=== PATIENT | female | born 1975 | race Caucasian/White ===

== ENCOUNTER 2016-03-23 10:10 | Emergency (ER) | payer SELFPAY ==
[2016-03-23 10:29] VITALS: BP 153/99
[2016-03-23] MEDS ORDERED: ONDANSETRON 4 MG TAB.RAPDIS PO ONE (10:30)
--- NOTE | 2016-03-23 10:30 | ER Document Report ---
ED Medical Screen (RME) - General Stated Complaint: STOMACH PAIN Notes: all night throwing up, 5pm sudden onset with emesis x8. states she had sudden onset abdominal pain 4/5 in severity at 4pm, epigastric area admits to hematemsis x 5 took phenergan without any improvement h/o GERD previously on Nexium PSH for tubal ligation TRAVEL OUTSIDE OF THE [place] IN LAST 30 DAYS: No - Related Data Allergies/Adverse Reactions: diphenhydramine [From Benadryl] Allergy (Verified 03/23/16 10:26) lithium Allergy (Verified 03/23/16 10:26) Past Medical History Neurological Medical History: Reports: Hx Seizures Psychiatric Medical History: Reports: Hx Bipolar Disorder Past Surgical History: Reports: Hx Tonsillectomy, Hx Tubal Ligation - Immunizations Hx Diphtheria, Pertussis, Tetanus Vaccination: Yes
== END 2016-03-23 11:30 | disposition left against medical advice (07) ==
LOC: ER 10:10
DX: Z53.9 Procedure and treatment not carried out, unspecified reason (principal); R10.9 Unspecified abdominal pain; R10.13 Epigastric pain
CPT/HCPCS: 99281; S0119

== ENCOUNTER 2016-04-17 16:38 | Emergency (ER) | payer SELFPAY ==
[2016-04-17] MEDS ORDERED: ASPIRIN 81 MG TABLET, CHEWABLE PO ONE (17:11)
[2016-04-17] MEDS ORDERED: ONDANSETRON 4 MG TAB.RAPDIS PO ONE (17:11)
--- NOTE | 2016-04-17 17:12 | ER Document Report ---
ED Medical Screen (RME) - General Stated Complaint: CHEST PAIN Mode of Arrival: Ambulatory Information source: Patient Notes: Patient complains of right-sided chest pain started yesterday. Patient complains of right-sided abdominal pain for the past 3 days. Patient reports nausea vomiting 3 episodes today. No urinary symptoms. Patient reports occasional difficulty breathing. hx: Hepatitis C, PTSD, anxiety, bipolar, hypertension I have greeted and performed a rapid initial assessment of this patient. A comprehensive ED assessment and evaluation of the patient, analysis of test results and completion of the medical decision making process will be conducted by additional ED providers. TRAVEL OUTSIDE OF THE [place] IN LAST 30 DAYS: No - Related Data Allergies/Adverse Reactions: diphenhydramine [From Benadryl] Allergy (Verified 03/23/16 10:26) lithium Allergy (Verified 03/23/16 10:26) Past Medical History Neurological Medical History: Reports: Hx Seizures Renal/ Medical History: Denies: Hx Peritoneal Dialysis Psychiatric Medical History: Reports: Hx Bipolar Disorder Past Surgical History: Reports: Hx Tonsillectomy, Hx Tubal Ligation - Immunizations Hx Diphtheria, Pertussis, Tetanus Vaccination: Yes Physical Exam - Abdominal Tenderness: Tender - Right side of abdomen
[2016-04-17 17:52] LABS: ABSOLUTE BASOPHILS # (AUTO) 0.1 10^3/uL (0.0-0.2); ABSOLUTE LYMPHOCYTES (AUTO) 2.6 10^3/uL (0.5-4.7); ABSOLUTE MONOCYTES (AUTO) 0.6 10^3/uL (0.1-1.4); ABSOLUTE NEUT (AUTO) 6.8 10^3/uL (1.7-8.2); BASOPHILS % (AUTO) 0.8 % (0-2); EOSINOPHILS % (AUTO) 0.2 % (0-6); HEMATOCRIT 40.1 % (36.0-47.0); HEMOGLOBIN 13.7 g/dL (12.0-15.5); LYMPHOCYTES % (AUTO) 25.8 % (13-45); MEAN CORPUSCULAR HEMOGLOBIN 29.8 pg (27.0-33.4); MEAN CORPUSCULAR HGB CONC 34.1 g/dL (32.0-36.0); MEAN CORPUSCULAR VOLUME 87 fl (80-97); MONOCYTES % (AUTO) 5.8 % (3-13); RED CELL DISTRIBUTION WIDTH 13.5 % (11.5-14.0); SEGMENTED NEUTROPHILS % (AUTO) 67.4 % (42-78); WHITE BLOOD COUNT 10.1 10^3/uL (4.0-10.5)
[2016-04-17 18:07] LABS: ALANINE AMINOTRANSFERASE 40 U/L (9-52); ALBUMIN 4.1 g/dL (3.5-5.0); ALKALINE PHOSPHATASE 61 U/L (38-126); ANION GAP 14 (5-19); ASPARTATE AMINO TRANSFERASE 28 U/L (14-36); BILIRUBIN,TOTAL 0.3 mg/dL (0.2-1.3); BLOOD UREA NITROGEN 12 mg/dL (7-20); CALCIUM 9.4 mg/dL (8.4-10.2); CARBON DIOXIDE 25 mmol/L (22-30); CHLORIDE 103 mmol/L (98-107); CREATINE KINASE 54 U/L (30-135); CREATININE RESULT 0.85 mg/dL (0.52-1.25); GLUCOSE 85 mg/dL (75-110); LIPASE 69.9 U/L (23-300); POTASSIUM 4.1 mmol/L (3.6-5.0); SODIUM 141.6 mmol/L (137-145); TOTAL PROTEIN 8.1 g/dL (6.3-8.2)
[2016-04-17 18:18] LABS: CREATINE KINASE MB < 0.22 ng/mL (<4.55); TROPONIN I < 0.012 ng/mL
[2016-04-17 23:27] LABS: APPEARANCE,URINE CLOUDY; BILIRUBIN,URINE NEGATIVE (NEGATIVE); GLUCOSE, URINE NEGATIVE (NEGATIVE); KETONES,URINE NEGATIVE (NEGATIVE); LEUKOCYTE ESTERASE,URINE LARGE (NEGATIVE); NITRITE,URINE NEGATIVE (NEGATIVE); PROTEIN,URINE NEGATIVE (NEGATIVE); UROBILINOGEN,URINE NEGATIVE mg/dL (<2.0)
[2016-04-17 23:42] LABS: URINE BARBITURATES SCREEN NEGATIVE; URINE METHADONE SCREEN NEGATIVE; URINE OPIATES LOW NEGATIVE; URINE PHENCYCLIDINE SCREEN NEGATIVE
== END 2016-04-17 22:50 | disposition left against medical advice (07) ==
LOC: ER 16:38
DX: R07.9 Chest pain, unspecified (principal); R10.9 Unspecified abdominal pain; R11.2 Nausea with vomiting, unspecified; R06.00 Dyspnea, unspecified; I10 Essential (primary) hypertension; Z88.8 Allergy status to other drugs, medicaments and biological substances; Z53.20 Procedure and treatment not carried out because of patient's decision for unspecified reasons
CPT/HCPCS: 99281; 36415; 82553; 82550; 83690; 84703; 85025; 80053; 81001; 84484; 80307; 71020; S0119

== ENCOUNTER 2016-04-18 09:11 | Inpatient (IN) | payer SELFPAY ==
[2016-04-18 10:18] LABS: ABSOLUTE LYMPHOCYTES (AUTO) 2.7 10^3/uL (0.5-4.7); ABSOLUTE MONOCYTES (AUTO) 0.7 10^3/uL (0.1-1.4); ABSOLUTE NEUT (AUTO) 11.3 10^3/uL (1.7-8.2); BASOPHILS % (AUTO) 0.2 % (0-2); HEMATOCRIT 43.2 % (36.0-47.0); HEMOGLOBIN 14.9 g/dL (12.0-15.5); HGB HCT DIFFERENCE 1.5; LYMPHOCYTES % (AUTO) 18.1 % (13-45); MEAN CORPUSCULAR HEMOGLOBIN 30.1 pg (27.0-33.4); MEAN CORPUSCULAR HGB CONC 34.5 g/dL (32.0-36.0); MEAN CORPUSCULAR VOLUME 87 fl (80-97); MONOCYTES % (AUTO) 4.6 % (3-13); RED BLOOD COUNT 4.95 10^6/uL (3.72-5.28); RED CELL DISTRIBUTION WIDTH 13.6 % (11.5-14.0); SEGMENTED NEUTROPHILS % (AUTO) 77.1 % (42-78); WHITE BLOOD COUNT 14.7 10^3/uL (4.0-10.5)
[2016-04-18 10:25] LABS: APPEARANCE,URINE SLIGHTLY-CLOUDY; BILIRUBIN,URINE NEGATIVE (NEGATIVE); GLUCOSE, URINE NEGATIVE (NEGATIVE); KETONES,URINE NEGATIVE (NEGATIVE); LEUKOCYTE ESTERASE,URINE SMALL (NEGATIVE); NITRITE,URINE NEGATIVE (NEGATIVE); PROTEIN,URINE 100 mg/dL (NEGATIVE); URINE SPECIFIC GRAVITY 1.015
[2016-04-18 10:36] LABS: ALANINE AMINOTRANSFERASE 46 U/L (9-52); ALBUMIN 5.1 g/dL (3.5-5.0); ALKALINE PHOSPHATASE 76 U/L (38-126); ANION GAP 16 (5-19); ASPARTATE AMINO TRANSFERASE 31 U/L (14-36); BILIRUBIN,TOTAL 0.6 mg/dL (0.2-1.3); BLOOD UREA NITROGEN 11 mg/dL (7-20); CALCIUM 10.5 mg/dL (8.4-10.2); CARBON DIOXIDE 26 mmol/L (22-30); CHLORIDE 103 mmol/L (98-107); CREATININE RESULT 0.96 mg/dL (0.52-1.25); GLUCOSE 104 mg/dL (75-110); POTASSIUM 4.3 mmol/L (3.6-5.0); SODIUM 144.8 mmol/L (137-145); TOTAL PROTEIN 9.1 g/dL (6.3-8.2)
[2016-04-18] MEDS ORDERED: ONDANSETRON 4 MG TAB.RAPDIS PO ONE (10:37)
--- NOTE | 2016-04-18 10:39 | ER Document Report ---
ED Medical Screen (RME) - General Chief Complaint: Vomiting Stated Complaint: DIZZY Mode of Arrival: Ambulatory Information source: Patient Notes: Patient presents complaining of abdominal tenderness that radiates around to her back for the past 3 days. Patient reports subjective fever. Patient complains of nausea, vomiting, diarrhea. Patient states she's vomited about 4 times today and had diarrhea 2. Patient denies any urinary symptoms hx: Hepatitis C, bipolar, PTSD, anxiety I have greeted and performed a rapid initial assessment of this patient. A comprehensive ED assessment and evaluation of the patient, analysis of test results and completion of the medical decision making process will be conducted by additional ED providers. TRAVEL OUTSIDE OF THE [place] IN LAST 30 DAYS: No - Related Data Allergies/Adverse Reactions: diphenhydramine [From Benadryl] Allergy (Verified 04/18/16 09:26) lithium Allergy (Verified 04/18/16 09:26) Past Medical History Neurological Medical History: Reports: Hx Seizures Renal/ Medical History: Denies: Hx Peritoneal Dialysis Psychiatric Medical History: Reports: Hx Bipolar Disorder Past Surgical History: Reports: Hx Tonsillectomy, Hx Tubal Ligation - Immunizations Hx Diphtheria, Pertussis, Tetanus Vaccination: Yes Physical Exam - Vital signs Vitals: Temp Pulse Resp BP Pulse Ox 98.0 F 97 18 149/105 H 98 04/18/16 09:29 04/18/16 09:29 04/18/16 09:29 04/18/16 09:29 04/18/16 09:29 - Abdominal Tenderness: Tender - Generalized abdomen Course - Vital Signs Vital signs: Temp Pulse Resp BP Pulse Ox 98.0 F 97 18 149/105 H 98 04/18/16 09:29 04/18/16 09:29 04/18/16 09:29 04/18/16 09:29 04/18/16 09:29 - Laboratory Result Diagrams: 04/18/16 09:50 04/18/16 09:50 Laboratory results interpreted by me: 04/18/16 04/18/16 04/18/16 09:50 09:50 09:50 WBC 14.7 H Absolute Neutrophils 11.3 H Calcium 10.5 H Total Protein 9.1 H Albumin 5.1 H Urine Protein 100 H Urine Urobilinogen 2.0 H Ur Leukocyte Esterase SMALL H
[2016-04-18 10:42] LABS: ADD ON TESTING BLD IN LAB ACKNOWLEDGE
[2016-04-18 11:24] LABS: LIPASE 249.2 U/L (23-300)
[2016-04-18] MEDS ORDERED: MORPHINE SULFATE 10 MG/ML INJ IM ONE (11:41)
[2016-04-18] MEDS ORDERED: PROMETHAZINE HCL INJ 25 MG/1 ML VIAL IM ONE (11:42)
--- NOTE | 2016-04-18 11:47 | ER Document Report ---
ED GI/ - General Chief Complaint: Vomiting Stated Complaint: DIZZY Mode of Arrival: Ambulatory Information source: Patient Notes: This is a 40-year-old female who presents with nausea vomiting and diarrhea as well as upper abdominal pain and right flank pain for the past 2 days. She presented to the ER last night but she left without being seen. She states that she continued to vomit last night and so she returned to the ER today. She reports subjective fevers at home. She has had no known sick contacts or recent travel. She denies dysuria or hematuria. She states that she has not been able to tolerate anything by mouth. She received sublingual Zofran upon arrival but states that it has not helped. TRAVEL OUTSIDE OF THE [place] IN LAST 30 DAYS: No - Related Data Allergies/Adverse Reactions: diphenhydramine [From Benadryl] Allergy (Verified 04/18/16 09:26) lithium Allergy (Verified 04/18/16 09:26) Home Medications: Current Home Medications Clonazepam [Klonopin 1 mg Tablet] 1 mg PO BID 04/18/16 [History] Clonidine HCl [Catapres 0.1 mg Tablet] 0.1 mg PO QAM 04/18/16 [History] Clonidine HCl [Catapres] 0.2 mg PO QHS 04/18/16 [History] Gabapentin [Neurontin 300 mg Capsule] 300 mg PO TID 04/18/16 [History] Quetiapine Fumarate [Seroquel Xr] 300 mg PO QHS 04/18/16 [History] Past Medical History - General Information source: Patient - Social History Smoking Status: Never Smoker Family History: Reviewed & Not Pertinent Patient has suicidal ideation: No Patient has homicidal ideation: No - Past Medical History Cardiac Medical History: Reports: None Neurological Medical History: Reports: Hx Seizures Renal/ Medical History: Denies: Hx Peritoneal Dialysis GI Medical History: Reports: Hx Hepatitis Psychiatric Medical History: Reports: Hx Anxiety, Hx Bipolar Disorder Past Surgical History: Reports: Hx Tonsillectomy, Hx Tubal Ligation - Immunizations Hx Diphtheria, Pertussis, Tetanus Vaccination: Yes Review of Systems - Review of Systems Notes: REVIEW OF SYSTEMS: CONSTITUTIONAL : Subjective fevers at home for 2 days EENT: Denies eye, ear, throat, or mouth pain or symptoms. Denies nasal or sinus congestion. CARDIOVASCULAR: Denies chest pain. RESPIRATORY: Denies cough, cold, or chest congestion. Denies shortness of breath, difficulty breathing, or wheezing. GASTROINTESTINAL: As per history of present illness GENITOURINARY: Mild dysuria 1 day MUSCULOSKELETAL: Denies neck or back pain or joint pain or swelling. SKIN: Denies rash or skin lesions. HEMATOLOGIC : Denies easy bruising or bleeding. LYMPHATIC: Denies swollen, enlarged glands. NEUROLOGICAL: Headache as per history of present illness PSYCHIATRIC: Denies anxiety or stress or depression. ALL OTHER SYSTEMS REVIEWED AND NEGATIVE. Physical Exam - Vital signs Vitals: Temp Pulse Resp BP Pulse Ox 98.0 F 97 18 149/105 H 98 04/18/16 09:29 04/18/16 09:29 04/18/16 09:29 04/18/16 09:29 04/18/16 09:29 - Notes Notes: PHYSICAL EXAMINATION: GENERAL: Well-appearing, well-nourished and in no acute distress, but appears to not feel well. HEAD: Atraumatic, normocephalic. EYES: Pupils equal round and reactive to light, extraocular movements intact, sclera anicteric, conjunctiva are normal. No photophobia ENT: nares patent, oropharynx clear without exudates. Moist mucous membranes. NECK: Normal range of motion, supple without lymphadenopathy LUNGS: Breath sounds clear to auscultation bilaterally and equal. No wheezes rales or rhonchi. HEART: Regular rate and rhythm without murmurs ABDOMEN: Soft, mild tenderness to palpation in the right upper quadrant and right flank. No guarding, rebound, or rigidity. Negative Bueno sign. Normal Bowel sounds EXTREMITIES: Normal range of motion NEUROLOGICAL: Cranial nerves grossly intact. Normal speech, normal gait. No gross focal motor or sensory deficit PSYCH: Normal mood, normal affect. SKIN: Warm, Dry, normal turgor, no rashes or lesions noted. Course - Re-evaluation Re-evalutation: 04/18/16 11:46 Patient has a benign abdominal exam at this time but noted to have a leukocytosis and urinary tract infection. We'll obtain a stone protocol CT and will treat her nausea and pain. 04/18/16 14:[address] scan reviewed. The patient does have a leukocytosis. Her CT image traits no kidney stones. However, her appendix was difficult to visualize and what was felt to be the appendix has a thickened wall. I went back to reexamine the patient states she is feeling much better. On her abdominal exam however she does have suprapubic and right lower quadrant tenderness to deep palpation. There is no guarding or rebound and no acute abdomen. However with this right lower quadrant tenderness along with the findings on the CT scan concerning for possible early appendicitis, I have elected to consult the surgeon. I did discuss the case with who at this point recommends IV fluids, antibiotics, and he will evaluate the patient 04/18/16 14:24 Discussed with surgery again and the plan is to admit the patient upstairs with IV fluids and IV antibiotics and keep her nothing by mouth and he will evaluate her for appendectomy later today. Discussed this with the patient and she is very comfortable with this plan and all questions are answered. 04/18/16 22:49 - Vital Signs Vital signs: Temp Pulse Resp BP Pulse Ox 98.7 F 100 16 170/91 H 99 04/18/16 19:20 04/18/16 19:20 04/18/16 19:20 04/18/16 19:20 04/18/16 19:20 - Laboratory Result Diagrams: 04/18/16 09:50 04/18/16 09:50 Laboratory results interpreted by me: 04/18/16 04/18/16 04/18/16 09:50 09:50 09:50 WBC 14.7 H Absolute Neutrophils 11.3 H Calcium 10.5 H Total Protein 9.1 H Albumin 5.1 H Urine Protein 100 H Urine Urobilinogen 2.0 H Ur Leukocyte Esterase SMALL H - Diagnostic Test Radiology reviewed: Reports reviewed - CT abdomen and pelvis without IV contrast demonstrates no urolithiasis. The area that is felt to be her appendix appears as if the wall is thickened Discharge - Discharge Clinical Impression: Right lower quadrant abdominal pain UTI (urinary tract infection) Qualifiers: Urinary tract infection type: site unspecified Hematuria presence: without hematuria Qualified Code(s): N39.0 - Urinary tract infection, site not specified Vomiting Qualifiers: Vomiting type: unspecified Vomiting Intractability: non-intractable Nausea presence: with nausea Qualified Code(s): R11.2 - Nausea with vomiting, unspecified Condition: Stable Disposition: ADMITTED OBSERVATION Admitting Provider: Surgicalist - [facility] Unit Admitted: Medical Floor
[2016-04-18] MEDS ORDERED: NORMAL SALINE 1000 ML 1,000 ML IV ONE (12:43)
[2016-04-18] MEDS ORDERED: KETOROLAC TROMETHAMINE INJ/PF 30 MG/1 ML SDV IV ONE (12:46)
[2016-04-18] MEDS ORDERED: CEFOXITIN 1 GM/D5W RTU 50 ML IV ONE (14:10)
[2016-04-18] MEDS ORDERED: DEXTROSE 5%-1/2 NORMAL SALINE 1,000 ML IV ONE (14:11)
[2016-04-18] MEDS ORDERED: ONDANSETRON HCL INJ/PF 4 MG/2 ML SDV IV PRN (16:27)
--- NOTE | 2016-04-18 16:34 | PDOC H&P ---
History of Present Illness Admission Date/PCP: 04/18/16 16:12 History of Present Illness: EZEQUIEL SCHMIDT is a 40 year old female presents to the emergency department complaining of acute onset abdominal pain multiple episodes of nausea and vomiting. She was seen in the emergency department last p.m., and left without being seen because of the long wait time. The patient was reevaluated this morning and was found to have right flank pain. She had a CT scan of the abdomen and pelvis without oral and IV contrast which showed constipation and findings consistent with possible early appendicitis. Surgery was consulted and she was advised admission. With the patient she had similar episode several weeks ago, which resolved spontaneously. She denies history of trauma, previous abdominal surgery, history of abdominal diagnoses. She does have problems with recurrent constipation. Denies family history of gastrointestinal disorders. Past Medical History Cardiac Medical History: Reports: None Neurological Medical History: Reports: Seizures GI Medical History: Reports: Hepatitis Psychiatric Medical History: Reports: Bipolar Disorder, Other - History of PTSD Past Surgical History Past Surgical History: Reports: Tonsillectomy, Tubal Ligation Social History Smoking Status: Never Smoker Family History Family History: Reviewed & Not Pertinent Parental Family History Reviewed: Yes Children Family History Reviewed: Yes Sibling(s) Family History Reviewed.: Yes Medication/Allergy Home Medications: Cephalexin Monohydrate [Keflex 500 mg Capsule] 500 mg PO QID #20 capsule Clonazepam [Klonopin] 0.5 mg PO BID PRN #20 tablet 12/18/15 Sulfamethoxazole/Trimethoprim [Bactrim Ds Tablet] 1 each PO BID #20 tablet 01/24 Allergies/Adverse Reactions: diphenhydramine [From Benadryl] Allergy (Verified 04/18/16 09:26) lithium Allergy (Verified 04/18/16 09:26) Physical Exam Vital Signs: Temp Pulse Resp BP Pulse Ox 98.6 F 85 16 146/101 H 98 04/18/16 15:23 04/18/16 15:23 04/18/16 15:23 04/18/16 15:23 04/18/16 15:23 General appearance: PRESENT: no acute distress Head exam: PRESENT: normocephalic Eye exam: PRESENT: EOMI Mouth exam: PRESENT: moist Neck exam: PRESENT: full ROM Respiratory exam: PRESENT: clear to auscultation annie Cardiovascular exam: PRESENT: RRR Pulses: PRESENT: normal carotid pulses, normal radial pulses, normal femoral pulses GI/Abdominal exam: PRESENT: other - Soft diffusely tender; does not localize to my examination at this time. No organomegaly. Rectal exam: PRESENT: deferred Psychiatric exam: PRESENT: appropriate affect Skin exam: PRESENT: dry Results Impressions: Limited or Localized CT 04/18/16 11:42 IMPRESSION: No renal or ureteric calculi are identified. A moderate amount a gas and fecal material is identified throughout the colon. The appendix is difficult to delineate. What may represent the appendix is identified in the right lower quadrant which contains air in the lumen but there is some apparent thickening of the [place]. Clinical correlation is recommended. Other findings as noted above Surgeons addendum: The tire colon is distended with stool. No free air, or fluid in the peritoneal cavity. The radiologic findings of acute appendicitis are subtle Assessment & Plan - Diagnosis (1) Right lower quadrant abdominal pain Is this a current diagnosis for this admission?: YesPlan: 1. The patient's clinical history, physical examination and laboratory findings are suggestive but not diagnostic of acute appendicitis. The colon is full of stool, and currently the patient's physical exam does not localize tenderness to the right lower quadrant. 2. I suggested the patient be admitted for observation, serial abdominal exam, and minimization of pain medication. 3. We will ask internal medicine service to assist with management of bipolar medications - Time Time Spent: 30 to 50 Minutes Critical Time spent with patient: 15-24 minutes Anticipated discharge: Home - Inpatient Certification Medical Necessity: Need For IV Fluids, Need for Pain Control
[2016-04-18] MEDS: MORPHINE SULFATE 10 MG/ML INJ IV SCH ×2 (17:09→20:50)
[2016-04-18] MEDS: DEXTROSE 5%-LACTATED RINGERS 1,000 ML IV PRN (17:09)
[2016-04-18] MEDS ORDERED: INFLUENZA ADLT QUAD (36MOS+) 2016-17 VAC 0.5 ML SYR IM PRN (18:01)
--- NOTE | 2016-04-18 19:01 | PDOC CONSULTATION ---
Consultation Consult Date: 04/18/16 Attending physician:: VLAD BUNN Consult reason:: Management of psychiatric medications, elevated blood pressure History of Present Illness Admission Date/PCP: 04/18/16 16:26 Patient complains of: Abdominal pain nausea and vomiting History of Present Illness: EZEQUIEL SCHMIDT is a 40 year old female presents to the emergency department complaining of acute onset abdominal pain multiple episodes of nausea and vomiting. She was seen in the emergency department last p.m., and left without being seen because of the long wait time. The patient was reevaluated this morning and was found to have right flank pain. She had a CT scan of the abdomen and pelvis without oral and IV contrast which showed constipation and findings consistent with possible early appendicitis. Surgery was consulted and she was advised admission. With the patient she had similar episode several weeks ago, which resolved spontaneously. She denies history of trauma, previous abdominal surgery, history of abdominal diagnoses. She does have problems with recurrent constipation. Denies family history of gastrointestinal disorders. She was noted to have elevated blood pressure. She is on several medications for PTSD and anxiety and therefore a consultation was made for assistance with her home medications. She denies having medication for hypertension. Past Medical History Past Medical History: Medication reconciliation pending verification from the patient's pharmacist Neurological Medical History: Reports: Seizures GI Medical History: Reports: Hepatitis - CC Psychiatric Medical History: Reports: Bipolar Disorder, Depression, General Anxiety Disorder, Other - History of PTSD Past Surgical History Past Surgical History: Reports: Tonsillectomy, Tubal Ligation Social History Smoking Status: Former Smoker Frequency of Alcohol Use: Occasional Hx Recreational Drug Use: No Drugs: None Hx Prescription Drug Abuse: No - Advance Directive Resuscitation Status: Full Code Family History Family History: Malignancy, Other - Cerebral aneurysm Parental Family History Reviewed: Yes Children Family History Reviewed: Yes Sibling(s) Family History Reviewed.: Yes Medication/Allergy Home Medications: Clonazepam [Klonopin 1 mg Tablet] 1 mg PO BID 04/18/16 Clonidine HCl [Catapres 0.1 mg Tablet] 0.1 mg PO QAM 04/18/16 Clonidine HCl [Catapres] 0.2 mg PO QHS 04/18/16 Gabapentin [Neurontin 300 mg Capsule] 300 mg PO TID 04/18/16 Quetiapine Fumarate [Seroquel Xr] 300 mg PO QHS 04/18/16 Allergies/Adverse Reactions: diphenhydramine [From Benadryl] Allergy (Verified 04/18/16 09:26) lithium Allergy (Verified 04/18/16 09:26) Review of Systems Constitutional: PRESENT: chills, fever(s). ABSENT: headache(s), night sweats, weight gain, weight loss Eyes: ABSENT: visual disturbances Ears: ABSENT: hearing changes Nose, Mouth, and Throat: ABSENT: mouth pain, sore throat Cardiovascular: ABSENT: chest pain, dyspnea on exertion, edema, orthropnea, palpitations Respiratory: ABSENT: cough, dyspnea, hemoptysis Gastrointestinal: PRESENT: abdominal pain, nausea, vomiting. ABSENT: coffee ground emesis, constipation, diarrhea, hematemesis, hematochezia, melena Genitourinary: ABSENT: difficulty urinating, dysuria, hematuria Musculoskeletal: ABSENT: joint swelling Integumentary: ABSENT: pruritus, rash, wounds Neurological: ABSENT: abnormal gait, abnormal speech, confusion, dizziness, focal weakness, syncope Psychiatric: PRESENT: anxiety, depression. ABSENT: homidical ideation, suicidal ideation Endocrine: ABSENT: cold intolerance, heat intolerance, polydipsia, polyuria Hematologic/Lymphatic: ABSENT: easy bleeding, easy bruising Physical Exam Vital Signs: Temp Pulse Resp BP Pulse Ox 98.4 F 95 16 154/117 H 100 04/18/16 16:56 04/18/16 16:56 04/18/16 16:56 04/18/16 16:56 04/18/16 16:56 Intake & Output 04/17/16 04/18/16 04/19/16 06:59 06:59 06:59 Weight 87.6 kg General appearance: PRESENT: no acute distress, cooperative, obese Head exam: PRESENT: atraumatic, normocephalic Eye exam: PRESENT: conjunctiva pink, EOMI, PERRLA. ABSENT: scleral icterus Ear exam: PRESENT: normal external ear exam Mouth exam: PRESENT: moist, neck supple, tongue midline Neck exam: ABSENT: carotid bruit, JVD, lymphadenopathy, thyromegaly Respiratory exam: PRESENT: clear to auscultation annie. ABSENT: rales, rhonchi, wheezes Cardiovascular exam: PRESENT: RRR. ABSENT: diastolic murmur, rubs, systolic murmur Pulses: PRESENT: normal dorsalis pedis pul Vascular exam: PRESENT: normal capillary refill GI/Abdominal exam: PRESENT: hyperactive bowel sounds, soft, tenderness - Epigastric and right lower quadrant. ABSENT: distended, guarding, mass, organolmegaly, rebound Rectal exam: PRESENT: deferred Extremities exam: PRESENT: full ROM. ABSENT: calf tenderness, clubbing, pedal edema Neurological exam: PRESENT: alert, awake, oriented to person, oriented to place , oriented to time, oriented to situation Psychiatric exam: PRESENT: appropriate affect, normal mood. ABSENT: homicidal ideation, suicidal ideation Skin exam: PRESENT: dry, intact, warm. ABSENT: cyanosis, rash Results Impressions: Limited or Localized CT 04/18/16 11:42 IMPRESSION: No renal or ureteric calculi are identified. A moderate amount a gas and fecal material is identified throughout the colon. The appendix is difficult to delineate. What may represent the appendix is identified in the right lower quadrant which contains air in the lumen but there is some apparent thickening of the [place]. Clinical correlation is recommended. Other findings as noted above Assessment & Plan - Diagnosis (1) Elevated blood pressure reading Is this a current diagnosis for this admission?: Yes (2) PTSD (post-traumatic stress disorder) Is this a current diagnosis for this admission?: Yes (3) Bipolar disorder Qualifiers: Active/Remission status: remission status unspecified Qualified Code (s): F31.9 - Bipolar disorder, unspecified Is this a current diagnosis for this admission?: Yes (4) Borderline personality disorder Is this a current diagnosis for this admission?: Yes (5) Seizure Is this a current diagnosis for this admission?: Yes (6) History of hepatitis C Is this a current diagnosis for this admission?: Yes - Time Time Spent: 30 to 50 Minutes - Plan Summary Plan Summary: We are going to resume the patient's home medications including Seroquel, gabapentin, and Klonopin. We will give as needed hydralazine for systolic blood pressure greater than 180. Thank you so much for letting us participate in her care . We will monitor patient with you.
[2016-04-18] MEDS: PROMETHAZINE HCL INJ 25 MG/1 ML VIAL IV PRN (20:50)
[2016-04-18] MEDS: CLONAZEPAM 1 MG TABLET PO SCH (22:02)
[2016-04-18] MEDS: QUETIAPINE FUMARATE 100 MG TABLET PO SCH (22:02)
[2016-04-18] MEDS: GABAPENTIN 300 MG CAPSULE PO SCH (22:02)
[2016-04-19] MEDS: MORPHINE SULFATE 10 MG/ML INJ IV SCH ×5 (00:52→12:05)
[2016-04-19] MEDS: GABAPENTIN 300 MG CAPSULE PO SCH ×3 (05:44→21:51)
[2016-04-19 07:52] LABS: ABSOLUTE LYMPHOCYTES (AUTO) 3.2 10^3/uL (0.5-4.7); ABSOLUTE MONOCYTES (AUTO) 0.7 10^3/uL (0.1-1.4); ABSOLUTE NEUT (AUTO) 3.8 10^3/uL (1.7-8.2); BASOPHILS % (AUTO) 0.3 % (0-2); EOSINOPHILS % (AUTO) 0.4 % (0-6); HEMATOCRIT 38.2 % (36.0-47.0); HGB HCT DIFFERENCE 0.2; LYMPHOCYTES % (AUTO) 41.4 % (13-45); MEAN CORPUSCULAR HEMOGLOBIN 29.8 pg (27.0-33.4); MEAN CORPUSCULAR HGB CONC 33.5 g/dL (32.0-36.0); MEAN CORPUSCULAR VOLUME 89 fl (80-97); MONOCYTES % (AUTO) 8.5 % (3-13); RED CELL DISTRIBUTION WIDTH 13.8 % (11.5-14.0); SEGMENTED NEUTROPHILS % (AUTO) 49.4 % (42-78); WHITE BLOOD COUNT 7.7 10^3/uL (4.0-10.5)
[2016-04-19 07:53] LABS: HEMOGLOBIN 12.8 g/dL (12.0-15.5)
[2016-04-19 08:09] LABS: ALANINE AMINOTRANSFERASE 41 U/L (9-52); ALKALINE PHOSPHATASE 58 U/L (38-126); ANION GAP 11 (5-19); ASPARTATE AMINO TRANSFERASE 28 U/L (14-36); BILIRUBIN,TOTAL 0.7 mg/dL (0.2-1.3); BLOOD UREA NITROGEN 10 mg/dL (7-20); CARBON DIOXIDE 29 mmol/L (22-30); CHLORIDE 105 mmol/L (98-107); GLUCOSE 120 mg/dL (75-110); POTASSIUM 3.7 mmol/L (3.6-5.0); SODIUM 144.8 mmol/L (137-145); TOTAL PROTEIN 7.1 g/dL (6.3-8.2)
[2016-04-19] MEDS: PROMETHAZINE HCL INJ 25 MG/1 ML VIAL IV PRN ×3 (09:03→21:53)
[2016-04-19] MEDS: CLONAZEPAM 1 MG TABLET PO SCH ×2 (09:03→21:51)
[2016-04-19] MEDS ORDERED: ERTAPENEM SODIUM INJ 1 GM VIAL IV SCH (10:00)
--- NOTE | 2016-04-19 10:03 | PDOC PROGRESS REPORT ---
Subjective Progress Note for:: 04/19/16 Subjective:: Patient has some mild headache this morning. Patient reports that she takes clonidine also for anxiety and for her blood pressure. She is still has abdominal discomfort mainly on the lower hypogastric and right lower quadrant. No nausea or vomiting. No chills or fever. Physical Exam Vital Signs: Temp Pulse Resp BP Pulse Ox 98.4 F 70 18 131/84 H 98 04/19/16 07:31 04/19/16 07:31 04/19/16 07:31 04/19/16 07:31 04/19/16 07:31 Intake & Output 04/18/16 04/19/16 04/20/16 06:59 06:59 06:59 Intake Total 1593 Balance 1593 Weight 88.3 kg General appearance: PRESENT: no acute distress, cooperative, obese Head exam: PRESENT: normocephalic Eye exam: PRESENT: EOMI Mouth exam: PRESENT: moist, neck supple Neck exam: ABSENT: JVD Respiratory exam: PRESENT: clear to auscultation annie. ABSENT: rhonchi, wheezes Cardiovascular exam: PRESENT: RRR GI/Abdominal exam: PRESENT: hypoactive bowel sounds, soft, tenderness - On the lower quadrants mainly in the right Extremities exam: ABSENT: pedal edema Neurological exam: PRESENT: alert, awake, oriented to situation Skin exam: PRESENT: dry, warm. ABSENT: cyanosis Results Laboratory Results: 04/19/16 06:28 04/19/16 06:28 04/19/16 04/19/16 06:28 06:28 WBC 7.7 RBC 4.30 Hgb 12.8 D Hct 38.2 MCV 89 MCH 29.8 MCHC 33.5 RDW 13.8 Plt Count 263 Seg Neutrophils % 49.4 Lymphocytes % 41.4 Monocytes % 8.5 Eosinophils % 0.4 Basophils % 0.3 Absolute Neutrophils 3.8 Absolute Lymphocytes 3.2 Absolute Monocytes 0.7 Absolute Eosinophils 0.0 Absolute Basophils 0.0 Sodium 144.8 Potassium 3.7 Chloride 105 Carbon Dioxide 29 Anion Gap 11 BUN 10 Creatinine 0.90 Est GFR ( Amer) > 60 Est GFR (Non-Af Amer) > 60 Glucose 120 H Calcium 9.0 Total Bilirubin 0.7 AST 28 ALT 41 Alkaline Phosphatase 58 Total Protein 7.1 Albumin 4.0 Impressions: Limited or Localized CT 04/18/16 11:42 IMPRESSION: No renal or ureteric calculi are identified. A moderate amount a gas and fecal material is identified throughout the colon. The appendix is difficult to delineate. What may represent the appendix is identified in the right lower quadrant which contains air in the lumen but there is some apparent thickening of the [place]. Clinical correlation is recommended. Other findings as noted above Assessment & Plan - Diagnosis (1) Hypertension Qualifiers: Hypertension type: essential hypertension Qualified Code(s): I10 - Essential (primary) hypertension Is this a current diagnosis for this admission?: Yes (2) PTSD (post-traumatic stress disorder) Is this a current diagnosis for this admission?: Yes (3) Bipolar disorder Qualifiers: Active/Remission status: remission status unspecified Qualified Code (s): F31.9 - Bipolar disorder, unspecified Is this a current diagnosis for this admission?: Yes (4) Borderline personality disorder Is this a current diagnosis for this admission?: Yes (5) Seizure Is this a current diagnosis for this admission?: Yes (6) History of hepatitis C Is this a current diagnosis for this admission?: Yes (7) Right lower quadrant abdominal pain Is this a current diagnosis for this admission?: Yes - Time Time Spent with patient: 15-24 minutes - Plan Summary Plan Summary: We are going to restart clonidine. Tylenol as needed for headache. Continue hydration. Management of abdominal pain/appendicitis per surgical service. We will culture her urine. Begin intravenous antibiotics with Invanz.
[2016-04-19] MEDS: ACETAMINOPHEN 325 MG TABLET PO PRN ×2 (10:43→18:26)
[2016-04-19] MEDS ORDERED: MAGNESIUM CITRATE 296 ML BOTTLE PO ONE (11:00)
[2016-04-19] MEDS: ERTAPENEM SODIUM 1 GM in NORMAL SALINE 50 ML IV SCH (11:01)
--- NOTE | 2016-04-19 13:45 | EKG REPORT ---
SEVERITY:- BORDERLINE ECG - SINUS RHYTHM INFERIOR Q WAVES, PROBABLY NORMAL VARIATION : Confirmed by: Celso White MD 19-Apr-2016 13:44:50
[2016-04-19] MEDS ORDERED: HYDROXYZINE HCL 10 MG TABLET PO PRN (14:00)
[2016-04-19] MEDS: MORPHINE SULFATE 10 MG/ML INJ IV PRN ×2 (15:33→20:54)
[2016-04-19] MEDS ORDERED: PANTOPRAZOLE SODIUM 40 MG VIAL IV ONE (15:45)
--- NOTE | 2016-04-19 20:52 | PDOC PROGRESS REPORT ---
Subjective Progress Note for:: 04/19/16 Subjective:: Patient was seen twice day, once in the morning and once in the afternoon. Continues to have nausea. No bowel movement in the last week. Chronic constipation, worse recently. Continued suprapubic abdominal pain, with less intense pain in the right and left lower quadrants. She was given 2 enemas and a bottle of mag citrate and still has not had a bowel movement, only watery brown liquid after the enema. Physical Exam Vital Signs: Temp Pulse Resp BP Pulse Ox 99.0 F 82 20 150/100 H 99 04/19/16 16:43 04/19/16 16:43 04/19/16 16:43 04/19/16 16:43 04/19/16 16:43 Intake & Output 04/18/16 04/19/16 04/20/16 06:59 06:59 06:59 Intake Total 1593 2495 Balance 1593 2495 Weight 88.3 kg General appearance: PRESENT: no acute distress, obese Head exam: PRESENT: normocephalic Eye exam: PRESENT: EOMI Mouth exam: PRESENT: tongue midline GI/Abdominal exam: PRESENT: soft, tenderness - Tender to palpation in the suprapubic region as well as the right and left lower quadrants, but less than the suprapubic region.. ABSENT: distended, firm, guarding, rebound Neurological exam: PRESENT: alert, oriented to situation Skin exam: ABSENT: jaundice Results Laboratory Results: 04/19/16 06:28 04/19/16 06:28 04/19/16 04/19/16 06:28 06:28 WBC 7.7 RBC 4.30 Hgb 12.8 D Hct 38.2 MCV 89 MCH 29.8 MCHC 33.5 RDW 13.8 Plt Count 263 Seg Neutrophils % 49.4 Lymphocytes % 41.4 Monocytes % 8.5 Eosinophils % 0.4 Basophils % 0.3 Absolute Neutrophils 3.8 Absolute Lymphocytes 3.2 Absolute Monocytes 0.7 Absolute Eosinophils 0.0 Absolute Basophils 0.0 Sodium 144.8 Potassium 3.7 Chloride 105 Carbon Dioxide 29 Anion Gap 11 BUN 10 Creatinine 0.90 Est GFR ( Amer) > 60 Est GFR (Non-Af Amer) > 60 Glucose 120 H Calcium 9.0 Total Bilirubin 0.7 AST 28 ALT 41 Alkaline Phosphatase 58 Total Protein 7.1 Albumin 4.0 Impressions: Limited or Localized CT 04/18/16 11:42 IMPRESSION: No renal or ureteric calculi are identified. A moderate amount a gas and fecal material is identified throughout the colon. The appendix is difficult to delineate. What may represent the appendix is identified in the right lower quadrant which contains air in the lumen but there is some apparent thickening of the [place]. Clinical correlation is recommended. Other findings as noted above Status: Image reviewed by me Assessment & Plan - Diagnosis (1) Lower abdominal pain Is this a current diagnosis for this admission?: YesPlan: While I would not rule out appendicitis, this is exceedingly unlikely. Her pain and nausea as of 2.5 weeks duration. At that point her white count should remain elevated and her appendix should be clearly visible on CT scan. Instead , her appendix is not clearly identifiable on CT scan and there is not classic right lower quadrant fat stranding. She was given only 1 dose of antibiotics in the ER on admission, and yet her white count completely normalized, today measuring 7.7 with no left shift. She has serious problem with chronic constipation. She has not had a bowel movement in over a week. 2 enemas and a bottle of mag citrate have failed to yield a real BM, she has only had brown liquid as the enema contents were released. We will proceed with a repeat CAT scan, this time using by mouth and IV contrast, as the first scan had neither. I saw the patient and evaluated her twice today and continue to update her on the findings, the plan and answer questions from her as well as her family & friends. (2) UTI (urinary tract infection) Qualifiers: Urinary tract infection type: site unspecified Hematuria presence: without hematuria Qualified Code(s): N39.0 - Urinary tract infection, site not specified Is this a current diagnosis for this admission?: Yes (3) Vomiting Qualifiers: Vomiting type: unspecified Vomiting Intractability: non-intractable Nausea presence: with nausea Qualified Code(s): R11.2 - Nausea with vomiting, unspecified Is this a current diagnosis for this admission?: YesPlan: Unknown etiology, GI consult ordered tomorrow.
[2016-04-19] MEDS: QUETIAPINE FUMARATE 100 MG TABLET PO SCH (21:52)
[2016-04-19] MEDS ORDERED: CLONIDINE HCL 0.2 MG TABLET PO SCH (22:00)
[2016-04-19] MEDS: DEXTROSE 5%-LACTATED RINGERS 1,000 ML IV PRN (23:44)
[2016-04-20] MEDS ORDERED: NORMAL SALINE 1000 ML 1,000 ML IV ONE (05:36)
[2016-04-20] MEDS: GABAPENTIN 300 MG CAPSULE PO SCH ×3 (05:47→22:49)
[2016-04-20] MEDS ORDERED: CLONIDINE HCL 0.1 MG TABLET PO SCH ×2 (08:00→11:30)
[2016-04-20] MEDS: PROMETHAZINE HCL INJ 25 MG/1 ML VIAL IV PRN (08:03)
--- NOTE | 2016-04-20 09:56 | PDOC PROGRESS REPORT ---
Subjective Progress Note for:: 04/20/16 Subjective:: Feels much better. Very mild lower abdominal discomfort and the nausea. Still has not had good bowel movement however Physical Exam Vital Signs: Temp Pulse Resp BP Pulse Ox 97.2 F 61 18 80/52 L 100 04/20/16 04:57 04/20/16 04:57 04/20/16 04:57 04/20/16 04:57 04/20/16 04:57 Intake & Output 04/19/16 04/20/16 04/21/16 06:59 06:59 06:59 Intake Total 1593 5925 Balance 1593 5925 Weight 88.3 kg 88 kg General appearance: PRESENT: no acute distress Respiratory exam: PRESENT: clear to auscultation annie Cardiovascular exam: PRESENT: RRR GI/Abdominal exam: PRESENT: other - Soft, minimal lower abdominal discomfort with palpation. No peritoneal signs. Patient obese and difficult to tell whether she is distended but abdomen is very soft. Results Laboratory Results: 04/19/16 06:28 04/19/16 06:28 Impressions: Limited or Localized CT 04/18/16 11:42 IMPRESSION: No renal or ureteric calculi are identified. A moderate amount a gas and fecal material is identified throughout the colon. The appendix is difficult to delineate. What may represent the appendix is identified in the right lower quadrant which contains air in the lumen but there is some apparent thickening of the [place]. Clinical correlation is recommended. Other findings as noted above Abdomen/Pelvis CT 04/20/16 00:00 IMPRESSION: SIGNIFICANT FECAL RETENTION. OTHERWISE NO SIGNIFICANT OR ACUTE FINDINGS IN THE ABDOMEN OR PELVIS. Assessment & Plan - Diagnosis (1) Constipation Is this a current diagnosis for this admission?: YesPlan: CT scan demonstrates a normal appendix with the evidence of constipation. Patient's diagnosis is likely chronic constipation. We'll plan bowel prep today. GI consultation pending.
[2016-04-20] MEDS: PANTOPRAZOLE SODIUM 40 MG VIAL IV SCH (10:02)
[2016-04-20] MEDS: ERTAPENEM SODIUM 1 GM in NORMAL SALINE 50 ML IV SCH (10:04)
[2016-04-20] MEDS: CLONAZEPAM 1 MG TABLET PO SCH ×2 (10:04→22:49)
[2016-04-20] MEDS: ACETAMINOPHEN 325 MG TABLET PO PRN (10:49)
[2016-04-20] MEDS ORDERED: PEG 3350/NA SULF,BICARB,CL/KCL 4000 ML PO ONE (11:00)
--- NOTE | 2016-04-20 11:26 | PDOC PROGRESS REPORT ---
Subjective Progress Note for:: 04/20/16 Subjective:: Patient's headache resolved. Patient reports that she takes clonidine anxiety and for her blood pressure and this was started however she developed some hypotension. She is still has abdominal discomfort mainly on the lower hypogastric area but less. No nausea or vomiting. No chills or fever. Physical Exam Vital Signs: Temp Pulse Resp BP Pulse Ox 97.2 F 61 18 80/52 L 100 04/20/16 04:57 04/20/16 04:57 04/20/16 04:57 04/20/16 04:57 04/20/16 04:57 General appearance: PRESENT: no acute distress, cooperative Head exam: PRESENT: normocephalic Eye exam: PRESENT: EOMI Mouth exam: PRESENT: moist, neck supple Neck exam: ABSENT: JVD Respiratory exam: PRESENT: clear to auscultation annie Cardiovascular exam: PRESENT: RRR GI/Abdominal exam: PRESENT: soft, tenderness - Mild on the hypogastric area.. ABSENT: distended Extremities exam: ABSENT: pedal edema Neurological exam: PRESENT: alert, awake, oriented to situation Skin exam: PRESENT: dry, warm. ABSENT: cyanosis Results Impressions: Limited or Localized CT 04/18/16 11:42 IMPRESSION: No renal or ureteric calculi are identified. A moderate amount a gas and fecal material is identified throughout the colon. The appendix is difficult to delineate. What may represent the appendix is identified in the right lower quadrant which contains air in the lumen but there is some apparent thickening of the [place]. Clinical correlation is recommended. Other findings as noted above Abdomen/Pelvis CT 04/20/16 00:00 IMPRESSION: SIGNIFICANT FECAL RETENTION. OTHERWISE NO SIGNIFICANT OR ACUTE FINDINGS IN THE ABDOMEN OR PELVIS. Assessment & Plan - Diagnosis (1) Hypertension Qualifiers: Hypertension type: essential hypertension Qualified Code(s): I10 - Essential (primary) hypertension Is this a current diagnosis for this admission?: Yes (2) PTSD (post-traumatic stress disorder) Is this a current diagnosis for this admission?: Yes (3) Bipolar disorder Qualifiers: Active/Remission status: remission status unspecified Qualified Code (s): F31.9 - Bipolar disorder, unspecified Is this a current diagnosis for this admission?: Yes (4) Borderline personality disorder Is this a current diagnosis for this admission?: Yes (5) Seizure Is this a current diagnosis for this admission?: Yes (6) History of hepatitis C Is this a current diagnosis for this admission?: Yes (7) Right lower quadrant abdominal pain Is this a current diagnosis for this admission?: Yes - Time Time Spent with patient: 15-24 minutes - Plan Summary Plan Summary: We will decreased the clonidine dose to 0.1 mg at bedtime. Discontinue the morning dose of clonidine. Continue other medications for anxiety and bipolar disorder at this time.
[2016-04-20] MEDS: MORPHINE SULFATE 10 MG/ML INJ IV PRN ×3 (12:41→23:33)
[2016-04-20] MEDS ORDERED: CLONIDINE HCL 0.1 MG TABLET PO ONE (16:30)
--- NOTE | 2016-04-20 19:04 | PDOC CONSULTATION ---
Consultation Consult Date: 04/20/16 History of Present Illness Admission Date/PCP: 04/20/16 10:32 History of Present Illness: This is a 40-year-old patient who was admitted on 04/18/2016 with acute onset abdominal pain and nausea. Her initial CAT scan was suggestive of any appendicitis. She continued to have pain in the hospital and a CAT scan was repeated yesterday. This showed a normal appendix but she has a large amount of stool. She has been constipated for months. She received milk of magnesia and two enemas without much results. She is supposed to be having a colonoscopy tomorrow as she has not been drinking her GoLYTELY as instructed. She has only had one bowel movement today. Her CBC and chem 12 have been unremarkable and the lipase was also normal Past Medical History Cardiac Medical History: Reports: None Neurological Medical History: Reports: Seizures GI Medical History: Reports: Hepatitis Psychiatric Medical History: Reports: Bipolar Disorder, Depression, General Anxiety Disorder, Other - History of PTSD Past Surgical History Past Surgical History: Reports: Tonsillectomy, Tubal Ligation Social History Smoking Status: Never Smoker Frequency of Alcohol Use: Occasional Hx Recreational Drug Use: No Drugs: None Hx Prescription Drug Abuse: No - Advance Directive Resuscitation Status: Full Code Family History Family History: Reviewed & Not Pertinent Parental Family History Reviewed: No Children Family History Reviewed: NA Sibling(s) Family History Reviewed.: NA Medication/Allergy Home Medications: Clonazepam [Klonopin 1 mg Tablet] 1 mg PO BID 04/18/16 Clonidine HCl [Catapres 0.1 mg Tablet] 0.1 mg PO QAM 04/18/16 Clonidine HCl [Catapres] 0.2 mg PO QHS 04/18/16 Gabapentin [Neurontin 300 mg Capsule] 300 mg PO TID 04/18/16 Quetiapine Fumarate [Seroquel Xr] 300 mg PO QHS 04/18/16 Allergies/Adverse Reactions: diphenhydramine [From Benadryl] Allergy (Verified 04/18/16 09:26) lithium Allergy (Verified 04/18/16 09:26) Review of Systems All systems: reviewed and no additional remarkable complaints except as stated Physical Exam Vital Signs: Temp Pulse Resp BP Pulse Ox 97.9 F 76 18 135/85 H 100 04/20/16 16:24 04/20/16 16:24 04/20/16 16:24 04/20/16 16:24 04/20/16 16:24 Intake & Output 04/19/16 04/20/16 04/21/16 06:59 06:59 06:59 Intake Total 2710 Output Total 1600 Balance 1110 Exam: General: Patient is alert and looks well. HEENT: There is no pallor or jaundice. PERRLA. Oropharynx normal Respiratory: No chest deformity. No respiratory distress. Chest wall palpitation was unremarkable. Breath sounds were normal Cardiovascular: Heart sounds 1 and 2 normal with no murmurs. Abdominal: Not distended. Soft, obese and nontender. Liver and spleen not palpable. No ascites demonstrated. Bowel sounds active. Rectal examination was deferred. Extremities: No edema Neurological: Alert and oriented x4. Grossly nonfocal. Normal speech Skin: No significant rash Psychological: Normal affect Results Impressions: Limited or Localized CT 04/18/16 11:42 IMPRESSION: No renal or ureteric calculi are identified. A moderate amount a gas and fecal material is identified throughout the colon. The appendix is difficult to delineate. What may represent the appendix is identified in the right lower quadrant which contains air in the lumen but there is some apparent thickening of the [place]. Clinical correlation is recommended. Other findings as noted above Abdomen/Pelvis CT 04/20/16 00:00 IMPRESSION: SIGNIFICANT FECAL RETENTION. OTHERWISE NO SIGNIFICANT OR ACUTE FINDINGS IN THE ABDOMEN OR PELVIS. Assessment & Plan - Diagnosis (1) Constipation Qualifiers: Constipation type: slow transit constipation Qualified Code(s): K59.01 - Slow transit constipation Is this a current diagnosis for this admission?: YesPlan: She has significant constipation which may also explain her abdominal pain. Her CAT scan did not show any acute changes. Advised to finish the GoLYTELY within the next two hours. She may be undergoing a colonoscopy by the surgeon tomorrow. No other GI intervention is required at this time. I will suggest Georgette lax twice a day upon discharge (2) Bipolar disorder Qualifiers: Active/Remission status: remission status unspecified Qualified Code (s): F31.9 - Bipolar disorder, unspecified Is this a current diagnosis for this admission?: Yes (3) History of hepatitis C Is this a current diagnosis for this admission?: Yes (4) Lower abdominal pain Is this a current diagnosis for this admission?: Yes
[2016-04-20] MEDS: HYDRALAZINE HCL INJ/PF 20 MG/1 ML SDV IV PRN (20:27)
[2016-04-20] MEDS: DEXTROSE 5%-LACTATED RINGERS 1,000 ML IV PRN (20:33)
[2016-04-20] MEDS: QUETIAPINE FUMARATE 100 MG TABLET PO SCH (22:50)
[2016-04-21] MEDS: DEXTROSE 5%-LACTATED RINGERS 1,000 ML IV PRN (04:13)
[2016-04-21] MEDS: GABAPENTIN 300 MG CAPSULE PO SCH ×3 (06:58→21:57)
--- NOTE | 2016-04-21 09:07 | PDOC PROGRESS REPORT ---
Subjective Progress Note for:: 04/21/16 Subjective:: Still has pain lower abdomen Physical Exam Vital Signs: Temp Pulse Resp BP Pulse Ox 97.9 F 80 17 119/68 99 04/21/16 03:39 04/21/16 03:39 04/21/16 03:39 04/21/16 03:39 04/21/16 03:39 Intake & Output 04/20/16 04/21/16 04/22/16 06:59 06:59 06:59 Intake Total 5510 Output Total 3604 Balance 1906 GI/Abdominal exam: PRESENT: ascites, diminished bowel sounds - Significant tenderness right lower abdomen., distended, firm, guarding, hernia, hyperactive bowel sounds, hypoactive bowel sounds, mass, Bueno's sign, normal bowel sounds , organolmegaly, rebound, rigid, soft, tenderness, other Results Impressions: Limited or Localized CT 04/18/16 11:42 IMPRESSION: No renal or ureteric calculi are identified. A moderate amount a gas and fecal material is identified throughout the colon. The appendix is difficult to delineate. What may represent the appendix is identified in the right lower quadrant which contains air in the lumen but there is some apparent thickening of the [place]. Clinical correlation is recommended. Other findings as noted above Abdomen/Pelvis CT 04/20/16 00:00 IMPRESSION: SIGNIFICANT FECAL RETENTION. OTHERWISE NO SIGNIFICANT OR ACUTE FINDINGS IN THE ABDOMEN OR PELVIS. Assessment & Plan - Plan Summary Plan Summary: Still has significant tenderness right lower abdomen , colonoscopy on tender abdomen not safe,will plan for diagnostic laparoscopy, possible appendectomy explained to the patinet.
[2016-04-21] MEDS: CLONAZEPAM 1 MG TABLET PO SCH ×2 (09:13→21:57)
[2016-04-21] MEDS: MORPHINE SULFATE 10 MG/ML INJ IV PRN (09:13)
[2016-04-21] MEDS: PANTOPRAZOLE SODIUM 40 MG VIAL IV SCH (09:13)
[2016-04-21] MEDS ORDERED: HYDROMORPHONE HCL INJ/PF 2 MG/ML AMPULE ONE (10:16)
[2016-04-21] MEDS ORDERED: FENTANYL CITRATE INJ/PF 250 MCG/5 ML AMPULE ONE (10:16)
[2016-04-21] MEDS ORDERED: ACETAMINOPHEN 100 ML IV ONE (10:17)
[2016-04-21] MEDS ORDERED: DEXMEDETOMIDINE INJ 80 MCG/20 ML VIAL IV ONE (10:17)
[2016-04-21] MEDS ORDERED: PROPOFOL INJ 200 MG/20 ML VIAL IV ONE (10:17)
[2016-04-21] MEDS ORDERED: MIDAZOLAM 2 MG/2 ML INJ ONE (10:17)
[2016-04-21] MEDS: ERTAPENEM SODIUM 1 GM in NORMAL SALINE 50 ML IV SCH (10:52)
[2016-04-21] MEDS: BUPIVACAINE HCL 0.5%-EPI 1:200000 INJ/PF 30 ML VIAL ONE ×2 (10:57→11:16)
[2016-04-21] MEDS ORDERED: FENTANYL CITRATE INJ/PF 100 MCG/2 ML AMPUL IV PRN ×3 (11:11)
[2016-04-21] MEDS ORDERED: ONDANSETRON HCL INJ/PF 4 MG/2 ML SDV IV PRN (12:13)
--- NOTE | 2016-04-21 12:43 | OPERATIVE REPORT E ---
Operative Report NAME: EZEQUIEL SCHMIDT : 1975 AGE: 40Y DATE OF SURGERY: 04/21/2016 ROOM: 426 PREOPERATIVE DIAGNOSIS: A 40-year-old female patient with preop diagnosis of right lower abdominal pain, continued tenderness, possible appendicitis. The patient was admitted like 2 days ago with abdominal pain with a white count of 15. White count went down but she still remained to be severely tender. She had a repeat CT scan which showed CT scan was read as negative for appendicitis, but this morning she had a continuous severe tenderness concerning for intra-abdominal pathology including tubo-ovarian abscess and appendicitis which may be retrocecal. POSTOPERATIVE DIAGNOSES: 1. Basically she has a redundant colon. 2. Redundant tight colon. 3. The tip of the appendix seemed to be erythematous, inflamed and swollen, possibility of appendicitis. OPERATION: 1. Diagnostic laparoscopy. 2. Appendectomy. SURGEON: CARYN WEAVER M.D. ANESTHESIA: General. BLOOD LOSS: Less than 5 mL. SPECIMEN: Appendix. HISTORY AND INDICATION: As described. DESCRIPTION OF OPERATION: After induction of anesthesia, supine, SCD boots, abdomen cleaned and draped as a sterile field. Initial access 12-mm trocar inserted umbilically and then two 5-mm trocars in the left lower abdomen. Abdominal cavity explored. Basically, laparoscopically, small bowel is normal. Colon basically *------* right colon. Cecum was extremely floppy and redundant. That may explain her severe history of constipation. Appendix was basically tethered to the retrocecal area. Tip of the appendix seemed to be enlarged and mildly erythematous. The appendix was *------*. The mesoappendix was divided between the clips and the diathermy Bovie and then close to the cecum the appendix was resected by using stapler. The cuff was stable and no bleeding. Abdominal cavity area suctioned out. All the trocars removed. All the pneumoperitoneum was evacuated. Closure with 0 Vicryl for the fascia and 3-0 and 4-0 Monocryl for the skin. Patient tolerated the procedure well and was returned to the recovery room in stable condition. DICTATING PHYSICIAN: CARYN WEAVER M.D. [id number] PHY#: [id number] ID: [id number] JOB#: [id number] ACCT: [id number] cc:CARYN WAEVER M.D. >
[2016-04-21] MEDS ORDERED: SUCCINYLCHOLINE CHLORIDE INJ 200 MG/10 ML VIAL ONE (14:26)
[2016-04-21] MEDS ORDERED: NEOSTIGMINE METHYLSULFATE 10 MG/10 ML VIAL ONE (14:26)
[2016-04-21] MEDS ORDERED: ROCURONIUM BROMIDE INJ 50 MG/5 ML VIAL IV ONE (14:26)
[2016-04-21] MEDS ORDERED: LIDOCAINE 2% INJ-PF (20 MG/ML) 10 ML AMPUL ONE (14:26)
[2016-04-21] MEDS ORDERED: GLYCOPYRROLATE INJ 0.4 MG/2 ML VIAL ONE (14:26)
[2016-04-21] MEDS: HYDROMORPHONE HCL INJ/PF 2 MG/ML AMPULE IV PRN ×3 (14:35→23:27)
--- NOTE | 2016-04-21 16:36 | PDOC PROGRESS REPORT ---
Subjective Progress Note for:: 04/21/16 Subjective:: Patient reportedly still tenderness in her right lower quadrant. Evidently the patient went for laparoscopy and eventually underwent appendectomy. Findings on the appendix suggestive of appendicitis. Patient did well. Patient's abdominal pain is better according to her. No nausea or vomiting, nor chills or fever. Tolerating clear liquids well. Physical Exam Vital Signs: Temp Pulse Resp BP Pulse Ox 98.2 F 64 17 146/81 H 99 04/21/16 14:15 04/21/16 14:15 04/21/16 14:15 04/21/16 14:15 04/21/16 14:15 Intake & Output 04/20/16 04/21/16 04/22/16 06:59 06:59 06:59 Intake Total 5510 850 Output Total 3604 155 Balance 1906 695 General appearance: PRESENT: no acute distress, cooperative, obese Head exam: PRESENT: normocephalic Eye exam: PRESENT: EOMI Mouth exam: PRESENT: moist, neck supple Neck exam: ABSENT: JVD Respiratory exam: PRESENT: clear to auscultation annie Cardiovascular exam: PRESENT: RRR. ABSENT: gallop GI/Abdominal exam: PRESENT: hypoactive bowel sounds, soft, tenderness - Mild tenderness on the abdomen on the lower quadrants. Extremities exam: ABSENT: pedal edema Neurological exam: PRESENT: alert, awake, oriented to situation Skin exam: PRESENT: dry, warm. ABSENT: cyanosis Results Impressions: Limited or Localized CT 04/18/16 11:42 IMPRESSION: No renal or ureteric calculi are identified. A moderate amount a gas and fecal material is identified throughout the colon. The appendix is difficult to delineate. What may represent the appendix is identified in the right lower quadrant which contains air in the lumen but there is some apparent thickening of the [place]. Clinical correlation is recommended. Other findings as noted above Abdomen/Pelvis CT 04/20/16 00:00 IMPRESSION: SIGNIFICANT FECAL RETENTION. OTHERWISE NO SIGNIFICANT OR ACUTE FINDINGS IN THE ABDOMEN OR PELVIS. Assessment & Plan - Diagnosis (1) Hypertension Qualifiers: Hypertension type: essential hypertension Qualified Code(s): I10 - Essential (primary) hypertension Is this a current diagnosis for this admission?: Yes (2) PTSD (post-traumatic stress disorder) Is this a current diagnosis for this admission?: Yes (3) Bipolar disorder Qualifiers: Active/Remission status: remission status unspecified Qualified Code (s): F31.9 - Bipolar disorder, unspecified Is this a current diagnosis for this admission?: Yes (4) Borderline personality disorder Is this a current diagnosis for this admission?: Yes (5) Seizure Is this a current diagnosis for this admission?: Yes (6) History of hepatitis C Is this a current diagnosis for this admission?: Yes (7) Right lower quadrant abdominal pain Is this a current diagnosis for this admission?: Yes - Time Time Spent with patient: Less than 15 minutes - Plan Summary Plan Summary: Patient improved. We will continue current medications. Recommendations for discharge is to resume home medications and follow up with primary care physician in one to 2 weeks. We will sign off from her case. Thank you so much for letting us participate in her care.
[2016-04-21] MEDS: POTASSI CL 20 MEQ/D5-1/2NS 1L 1000 ML IV PRN (18:39)
[2016-04-21] MEDS: PROMETHAZINE HCL INJ 25 MG/1 ML VIAL IV PRN (19:35)
[2016-04-21] MEDS: QUETIAPINE FUMARATE 100 MG TABLET PO SCH (21:57)
[2016-04-21] MEDS ORDERED: CLONIDINE HCL 0.1 MG TABLET PO SCH (22:00)
[2016-04-21] MEDS: HYDRALAZINE HCL INJ/PF 20 MG/1 ML SDV IV PRN (23:53)
[2016-04-22] MEDS: PROMETHAZINE HCL INJ 25 MG/1 ML VIAL IV PRN (02:27)
[2016-04-22] MEDS: MORPHINE SULFATE 10 MG/ML INJ IV PRN (03:37)
[2016-04-22] MEDS: ACETAMINOPHEN 325 MG TABLET PO PRN (03:42)
[2016-04-22] MEDS: POTASSI CL 20 MEQ/D5-1/2NS 1L 1000 ML IV PRN (05:23)
[2016-04-22] MEDS: GABAPENTIN 300 MG CAPSULE PO SCH ×2 (05:48→14:39)
[2016-04-22] MEDS: HYDROMORPHONE HCL INJ/PF 2 MG/ML AMPULE IV PRN ×2 (05:48→11:47)
[2016-04-22 07:22] LABS: HEMATOCRIT 36.2 % (36.0-47.0); HEMOGLOBIN 12.4 g/dL (12.0-15.5); MEAN CORPUSCULAR HEMOGLOBIN 30.3 pg (27.0-33.4); MEAN CORPUSCULAR HGB CONC 34.1 g/dL (32.0-36.0); MEAN CORPUSCULAR VOLUME 89 fl (80-97); RED BLOOD COUNT 4.09 10^6/uL (3.72-5.28); RED CELL DISTRIBUTION WIDTH 13.5 % (11.5-14.0); WHITE BLOOD COUNT 10.2 10^3/uL (4.0-10.5)
[2016-04-22 07:47] LABS: ANION GAP 10 (5-19); BLOOD UREA NITROGEN 5 mg/dL (7-20); CALCIUM 8.8 mg/dL (8.4-10.2); CARBON DIOXIDE 26 mmol/L (22-30); CHLORIDE 101 mmol/L (98-107); CREATININE RESULT 0.63 mg/dL (0.52-1.25); GLUCOSE 121 mg/dL (75-110); POTASSIUM 4.2 mmol/L (3.6-5.0); SODIUM 136.5 mmol/L (137-145)
[2016-04-22] MEDS: CLONAZEPAM 1 MG TABLET PO SCH (09:19)
[2016-04-22] MEDS: PANTOPRAZOLE SODIUM 40 MG VIAL IV SCH (09:19)
[2016-04-22] MEDS ORDERED: ENOXAPARIN SODIUM INJ 40 MG/0.4 ML DISP.SYRIN SUBCUT SCH (10:00)
[2016-04-22] MEDS: ERTAPENEM SODIUM 1 GM in NORMAL SALINE 50 ML IV SCH (11:38)
[2016-04-22 13:59] VITALS: BP 186/126
--- NOTE | 2016-04-22 17:03 | DISCHARGE SUMMARY E ---
Discharge Summary NAME: EZEQUIEL SCHMIDT : 1975 AGE: 40Y ADMITTED: 04/20/2016 DISCHARGED: 04/22/2016 ADMITTING DIAGNOSIS: Abdominal pain. HOSPITAL COURSE: The patient was admitted for abdominal pain, and then a CT scan revealed no signs of acute appendicitis, admitted and then revealed there was a lot of constipation. She was given a bowel prep. After the bowel prep, the patient was expected to have a colonoscopy but the patient has continued to have right lower abdominal severe tenderness. *------* performed laparoscopy yesterday which revealed a *------* with some degree of inflammation, but she had a redundant colon explaining constipation. After appendectomy, she was monitored for overnight and this morning she is doing very well with abdomen nontender, tolerating diet, normal labs. She is doing very well. We will discharge her home today with hydrocodone for the pain. FOLLOWUP PLAN: In 1 to 2 weeks in the Surgery Clinic. She will need a colonoscopy completed in the future. The patient was given the same instructions, also strongly encouraged to follow up in the Surgery Office, to call the Surgery Clinic. All the instructions were given, phone numbers given to the patient per the nursing staff. DICTATING PHYSICIAN: CARYN WEAVER M.D. [id number] PHY#: [id number] ID: [id number] JOB#: [id number] ACCT: [id number] cc:CARYN WEAVER M.D. [employer],
== END 2016-04-22 14:38 | disposition home or self-care (01) | DRG 342 ==
LOC: OROUT 09:11 → EH 16:12 → UNDOADMOB 16:12 → EH 16:26 → 4S 16:47 → EH 16:47 → OBSVTOIN 04-20 10:32
PROVIDERS: ATTEND Colon & Rectal Surgery
PROC: 0DTJ4ZZ Resection of Appendix, Percutaneous Endoscopic Approach (ICD-10-PCS; principal; 2016-04-21 10:00)
PROC: 3E0234Z Introduction of Serum, Toxoid and Vaccine into Muscle, Percutaneous Approach (ICD-10-PCS; 2016-04-22)
DX: K59.09 Other constipation (principal); Q43.8 Other specified congenital malformations of intestine; K37 Unspecified appendicitis; F43.10 Post-traumatic stress disorder, unspecified; I10 Essential (primary) hypertension; F41.1 Generalized anxiety disorder; F60.3 Borderline personality disorder; E66.9 Obesity, unspecified; Z98.51 Tubal ligation status; Z87.891 Personal history of nicotine dependence; Z80.9 Family history of malignant neoplasm, unspecified; Z88.8 Allergy status to other drugs, medicaments and biological substances; Z79.899 Other long term (current) drug therapy; Z23 Encounter for immunization; Z86.19 Personal history of other infectious and parasitic diseases; Z68.36 Body mass index [BMI] 36.0-36.9, adult
CPT/HCPCS: 36415; 74177; 76380; 80048; 80053; 81001; 83690; 840; 84703; 85025; 85027; 87086; 88304; 90686; 93005; 93010; 94799; 96361; 96365; 96368; 96372; 96375; 99285; G0378; J0131; J0330; J0360; J0694; J1170; J1335; J1650; J1885; J2250; J2270; J2405; J2550; J2704; J3010; J3480; J3490; J7030; S0119; S0164

== ENCOUNTER 2016-05-31 20:42 | Emergency (ER) | payer SELFPAY ==
[2016-05-31 23:00] LABS: ABSOLUTE BASOPHILS # (AUTO) 0.1 10^3/uL (0.0-0.2); ABSOLUTE LYMPHOCYTES (AUTO) 3.8 10^3/uL (0.5-4.7); BASOPHILS % (AUTO) 0.6 % (0-2); EOSINOPHILS % (AUTO) 0.2 % (0-6); HEMATOCRIT 42.1 % (36.0-47.0); HEMOGLOBIN 13.9 g/dL (12.0-15.5); HGB HCT DIFFERENCE -0.4; LYMPHOCYTES % (AUTO) 23.8 % (13-45); MEAN CORPUSCULAR HGB CONC 32.9 g/dL (32.0-36.0); MEAN CORPUSCULAR VOLUME 88 fl (80-97); MONOCYTES % (AUTO) 6.2 % (3-13); RED BLOOD COUNT 4.78 10^6/uL (3.72-5.28); RED CELL DISTRIBUTION WIDTH 13.4 % (11.5-14.0); SEGMENTED NEUTROPHILS % (AUTO) 69.2 % (42-78)
[2016-05-31 23:09] LABS: APPEARANCE,URINE CLOUDY; BILIRUBIN,URINE SMALL (NEGATIVE); GLUCOSE, URINE NEGATIVE (NEGATIVE); KETONES,URINE TRACE mg/dL (NEGATIVE); LEUKOCYTE ESTERASE,URINE LARGE (NEGATIVE); NITRITE,URINE POSITIVE (NEGATIVE); PROTEIN,URINE >=500 mg/dL (NEGATIVE); URINE SPECIFIC GRAVITY 1.025
[2016-05-31 23:14] LABS: ALANINE AMINOTRANSFERASE 47 U/L (9-52); ALBUMIN 4.9 g/dL (3.5-5.0); ALKALINE PHOSPHATASE 62 U/L (38-126); ANION GAP 17 (5-19); ASPARTATE AMINO TRANSFERASE 39 U/L (14-36); BILIRUBIN,DIRECT 0.3 mg/dL (0.0-0.4); BILIRUBIN,TOTAL 0.7 mg/dL (0.2-1.3); BLOOD UREA NITROGEN 10 mg/dL (7-20); CALCIUM 10.5 mg/dL (8.4-10.2); CARBON DIOXIDE 23 mmol/L (22-30); CHLORIDE 105 mmol/L (98-107); CREATININE RESULT 0.78 mg/dL (0.52-1.25); GLUCOSE 101 mg/dL (75-110); POTASSIUM 3.7 mmol/L (3.6-5.0); SODIUM 145.3 mmol/L (137-145); TOTAL PROTEIN 8.9 g/dL (6.3-8.2)
[2016-06-01] MEDS ORDERED: CEFTRIAXONE 1 GM/D5W RTU 50 ML IV ONE (02:21)
[2016-06-01] MEDS ORDERED: NORMAL SALINE 1000 ML 1,000 ML IV ONE (02:21)
[2016-06-01] MEDS ORDERED: PROMETHAZINE HCL 25 MG TABLET PO ONE (02:23)
--- NOTE | 2016-06-01 02:23 | ER Document Report ---
ED GI/ - General Chief Complaint: Vomiting Stated Complaint: VOMITING BLOOD Notes: Patient is a 41-year-old female that comes emergency department for chief complaint of pain in her mid to lower abdomen and also in her mid to lower back on both sides, symptoms started yesterday, she has painful urination, she states she started to vomit, she states that her most recent episode of vomiting showed some flecks of blood mixed in with brown. She denies fever or chills. She denies vaginal bleeding or discharge. She denies history of kidney stones. TRAVEL OUTSIDE OF THE [place] IN LAST 30 DAYS: No - Related Data Allergies/Adverse Reactions: diphenhydramine [From Benadryl] Allergy (Verified 04/18/16 09:26) lithium Allergy (Verified 04/18/16 09:26) Past Medical History - General Information source: Patient - Social History Smoking Status: Never Smoker Frequency of alcohol use: None Drug Abuse: None Lives with: Family Family History: Reviewed & Not Pertinent Neurological Medical History: Reports: Hx Seizures Renal/ Medical History: Denies: Hx Peritoneal Dialysis GI Medical History: Reports: Hx Hepatitis Psychiatric Medical History: Reports: Hx Anxiety, Hx Bipolar Disorder, Hx Depression Infectious Medical History: Reports: Hx Hepatitis Past Surgical History: Reports: Hx Tonsillectomy, Hx Tubal Ligation - Immunizations Hx Diphtheria, Pertussis, Tetanus Vaccination: Yes Review of Systems - Review of Systems Constitutional: No symptoms reported EENT: No symptoms reported Cardiovascular: No symptoms reported Respiratory: No symptoms reported Gastrointestinal: See HPI Genitourinary: See HPI Female Genitourinary: No symptoms reported Musculoskeletal: No symptoms reported Skin: No symptoms reported Hematologic/Lymphatic: No symptoms reported Neurological/Psychological: No symptoms reported Physical Exam - Vital signs Vitals: Temp Pulse Resp BP Pulse Ox 97.5 F 120 H 18 168/117 H 100 05/31/16 21:37 05/31/16 21:37 05/31/16 21:37 05/31/16 21:37 05/31/16 21:37 Interpretation: Normal - General General appearance: Appears well, Alert In distress: None - Alert and well-appearing - HEENT Head: Normocephalic, Atraumatic Eyes: Normal Pupils: PERRL - Respiratory Respiratory status: No respiratory distress Chest status: Nontender Breath sounds: Normal Chest palpation: Normal - Cardiovascular Rhythm: Regular. No: Tachycardia - Not tachycardic on my exam Heart sounds: Normal auscultation, S1 appreciated, S2 appreciated Murmur: No - Abdominal Inspection: Normal Distension: No distension Bowel sounds: Normal Tenderness: Tender - Tender in the suprapubic area, otherwise completely benign abdomen including epigastric examination. No: Guarding Organomegaly: No organomegaly - Back Back: CVA tenderness - Mild bilateral CVA tenderness, no significant tenderness. No: Vertebra tenderness - Extremities General upper extremity: Normal inspection, Nontender, Normal color, Normal ROM , Normal temperature General lower extremity: Normal inspection, Nontender, Normal color, Normal ROM , Normal temperature, Normal weight bearing. No: Jose's sign - Neurological Neuro grossly intact: Yes Cognition: Normal Orientation: AAOx4 Carol Coma Scale Eye Opening: Spontaneous Carol Coma Scale Verbal: Oriented Durham Coma Scale Motor: Obeys Commands Durham Coma Scale Total: 15 Speech: Normal Motor strength normal: LUE, RUE, LLE, RLE Sensory: Normal - Psychological Associated symptoms: Normal affect, Normal mood - Skin Skin Temperature: Warm Skin Moisture: Dry Skin Color: Normal Course - Re-evaluation Re-evalutation: Leukocytosis at 16,000 with no left shift or bandemia, no fever, patient initially tachycardic but on reexamination this was found to be resolved. Patient has suprapubic tenderness, mild bilateral flank CVA tenderness, no abdominal guarding, she is alert, talkative, well-appearing. Patient has not vomited during her long-standing emergency department. Patient tolerating by mouth. Urine positive for nitrates, large amount of leukocyte esterase and white blood cells, there is some contamination but this is still consistent with developing pyelonephritis. Low suspicion of sepsis patient vital signs and examination. Patient was given Rocephin, pain medication, patient states that she can take Vistaril and requires this whenever she takes pain medication , she requests specifically, she was provided with this on discharge prescription. Ultra placed, follow-up and return precautions discussed in detail, patient states understanding and agreement. - Vital Signs Vital signs: Temp Pulse Resp BP Pulse Ox 98.2 F 96 16 154/112 H 96 06/01/16 05:52 06/01/16 05:55 06/01/16 05:52 06/01/16 05:55 03/23/17 05:52 - Laboratory Result Diagrams: 05/31/16 22:40 05/31/16 22:40 Laboratory results interpreted by me: 05/31/16 05/31/16 05/31/16 22:40 22:40 22:45 WBC 16.0 H Absolute Neutrophils 11.0 H Sodium 145.3 H Calcium 10.5 H AST 39 H Total Protein 8.9 H Urine Protein >=500 H Urine Ketones TRACE H Urine Nitrite POSITIVE H Urine Bilirubin SMALL H Urine Urobilinogen 2.0 H Ur Leukocyte Esterase LARGE H Discharge - Discharge Clinical Impression: Flank pain Urinary tract infection Qualifiers: Urinary tract infection type: site unspecified Hematuria presence: without hematuria Qualified Code(s): N39.0 - Urinary tract infection, site not specified Abdominal pain Qualifiers: Abdominal location: lower abdomen, unspecified Qualified Code(s): R10.30 - Lower abdominal pain, unspecified Vomiting Qualifiers: Vomiting type: unspecified Vomiting Intractability: non-intractable Nausea presence: with nausea Qualified Code(s): R11.2 - Nausea with vomiting, unspecified Condition: Stable Disposition: HOME, SELF-CARE Additional Instructions: Examination and workup are consistent with a urinary tract infection, likely developing kidney infection. Take cipro antibiotics as prescribed, take pain medication if needed (with vistaril for itching if needed), take phenergan for nausea if needed. Follow up with Primary Care. Return to the ED for any concerning or worsening symptoms. Prescriptions: Ciprofloxacin HCl [Cipro 500 mg Tablet] 500 mg PO BID #20 tablet Hydroxyzine Pamoate [Vistaril 25 mg Capsule] 25 mg PO Q6H PRN #20 capsule PRN Reason: Oxycodone HCl/Acetaminophen [Percocet 5-325 mg Tablet] 1 - 2 tab PO Q4H PRN #15 tablet PRN Reason: Promethazine HCl [Phenergan 25 mg Tablet] 1 - 2 tab PO Q6H PRN #15 tablet PRN Reason: Forms: Elevated Blood Pressure, Return to Work
[2016-06-01] MEDS ORDERED: MORPHINE SULFATE 10 MG/ML INJ IV ONE (02:52)
[2016-06-01] MEDS ORDERED: MORPHINE SULFATE 10 MG/ML INJ IM ONE (04:06)
[2016-06-01] MEDS ORDERED: CEFTRIAXONE INJ 1000 MG VIAL IM ONE (04:29)
[2016-06-01] MEDS ORDERED: LIDOCAINE 1% INJ-PF (10 MG/ML) 30 ML SDV INJ ONE (04:29)
[2016-06-01 05:55] VITALS: BP 154/112
== END 2016-06-01 06:18 | disposition home or self-care (01) ==
LOC: ER 20:42
DX: K92.0 Hematemesis (principal); D72.829 Elevated white blood cell count, unspecified; N39.0 Urinary tract infection, site not specified; R00.0 Tachycardia, unspecified; Z88.8 Allergy status to other drugs, medicaments and biological substances
CPT/HCPCS: 99284; 96372; 96365; 36415; 87086; 85025; 81025; 87088; 80053; 81001; 87186; J2270; J0696; J7030

== ENCOUNTER 2016-06-25 12:34 | Emergency (ER) | payer SELFPAY ==
--- NOTE | 2016-06-25 13:00 | ER Document Report ---
ED Medical Screen (RME) - General Chief Complaint: Abdominal Pain Stated Complaint: ABDOMINAL PAIN Notes: Patient says that she's been experiencing pain in her left upper, lateral abdomen for a couple of days. She says it was so painful last night that she was "screaming". Patient says that the pain is worsened when she urinates, when she lays down, when she tries to walk. She vomited 4 times during these couple of days, and says there was a small amount of blood in each of the episodes of vomiting. No blood in her stools. Her last bowel movement was 2 days ago. She's not aware of any fever, but has had some chills and sweats. Patient had her appendix removed about a month and a half ago. She was in the hospital for 6 days after that because she continued to have such abdominal pain. Status post BTL, TNA. Bipolar disorder. TRAVEL OUTSIDE OF THE [place] IN LAST 30 DAYS: No - Related Data Allergies/Adverse Reactions: diphenhydramine [From Benadryl] Allergy (Verified 04/18/16 09:26) lithium Allergy (Verified 04/18/16 09:26) Past Medical History Neurological Medical History: Reports: Hx Seizures Renal/ Medical History: Denies: Hx Peritoneal Dialysis GI Medical History: Reports: Hx Hepatitis Psychiatric Medical History: Reports: Hx Anxiety, Hx Bipolar Disorder, Hx Depression Infectious Medical History: Reports: Hx Hepatitis Past Surgical History: Reports: Hx Tonsillectomy, Hx Tubal Ligation - Immunizations Hx Diphtheria, Pertussis, Tetanus Vaccination: Yes Physical Exam - Vital signs Vitals: Temp Pulse Resp BP Pulse Ox 98.3 F 120 H 16 142/108 H 95 06/25/16 12:38 06/25/16 12:38 06/25/16 12:38 06/25/16 12:38 06/25/16 12:38 Course - Vital Signs Vital signs: Temp Pulse Resp BP Pulse Ox 98.3 F 120 H 16 142/108 H 95 06/25/16 12:38 06/25/16 12:38 06/25/16 12:38 06/25/16 12:38 06/25/16 12:38
[2016-06-25 13:46] LABS: ABSOLUTE LYMPHOCYTES (AUTO) 2.9 10^3/uL (0.5-4.7); ABSOLUTE MONOCYTES (AUTO) 0.6 10^3/uL (0.1-1.4); ABSOLUTE NEUT (AUTO) 6.8 10^3/uL (1.7-8.2); BASOPHILS % (AUTO) 0.3 % (0-2); EOSINOPHILS % (AUTO) 0.2 % (0-6); HEMOGLOBIN 14.6 g/dL (12.0-15.5); HGB HCT DIFFERENCE 1.8; LYMPHOCYTES % (AUTO) 27.7 % (13-45); MEAN CORPUSCULAR HEMOGLOBIN 30.5 pg (27.0-33.4); MEAN CORPUSCULAR HGB CONC 34.6 g/dL (32.0-36.0); MEAN CORPUSCULAR VOLUME 88 fl (80-97); MONOCYTES % (AUTO) 5.7 % (3-13); RED BLOOD COUNT 4.78 10^6/uL (3.72-5.28); RED CELL DISTRIBUTION WIDTH 13.6 % (11.5-14.0); SEGMENTED NEUTROPHILS % (AUTO) 66.1 % (42-78); WHITE BLOOD COUNT 10.4 10^3/uL (4.0-10.5)
[2016-06-25] MEDS ORDERED: ONDANSETRON 4 MG TAB.RAPDIS PO ONE (13:50)
[2016-06-25] MEDS ORDERED: KETOROLAC TROMETHAMINE 60 MG/2 ML SDV IM ONE (13:50)
--- NOTE | 2016-06-25 13:56 | ER Document Report ---
ED General - General Chief Complaint: Abdominal Pain Stated Complaint: ABDOMINAL PAIN Mode of Arrival: Ambulatory Information source: Patient Notes: 41 yr old female with recent uti, on cipro which improved but worsened over the past few days. admits ot vomtiing with bloody streks, denies any dark stools. admits to pelvic pressure TRAVEL OUTSIDE OF THE [place] IN LAST 30 DAYS: No - HPI Onset: Other - 2 week duration Onset/Duration: Waxing and waning Quality of pain: Pressure Severity: Mild Pain Level: 1 Associated symptoms: Nausea, Vomiting Exacerbated by: Other - urination Relieved by: Denies Similar symptoms previously: Yes Recently seen / treated by doctor: Yes - Related Data Allergies/Adverse Reactions: diphenhydramine [From Benadryl] Allergy (Verified 04/18/16 09:26) lithium Allergy (Verified 04/18/16 09:26) Past Medical History - Social History Smoking Status: Current Every Day Smoker Cigarette use (# per day): Yes Chew tobacco use (# tins/day): No Smoking Education Provided: No Family History: Reviewed & Not Pertinent Patient has suicidal ideation: No Patient has homicidal ideation: No Neurological Medical History: Reports: Hx Seizures Renal/ Medical History: Denies: Hx Peritoneal Dialysis GI Medical History: Reports: Hx Hepatitis Psychiatric Medical History: Reports: Hx Anxiety, Hx Bipolar Disorder, Hx Depression Infectious Medical History: Reports: Hx Hepatitis Past Surgical History: Reports: Hx Tonsillectomy, Hx Tubal Ligation - Immunizations Hx Diphtheria, Pertussis, Tetanus Vaccination: Yes Review of Systems - Review of Systems Notes: REVIEW OF SYSTEMS: CONSTITUTIONAL : Denies fever, chills, or sweats. Denies recent illness. EENT: Denies eye, ear, throat, or mouth pain or symptoms. Denies nasal or sinus congestion or discharge. Denies throat, tongue, or mouth swelling or difficulty swallowing. CARDIOVASCULAR: Denies chest pain. Denies palpitations or racing or irregular heart beat. Denies ankle edema. RESPIRATORY: Denies cough, cold, or chest congestion. Denies shortness of breath, difficulty breathing, or wheezing. GASTROINTESTINAL: Admits to nausea vomiting blood-streaked suprapubic pain GENITOURINARY: Admits to burning on urination FEMALE GENITOURINARY: Denies vaginal bleeding, heavy or abnormal periods, irregular periods. Denies vaginal discharge or odor. MUSCULOSKELETAL: Denies back or neck pain or stiffness. Denies joint pain or swelling. SKIN: Denies rash, lesions or sores. HEMATOLOGIC : Denies easy bruising or bleeding. LYMPHATIC: Denies swollen, enlarged glands. NEUROLOGICAL: Denies confusion or altered mental status. Denies passing out or loss of consciousness. Denies dizziness or lightheadedness. Denies headache. Denies weakness or paralysis or loss of use of either side. Denies problems with gait or speech. Denies sensory loss, numbness, or tingling. Denies seizures. PSYCHIATRIC: Denies anxiety or stress. Denies depression, suicidal ideation, or homicidal ideation. ALL OTHER SYSTEMS REVIEWED AND NEGATIVE. Dictation was performed using [employer] voice recognition software PHYSICAL EXAMINATION: GENERAL: Well-appearing, well-nourished and in no acute distress. HEAD: Atraumatic, normocephalic. EYES: Pupils equal round and reactive to light, extraocular movements intact, conjunctiva are normal. ENT: Nares patent, oropharynx clear without exudates. Moist mucous membranes. NECK: Normal range of motion, supple without lymphadenopathy LUNGS: Breath sounds clear to auscultation bilaterally and equal. No wheezes rales or rhonchi. HEART: Initially tachycardic on arrival ABDOMEN: Suprapubic tenderness Female : deferred Musculoskeletal: Normal range of motion, no pitting or edema. No cyanosis. NEUROLOGICAL: Cranial nerves grossly intact. Normal speech, normal gait. Normal sensory, motor exams PSYCH: Normal mood, normal affect. SKIN: Warm, Dry, normal turgor, no rashes or lesions noted. Physical Exam - Vital signs Vitals: Temp Pulse Resp BP Pulse Ox 98.3 F 120 H 16 142/108 H 95 06/25/16 12:38 06/25/16 12:38 06/25/16 12:38 06/25/16 12:38 06/25/16 12:38 Course - Re-evaluation Re-evalutation: 06/25/16 13:57 Lab work is pending at this time I do not expect any life-threatening issues however patient has been a UTI which was treated with Cipro which is probably resistant to if she still has urinary tract infection 06/25/16 14:58 Urinalysis does note significant improvement however small infection is still noted. I will change her antibiotic and culture her urine Otherwise hemoglobin stable patient stable for discharge After performing a Medical Screening Examination, I estimate there is LOW risk for ACUTE APPENDICITIS, BOWEL OBSTRUCTION, ACUTE CHOLECYSTITIS, PERFORATED DIVERTICULITIS, INCARCERATED HERNIA, PANCREATITIS, PELVIC INFLAMMATORY DISEASE, PERFORATED ULCER, ECTOPIC , or TUBO-OVARIAN ABSCESS, thus I consider the discharge disposition reasonable. Also, there is no evidence or peritonitis , sepsis, or toxicity. I have reevaluated this patient multiple times and no significant life threatening changes are noted. The patient and I have discussed the diagnosis and risks, and we agree with discharging home with close follow-up with the understanding that symptoms and presentations can change. We also discussed returning to the Emergency Department immediately if new or worsening symptoms occur. We have discussed the symptoms which are most concerning (e.g., bloody stool, fever, changing or worsening pain, vomiting) that necessitate immediate return. - Vital Signs Vital signs: Temp Pulse Resp BP Pulse Ox 98.3 F 120 H 16 142/108 H 95 06/25/16 12:38 06/25/16 12:38 06/25/16 12:38 06/25/16 12:38 06/25/16 12:38 - Laboratory Result Diagrams: 06/25/16 13:35 06/25/16 13:35 Laboratory results interpreted by me: 06/25/16 06/25/16 13:35 13:35 Sodium 146.0 H Glucose 117 H Total Protein 8.5 H Urine Protein 100 H Urine Ketones TRACE H Ur Leukocyte Esterase SMALL H Discharge - Discharge Clinical Impression: UTI (urinary tract infection) Qualifiers: Urinary tract infection type: site unspecified Hematuria presence: without hematuria Qualified Code(s): N39.0 - Urinary tract infection, site not specified Abdominal pain Qualifiers: Abdominal location: unspecified location Qualified Code(s): R10.9 - Unspecified abdominal pain Condition: Stable Disposition: HOME, SELF-CARE Instructions: Abdominal Pain ([facility]), Urinary Tract Infection ([facility]) Additional Instructions: Follow up with your physician tomorrow for further care or return to the ED IMMEDIATELY if symptoms worsen or new concerns occur. If you cannot afford to follow up with your primary care physician a list of low cost clinics have been provided at the end of your discharge papers as well. Prescriptions: Sulfamethoxazole/Trimethoprim [Bactrim Ds Tablet] 1 each PO BID #14 tablet
[2016-06-25 13:57] LABS: ALANINE AMINOTRANSFERASE 33 U/L (9-52); ALBUMIN 4.6 g/dL (3.5-5.0); ALKALINE PHOSPHATASE 74 U/L (38-126); ANION GAP 15 (5-19); ASPARTATE AMINO TRANSFERASE 28 U/L (14-36); BILIRUBIN,DIRECT 0.3 mg/dL (0.0-0.4); BILIRUBIN,TOTAL 0.7 mg/dL (0.2-1.3); BLOOD UREA NITROGEN 11 mg/dL (7-20); CALCIUM 9.9 mg/dL (8.4-10.2); CARBON DIOXIDE 30 mmol/L (22-30); CHLORIDE 101 mmol/L (98-107); CREATININE RESULT 0.77 mg/dL (0.52-1.25); GLUCOSE 117 mg/dL (75-110); LIPASE 42.1 U/L (23-300); POTASSIUM 3.7 mmol/L (3.6-5.0); TOTAL PROTEIN 8.5 g/dL (6.3-8.2)
[2016-06-25 14:04] LABS: APPEARANCE,URINE CLOUDY; BILIRUBIN,URINE NEGATIVE (NEGATIVE); GLUCOSE, URINE NEGATIVE (NEGATIVE); KETONES,URINE TRACE mg/dL (NEGATIVE); LEUKOCYTE ESTERASE,URINE SMALL (NEGATIVE); NITRITE,URINE NEGATIVE (NEGATIVE); PROTEIN,URINE 100 mg/dL (NEGATIVE); URINE SPECIFIC GRAVITY 1.034; UROBILINOGEN,URINE NEGATIVE mg/dL (<2.0)
[2016-06-25 16:00] VITALS: BP 149/74
== END 2016-06-25 15:30 | disposition home or self-care (01) ==
LOC: ER 12:34
DX: R10.9 Unspecified abdominal pain (principal); R11.2 Nausea with vomiting, unspecified; R00.0 Tachycardia, unspecified; F17.210 Nicotine dependence, cigarettes, uncomplicated; Z88.8 Allergy status to other drugs, medicaments and biological substances; Z98.51 Tubal ligation status
CPT/HCPCS: 99283; 96372; 36415; 83690; 84703; 85025; 80053; 81001; J1885; S0119

== ENCOUNTER 2016-08-26 22:55 | Emergency (ER) | payer SELFPAY ==
[2016-08-26] MEDS ORDERED: NORMAL SALINE 1000 ML 1,000 ML IV ONE (23:10)
--- NOTE | 2016-08-26 23:16 | ER Document Report ---
ED General - General Chief Complaint: Overdose Stated Complaint: OVERDOSE Time Seen by Provider: 08/26/16 23:08 Mode of Arrival: Medic Information source: Patient TRAVEL OUTSIDE OF THE [place] IN LAST 30 DAYS: No - HPI Notes: Patient is a 41-year-old female history of bipolar disorder and depression and hepatitis C presents emergency department with report that at 2151 she took an overdose in a attempt to try to cure her right lower toothache pain and to hurt herself by taking clonidine 0.3 mg x 20 tablets and Klonopin 1 mg tablets 20, as well as her usual evening dose of Seroquel. Patient usually takes clonidine 0.3 mg twice a day and Klonopin 1 mg twice a day and Neurontin and Seroquel. Patient denies any other overdose. Patient reports no chest pain or difficulty breathing. EMS reported heart rate ranging between 42 and 48 with a blood pressure lowest of 87/72. Patient does admit to feeling somewhat sleepy. - Related Data Allergies/Adverse Reactions: diphenhydramine [From Benadryl] Allergy (Verified 04/18/16 09:26) lithium Allergy (Verified 04/18/16 09:26) Past Medical History - General Information source: Patient - Social History Smoking Status: Unknown if Ever Smoked Frequency of alcohol use: None Drug Abuse: None Lives with: Friend Family History: Reviewed & Not Pertinent Neurological Medical History: Reports: Hx Seizures Renal/ Medical History: Denies: Hx Peritoneal Dialysis GI Medical History: Reports: Hx Hepatitis Psychiatric Medical History: Reports: Hx Anxiety, Hx Bipolar Disorder, Hx Depression Infectious Medical History: Reports: Hx Hepatitis Past Surgical History: Reports: Hx Tonsillectomy, Hx Tubal Ligation - Immunizations Hx Diphtheria, Pertussis, Tetanus Vaccination: Yes Review of Systems - Review of Systems Notes: REVIEW OF SYSTEMS: CONSTITUTIONAL : Denies fever, chills, or sweats. Denies recent illness. EENT: Denies eye, ear, throat pain or symptoms. Denies nasal or sinus congestion or discharge. Denies throat, tongue, or mouth swelling or difficulty swallowing. CARDIOVASCULAR: Denies chest pain. Denies palpitations or racing or irregular heart beat. Denies ankle edema. RESPIRATORY: Denies cough, cold, or chest congestion. Denies shortness of breath, difficulty breathing, or wheezing. GASTROINTESTINAL: Denies abdominal pain or distention. Denies nausea, vomiting , or diarrhea. Denies blood in vomitus, stools, or per rectum. Denies black, tarry stools. Denies constipation. GENITOURINARY: Denies difficulty urinating, painful urination, burning, frequency, blood in urine, or discharge. FEMALE GENITOURINARY: Denies vaginal bleeding, heavy or abnormal periods, irregular periods. Denies vaginal discharge or odor. MUSCULOSKELETAL: Denies back or neck pain or stiffness. Denies joint pain or swelling. SKIN: Denies rash, lesions or sores. HEMATOLOGIC : Denies easy bruising or bleeding. LYMPHATIC: Denies swollen, enlarged glands. NEUROLOGICAL: Denies altered mental status. Denies passing out or loss of consciousness. Denies headache. Denies paralysis or loss of use of either side. Denies problems with gait or speech. Denies sensory loss, numbness, or tingling. Denies seizures. Patient reports feeling somewhat lightheaded and somnolent. PSYCHIATRIC: Denies anxiety or stress. Denies homicidal ideation. Patient does admit to suicidal ideation. ALL OTHER SYSTEMS REVIEWED AND NEGATIVE. Dictation was performed using [email or web address] voice recognition software Physical Exam - Vital signs Vitals: Temp Resp Pulse Ox 98.7 F 15 98 08/26/16 23:02 08/26/16 23:02 08/26/16 23:02 - Notes Notes: PHYSICAL EXAMINATION: GENERAL: Well-appearing, well-nourished and in no acute distress. Texting on her phone. HEAD: Atraumatic, normocephalic. EYES: Pupils equal round and reactive to light, extraocular movements intact, conjunctiva are normal. ENT: Nares patent, oropharynx clear without exudates. Moist mucous membranes. Caries noted with worse along tooth #17. No evidence for abscess. Posterior pharynx is clear. NECK: Normal range of motion, supple without lymphadenopathy LUNGS: Breath sounds clear to auscultation bilaterally and equal. No wheezes rales or rhonchi. HEART: Bradycardic rate of 42 without appreciable murmur gallop or rubs. ABDOMEN: Soft, nontender, nondistended abdomen. No guarding, no rebound. No masses appreciated. Female : deferred Musculoskeletal: Normal range of motion, no pitting or edema. No cyanosis. NEUROLOGICAL: Cranial nerves grossly intact. Somewhat slurred speech. Normal sensory, motor exams. PSYCH: Flat affect. Patient admits to suicidal ideation. Denies any homicidal ideation. SKIN: Warm, Dry, normal turgor, no rashes or lesions noted. Course - Re-evaluation Re-evalutation: 08/26/16 23:21 Patient presented outside the window for charcoal to be administered. Normal saline bolus was given. 08/26/16 23:33 Discussion was undertaken with poison control related to the overdose, and they stated watch for hypoxia, hypotension, PADDER depression and bradycardia. Observation time 6-12 hours or until symptoms resolve. As needed, patient can have atropine and dopamine as well as stimulation and IV fluids. Patient given penicillin for toothache and dental caries. 08/27/16 02:40 Patient was noted to have a urinary tract infection on exam. Urine culture was taken. Patient will be started on Keflex and the penicillin will be discontinued. Blood pressure is [id number] systolic and pulse rate is 42. Patient is requesting medications for pain. Patient will be given Tylenol as needed. 08/27/16 05:06 Patient's pulse rate would go to 39 when she was sleeping, but when she was aroused her pulse rate will go up to 53. Blood pressure remained stable and oxygen saturations were stable. Patient was easily aroused with minor stimulation from sleeping. Psychiatric consultation ordered on the patient for the morning. - Vital Signs Vital signs: Temp Pulse Resp BP Pulse Ox 98.7 F 18 155/80 H 98 08/26/16 23:02 08/27/16 05:01 08/27/16 05:01 08/27/16 05:01 - Laboratory Result Diagrams: 08/26/16 23:20 08/26/16 23:20 Laboratory results interpreted by me: 08/26/16 08/27/16 23:20 00:17 Glucose 128 H Urine Protein 30 H Urine Nitrite POSITIVE H Urine Urobilinogen 2.0 H Ur Leukocyte Esterase LARGE H Acetaminophen < 10 L - EKG Interpretation by Me EKG shows normal: Sinus rhythm Rate: Bradycardia Additional EKG results interpreted by me: 08/26/16 23:50 EKG as interpreted by me showed sinus bradycardia heart rate of 41 with out evidence for acute KS or ischemia. There was no old EKG available for comparison. No other acute abnormality noted. Critical Care Note - Critical Care Note Total time excluding time spent on procedures (mins): 47 Discharge - Discharge Clinical Impression: Toothache, Dental caries, Cocaine abuse, Urinary tract bacterial infections, Bradycardia Overdose Qualifiers: Encounter type: initial encounter Injury intent: intentional self-harm Qualified Code(s): T50.902A - Poisoning by unspecified drugs, medicaments and biological substances, intentional self-harm, initial encounter Depression Qualifiers: Depression Type: unspecified Qualified Code(s): F32.9 - Major depressive disorder, single episode, unspecified
[2016-08-26 23:32] LABS: ABSOLUTE BASOPHILS # (AUTO) 0.1 10^3/uL (0.0-0.2); ABSOLUTE EOSINOPHILS # (AUTO) 0.1 10^3/uL (0.0-0.6); ABSOLUTE LYMPHOCYTES (AUTO) 3.6 10^3/uL (0.5-4.7); ABSOLUTE MONOCYTES (AUTO) 0.8 10^3/uL (0.1-1.4); ABSOLUTE NEUT (AUTO) 5.5 10^3/uL (1.7-8.2); BASOPHILS % (AUTO) 0.9 % (0-2); EOSINOPHILS % (AUTO) 0.6 % (0-6); HEMATOCRIT 41.5 % (36.0-47.0); HEMOGLOBIN 13.6 g/dL (12.0-15.5); HGB HCT DIFFERENCE -0.7; LYMPHOCYTES % (AUTO) 36.3 % (13-45); MEAN CORPUSCULAR HGB CONC 32.8 g/dL (32.0-36.0); MEAN CORPUSCULAR VOLUME 89 fl (80-97); MONOCYTES % (AUTO) 7.5 % (3-13); RED BLOOD COUNT 4.69 10^6/uL (3.72-5.28); RED CELL DISTRIBUTION WIDTH 13.5 % (11.5-14.0); SEGMENTED NEUTROPHILS % (AUTO) 54.7 % (42-78)
[2016-08-26 23:45] LABS: ALANINE AMINOTRANSFERASE 37 U/L (9-52); ALBUMIN 3.9 g/dL (3.5-5.0); ALKALINE PHOSPHATASE 66 U/L (38-126); ANION GAP 14 (5-19); ASPARTATE AMINO TRANSFERASE 28 U/L (14-36); BILIRUBIN,DIRECT 0.4 mg/dL (0.0-0.4); BILIRUBIN,TOTAL 0.5 mg/dL (0.2-1.3); BLOOD UREA NITROGEN 13 mg/dL (7-20); CALCIUM 9.1 mg/dL (8.4-10.2); CARBON DIOXIDE 24 mmol/L (22-30); CHLORIDE 103 mmol/L (98-107); CREATININE RESULT 0.82 mg/dL (0.52-1.25); GLUCOSE 128 mg/dL (75-110); MAGNESIUM 1.8 mg/dL (1.6-2.3); POTASSIUM 3.9 mmol/L (3.6-5.0); SODIUM 140.5 mmol/L (137-145); TOTAL PROTEIN 7.8 g/dL (6.3-8.2)
[2016-08-26] MEDS ORDERED: PENICILLIN V POTASSIUM 500 MG TABLET PO SCH (23:45)
[2016-08-26 23:46] LABS: ALCOHOL < 10 mg/dL (NONE DETECTED)
[2016-08-27 00:15] LABS: THYROID STIMULATING HORMONE 3.53 uIU/mL (0.47-4.68)
[2016-08-27] MEDS ORDERED: PENICILLIN V POTASSIUM 500 MG TABLET PO ONE (00:15)
[2016-08-27 00:47] LABS: URINE BARBITURATES SCREEN NEGATIVE; URINE METHADONE SCREEN NEGATIVE; URINE OPIATES LOW NEGATIVE; URINE PHENCYCLIDINE SCREEN NEGATIVE
[2016-08-27 02:21] LABS: AMORPHOUS SEDIMENT,URINE TRACE /HPF; APPEARANCE,URINE CLOUDY; BILIRUBIN,URINE NEGATIVE (NEGATIVE); GLUCOSE, URINE NEGATIVE (NEGATIVE); KETONES,URINE NEGATIVE (NEGATIVE); LEUKOCYTE ESTERASE,URINE LARGE (NEGATIVE); NITRITE,URINE POSITIVE (NEGATIVE); PROTEIN,URINE 30 mg/dL (NEGATIVE)
[2016-08-27] MEDS ORDERED: ACETAMINOPHEN 325 MG TABLET PO PRN (02:42)
[2016-08-27] MEDS ORDERED: CEPHALEXIN 500 MG CAPSULE PO SCH (06:00)
[2016-08-27] MEDS ORDERED: TRAMADOL HCL 50 MG TABLET PO ONE (06:39)
--- NOTE | 2016-08-27 10:27 | ER Document Report ---
Doctor's Note Notes: 08/27/16 10:26 Patient resting comfortably on stretcher, chart was reviewed including labs and vital signs which remained stable, she does appear to have a urinary tract infection, and is complaining of dental pain, stating that is why she took so many pills yesterday evening in an effort to decrease the pain, he does appear to have dental infection tooth #18, she will be started on antibiotics for this and provided with Motrin 600 mg 3 times daily otherwise she will remain in the emergency room until she is cleared for transfer or discharge by mental health team
[2016-08-27] MEDS ORDERED: IBUPROFEN 600 MG TABLET PO SCH ×2 (10:30→14:00)
[2016-08-27] MEDS ORDERED: AMOXICILLIN TR/POT CLAVULANATE 500-125 MG TAB PO SCH ×2 (10:30→22:00)
[2016-08-27] MEDS ORDERED: AMOXICILLIN TR/POT CLAVULANATE 500-125 MG TAB PO ONE (11:15)
[2016-08-27] MEDS ORDERED: IBUPROFEN 600 MG TABLET PO ONE (11:15)
--- NOTE | 2016-08-27 13:00 | EKG REPORT ---
SEVERITY:- OTHERWISE NORMAL ECG - SINUS BRADYCARDIA : Confirmed by: Bharati Camara MD 27-Aug-2016 12:59:51
--- NOTE | 2016-08-27 15:42 | ER Document Report ---
ED Psych Disorder / Suicide - General Chief Complaint: Overdose Stated Complaint: OVERDOSE Time Seen by Provider: 08/26/16 23:08 Mode of Arrival: Medic Information source: Patient, Friend TRAVEL OUTSIDE OF THE [place] IN LAST 30 DAYS: No - HPI Patient complains to provider of: Other - tooth cuasing tongue pain Onset: Other Onset was: Gradual Suicide Risk Factors: Bipolar, Substance abuse Situational problems related to: Other - no insurance lack of medical care Suicide Attempt Method: Overdose - though maintains she was taking medication anf using cocaine to get rid of the pain Overdose of: Benzodiazepine, Other - BP medication Clonidine Normal mood: Yes Associated symptoms: Other - lethargic Similar symptoms previously: No Recently seen / treated by doctor: No Notes: Patient is a 41 year old female who presented to the ED late last evening for an intentional OD of Klonopin and Clonidine. ED physician petitioned for IVC. - Related Data Allergies/Adverse Reactions: diphenhydramine [From Benadryl] Allergy (Verified 04/18/16 09:26) lithium Allergy (Verified 04/18/16 09:26) Past Medical History - General Information source: Patient - Social History Smoking Status: Unknown if Ever Smoked Frequency of alcohol use: None Drug Abuse: None Lives with: Friend Family History: Reviewed & Not Pertinent Neurological Medical History: Reports: Hx Seizures Renal/ Medical History: Denies: Hx Peritoneal Dialysis GI Medical History: Reports: Hx Hepatitis Psychiatric Medical History: Reports: Hx Anxiety, Hx Bipolar Disorder, Hx Depression Infectious Medical History: Reports: Hx Hepatitis Past Surgical History: Reports: Hx Appendectomy, Hx Tonsillectomy, Hx Tubal Ligation - Immunizations Hx Diphtheria, Pertussis, Tetanus Vaccination: Yes Physical Exam - Vital signs Vitals: Temp Resp Pulse Ox 98.7 F 15 98 08/26/16 23:02 08/26/16 23:02 08/26/16 23:02 Course - Vital Signs Vital signs: Temp Pulse Resp BP Pulse Ox 97.9 F 18 148/72 H 99 08/27/16 06:06 08/27/16 14:11 08/27/16 14:11 08/27/16 14:11 - Laboratory Result Diagrams: 08/26/16 23:20 08/26/16 23:20 Laboratory results interpreted by me: 08/26/16 08/27/16 23:20 00:17 Glucose 128 H Urine Protein 30 H Urine Nitrite POSITIVE H Urine Urobilinogen 2.0 H Ur Leukocyte Esterase LARGE H Acetaminophen < 10 L Discharge - Discharge Clinical Impression: Toothache, Dental caries, Cocaine abuse, Urinary tract bacterial infections, Bradycardia Overdose Qualifiers: Encounter type: initial encounter Injury intent: intentional self-harm Qualified Code(s): T50.902A - Poisoning by unspecified drugs, medicaments and biological substances, intentional self-harm, initial encounter Depression Qualifiers: Depression Type: unspecified Qualified Code(s): F32.9 - Major depressive disorder, single episode, unspecified Bipolar disorder Qualifiers: Active/Remission status: remission status unspecified Qualified Code(s): F31.9 - Bipolar disorder, unspecified Disposition: HOME, SELF-CARE Instructions: [facility] Additional Instructions: Overdose You have taken more medication than you should have. After your evaluation and care, it is felt that your overdose is not likely to be harmful or of any significant consequences to you and you are being discharged. In the future, you should be careful not to take more medications than what is prescribed for you. Although your overdose does not seem to be of any danger to you at this time, if you develop any unusual or unexpected symptoms after your discharge, you should return to the Emergency Department immediately for re-evaluation. You should follow-up with [facility] as a walk in fist thing tomorrow ( 08/28/2016) morning. Referrals: [facility] [Provider Group] - Follow up tomorrow (As walk in)
[2016-08-27 16:10] VITALS: BP 117/82
== END 2016-08-27 16:34 | disposition home or self-care (01) ==
LOC: ER 22:55
DX: T50.902A Poisoning by unspecified drugs, medicaments and biological substances, intentional self-harm, initial encounter (principal); F32.9 Major depressive disorder, single episode, unspecified; F14.99 Cocaine use, unspecified with unspecified cocaine-induced disorder; F31.9 Bipolar disorder, unspecified
CPT/HCPCS: 93005; 99291; 36415; 87086; 84439; 80307 ×3; 83735; 84443; 85025; 81025; 80053; 81001; 93010; J7030

== ENCOUNTER 2016-10-14 19:36 | Emergency (ER) | payer SELFPAY ==
[2016-10-14] MEDS ORDERED: NALOXONE HCL INJ/PF 0.4 MG/1 ML SDV IV ONE (20:25)
[2016-10-14] MEDS ORDERED: NALOXONE HCL INJ/PF 0.4 MG/1 ML SDV ONE ×2 (20:27→22:12)
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
[2016-10-14 20:36] LABS: ALANINE AMINOTRANSFERASE 50 U/L (9-52); ALBUMIN 4.4 g/dL (3.5-5.0); ALKALINE PHOSPHATASE 54 U/L (38-126); ANION GAP 14 (5-19); ASPARTATE AMINO TRANSFERASE 45 U/L (14-36); BILIRUBIN,DIRECT 0.4 mg/dL (0.0-0.4); BILIRUBIN,TOTAL 0.6 mg/dL (0.2-1.3); BLOOD UREA NITROGEN 12 mg/dL (7-20); CALCIUM 9.2 mg/dL (8.4-10.2); CARBON DIOXIDE 26 mmol/L (22-30); CHLORIDE 102 mmol/L (98-107); CREATININE RESULT 0.96 mg/dL (0.52-1.25); GLUCOSE 142 mg/dL (75-110); POTASSIUM 3.8 mmol/L (3.6-5.0); SODIUM 141.9 mmol/L (137-145); TOTAL PROTEIN 8.2 g/dL (6.3-8.2)
[2016-10-14 20:38] LABS: ALCOHOL < 10 mg/dL (NONE DETECTED)
[2016-10-14 21:09] LABS: URINE BARBITURATES SCREEN NEGATIVE; URINE METHADONE SCREEN NEGATIVE; URINE OPIATES LOW NEGATIVE; URINE PHENCYCLIDINE SCREEN NEGATIVE
[2016-10-14] MEDS ORDERED: NORMAL SALINE 1000 ML 1,000 ML IV ONE (22:11)
--- NOTE | 2016-10-14 23:41 | EKG REPORT ---
SEVERITY:- OTHERWISE NORMAL ECG - SINUS BRADYCARDIA : Confirmed by: Celso White MD 14-Oct-2016 23:40:54
[2016-10-15] MEDS ORDERED: NORMAL SALINE 1000 ML 1,000 ML IV ONE (00:57)
[2016-10-15] MEDS ORDERED: NALOXONE HCL INJ/PF 0.4 MG/1 ML SDV IV ONE (08:10)
[2016-10-15] MEDS ORDERED: LEVOFLOXACIN 500 MG/D5W RTU 100 ML IV ONE (08:12)
[2016-10-15 09:10] LABS: ABSOLUTE LYMPHOCYTES (AUTO) 3.6 10^3/uL (0.5-4.7); ABSOLUTE MONOCYTES (AUTO) 1.1 10^3/uL (0.1-1.4); ABSOLUTE NEUT (AUTO) 11.7 10^3/uL (1.7-8.2); BASOPHILS % (AUTO) 0.3 % (0-2); EOSINOPHILS % (AUTO) 0.1 % (0-6); HEMATOCRIT 41.5 % (36.0-47.0); HEMOGLOBIN 13.6 g/dL (12.0-15.5); HGB HCT DIFFERENCE -0.7; MEAN CORPUSCULAR HEMOGLOBIN 29.3 pg (27.0-33.4); MEAN CORPUSCULAR HGB CONC 32.8 g/dL (32.0-36.0); MEAN CORPUSCULAR VOLUME 89 fl (80-97); MONOCYTES % (AUTO) 6.6 % (3-13); RED BLOOD COUNT 4.65 10^6/uL (3.72-5.28); RED CELL DISTRIBUTION WIDTH 14.5 % (11.5-14.0); WHITE BLOOD COUNT 16.5 10^3/uL (4.0-10.5)
--- NOTE | 2016-10-15 09:12 | RADIOLOGY REPORT (SQ) ---
EXAM DESCRIPTION: CHEST PA/LAT COMPLETED DATE/TIME: 10/15/2016 9:01 am REASON FOR STUDY: hypoxia COMPARISON: 04/17/2016. EXAM PARAMETERS: NUMBER OF VIEWS: two views TECHNIQUE: Digital Frontal and Lateral radiographic views of the chest acquired. RADIATION DOSE: NA LIMITATIONS: none FINDINGS: LUNGS AND PLEURA: Hazy opacity in the right lung. No large pleural effusion. No pneumoth orax. MEDIASTINUM AND HILAR STRUCTURES: No masses or contour abnormalities. HEART AND VASCULAR STRUCTURES: Heart upper limits of normal size. No evidence for failure. BONES: No acute findings. HARDWARE: None in the chest. OTHER: No other significant finding. IMPRESSION: HAZY OPACITY IN THE RIGHT LUNG MAY BE DUE TO PNEUMONIA VERSUS DEVELOPING ASYMMETRIC PULM ONARY EDEMA. TECHNICAL DOCUMENTATION: JOB ID: [id number] [employer]- All Rights Reserved
[2016-10-15 09:13] LABS: VENOUS BLOOD BASE EXCESS 2.1 mmol/L; VENOUS BLOOD HCO3 28.4 mmol/L (20-32); VENOUS BLOOD PCO2 50.4 mmHg (35-63); VENOUS BLOOD PH 7.37 (7.30-7.42)
[2016-10-15 09:18] LABS: ARTERIAL BLOOD BASE EXCESS 0.8 mmol/L; ARTERIAL BLOOD O2 SATURATION 95.7 % (94-98)
[2016-10-15 09:18] LABS: ALANINE AMINOTRANSFERASE 48 U/L (9-52); ALBUMIN 4.1 g/dL (3.5-5.0); ALKALINE PHOSPHATASE 65 U/L (38-126); ANION GAP 14 (5-19); ASPARTATE AMINO TRANSFERASE 35 U/L (14-36); BILIRUBIN,DIRECT 0.4 mg/dL (0.0-0.4); BILIRUBIN,TOTAL 1.1 mg/dL (0.2-1.3); BLOOD UREA NITROGEN 12 mg/dL (7-20); CALCIUM 9.6 mg/dL (8.4-10.2); CARBON DIOXIDE 24 mmol/L (22-30); CHLORIDE 100 mmol/L (98-107); CREATINE KINASE 68 U/L (30-135); CREATININE RESULT 0.98 mg/dL (0.52-1.25); GLUCOSE 161 mg/dL (75-110); LIPASE 53.3 U/L (23-300); MAGNESIUM 1.8 mg/dL (1.6-2.3); POTASSIUM 4.1 mmol/L (3.6-5.0); SODIUM 137.5 mmol/L (137-145); TOTAL PROTEIN 7.8 g/dL (6.3-8.2)
[2016-10-15 09:29] LABS: CREATINE KINASE MB 2.73 ng/mL (<4.55)
[2016-10-15 09:31] LABS: TROPONIN I 0.414 ng/mL
[2016-10-15] MEDS ORDERED: ASPIRIN 325 MG TABLET PO ONE (09:55)
[2016-10-15] MEDS ORDERED: FUROSEMIDE INJ/PF 40 MG/4 ML SDV IV ONE (09:55)
[2016-10-15] MEDS ORDERED: HYDRALAZINE HCL INJ/PF 20 MG/1 ML SDV IV ONE ×2 (10:51→11:42)
[2016-10-15] MEDS ORDERED: PIPERACILLIN/TAZOBACTAM 3.375 GM VIAL IV SCH (12:00)
[2016-10-15] MEDS ORDERED: ENOXAPARIN SODIUM INJ 80 MG/0.8 ML DISP.SYRIN SUBCUT SCH (13:15)
[2016-10-15 13:44] LABS: PROTHROMBIN TIME 13.4 SEC (11.4-15.4)
[2016-10-15 13:45] LABS: PARTIAL THROMBOPLASTIN TIME 26.5 SEC (23.5-35.8)
--- NOTE | 2016-10-15 14:59 | ER Document Report ---
ED General - General Chief Complaint: Possible Overdose Stated Complaint: DIZZY,BLURRY VISION Time Seen by Provider: 10/14/16 19:53 TRAVEL OUTSIDE OF THE [place] IN LAST 30 DAYS: No - HPI Patient complains to provider of: Hypoxia overdose Notes: Patient was seen earlier tonight after snorting an unknown yellow powder patient presented signs of an overdose and has been monitored here in the ER waiting for the patient to metabolize to discharge status. Patient was signed out to myself by our night doctor. Patient's vital signs started change patient now is awake however continues to be hypoxic. Upon my evaluation patient is on nasal cannula 6 L with an SPO2 reading 88. Patient states she feels very sleepy and drowsy. Patient does admit to snorting a yellow powder that she thought was cocaine. Patient states she uses cocaine once twice a week. Patient does states history of hypertension no other past medical problems. Patient states she does smoke intermittently. Denies any recent travel out of state or out of country. Patient otherwise denies any chest pain abdominal pain nausea vomiting. - Related Data Allergies/Adverse Reactions: diphenhydramine [From Benadryl] Allergy (Verified 10/14/16 19:44) lithium Allergy (Verified 10/14/16 19:44) Past Medical History - General Information source: Patient - Social History Smoking Status: Current Every Day Smoker Chew tobacco use (# tins/day): No Frequency of alcohol use: Occasional Drug Abuse: Cocaine, Prescription drugs Lives with: Friend Family History: Reviewed & Not Pertinent Neurological Medical History: Reports: Hx Seizures Renal/ Medical History: Denies: Hx Peritoneal Dialysis GI Medical History: Reports: Hx Hepatitis Psychiatric Medical History: Reports: Hx Anxiety, Hx Bipolar Disorder, Hx Depression Infectious Medical History: Reports: Hx Hepatitis Past Surgical History: Reports: Hx Appendectomy, Hx Tonsillectomy, Hx Tubal Ligation - Immunizations Hx Diphtheria, Pertussis, Tetanus Vaccination: Yes Review of Systems - Review of Systems Constitutional: Other - Hypoxia with drowsiness EENT: No symptoms reported Cardiovascular: No symptoms reported Respiratory: No symptoms reported Gastrointestinal: No symptoms reported Genitourinary: No symptoms reported Female Genitourinary: No symptoms reported Musculoskeletal: No symptoms reported Skin: No symptoms reported Hematologic/Lymphatic: No symptoms reported Neurological/Psychological: No symptoms reported Physical Exam - Vital signs Vitals: Pulse Ox 93 10/14/16 19:58 Interpretation: Bradycardic, Hypoxic - General General appearance: Appears well, Alert - HEENT Head: Normocephalic, Atraumatic Eyes: Normal Pupils: PERRL - Respiratory Respiratory status: Tachypnea Chest status: Nontender Breath sounds: Rhonchi Chest palpation: Normal - Cardiovascular Rhythm: Bradycardia Heart sounds: Normal auscultation Murmur: No - Abdominal Inspection: Normal Distension: No distension Bowel sounds: Normal Tenderness: Nontender Organomegaly: No organomegaly - Back Back: Normal, Nontender - Extremities General upper extremity: Normal inspection, Nontender, Normal color, Normal ROM , Normal temperature General lower extremity: Normal inspection, Nontender, Normal color, Normal ROM , Normal temperature, Normal weight bearing. No: Jose's sign - Neurological Neuro grossly intact: Yes Cognition: Normal Orientation: AAOx4 Oxford Coma Scale Eye Opening: Spontaneous Carol Coma Scale Verbal: Oriented Oxford Coma Scale Motor: Obeys Commands Carol Coma Scale Total: 15 Speech: Normal Motor strength normal: LUE, RUE, LLE, RLE Sensory: Normal - Psychological Associated symptoms: Normal affect, Normal mood - Skin Skin Temperature: Warm Skin Moisture: Dry Skin Color: Normal Course - Re-evaluation Re-evalutation: 10/15/16 14:54 Because of continued hypoxia second workup was began. Patient's chest x-rays concerning for unilateral pneumonia or pulmonary edema. At this time looking at the nursing notes there is no reports of nausea vomiting unknown possible aspiration could be on the differential patient was initially given Levaquin and broaden with Zosyn. Single dose of Lasix also given to possible treat the patient's pulmonary edema with patient's history of drug abuse multiple doses of Narcan being given with thought process a possible long acting opioid such as fentanyl or methadone overdose unilateral pulmonary edema can also be on the differential. Patient's respiratory status not improved with nasal cannula therefore patient was placed on BiPAP. Laboratory studies does show a white count. At the patient was on BiPAP for approximately 30-45 minutes an ABG was obtained is very concerning is that the patient's PO2 was only 75 as the patient has an FiO2 of 75. Also concerning for ARDS patient continued to be monitored. An EKG was repeated showing acute changes with T-wave inversions V2 through V6. Troponin was obtained showing elevation of 0.4. Initially this was thought to be more likely due to demand are due to cocaine use repeat 4 hours does show that the troponin was trending up at 2.6 therefore at that time patient was given a dose of Lovenox. Did discuss case with hospitalist recommend patient be transferred due to EKG changes and positive troponin. I did discuss with Dr. Rios at [facility] who agrees with our treatment plan at this time. Continue to monitor the patient's airway status we will try to titrate the FiO2 down however patient does have another increase in FiO2 more likely will be intubating the patient. After prolonged observation. Patient's FiO2 has been titrated down to 50 will continue to do this process patient otherwise is stable for transport to [facility]. I did update the patient with her medical prognosis at this time patient is requesting to be transferred only to [facility] at this time 10/15/16 14:59 Blood pressure continue to increase due to the patient's bradycardia although patient has a history of clonidine I was reluctant to give this to give 1 dose 10 mg of hydralazine with a good result. - Vital Signs Vital signs: Temp Pulse Resp BP Pulse Ox 98 F 25 H 135/96 H 99 10/15/16 10:18 10/15/16 13:43 10/15/16 13:01 10/15/16 13:43 - Laboratory Result Diagrams: 10/15/16 08:38 10/15/16 08:38 Laboratory results interpreted by me: 10/14/16 10/15/16 10/15/16 20:07 08:38 08:38 WBC 16.5 H RDW 14.5 H Absolute Neutrophils 11.7 H ABG pO2 ABG Total CO2 Glucose 142 H 161 H Lactic Acid AST 45 H Salicylates < 1.0 L Acetaminophen < 10 L 10/15/16 10/15/16 08:38 09:06 WBC RDW Absolute Neutrophils ABG pO2 75.9 L ABG Total CO2 25.8 H Glucose Lactic Acid 2.3 H AST Salicylates Acetaminophen Critical Care Note - Critical Care Note Total time excluding time spent on procedures (mins): 60 Comments: Patient requiring multiple re-evaluations due to hypoxia or respiratory distress. Discharge - Discharge Clinical Impression: Respiratory distress requiring BiPAP, Elevated troponin Overdose Qualifiers: Encounter type: initial encounter Injury intent: accidental or unintentional Qualified Code(s): T50.901A - Poisoning by unspecified drugs, medicaments and biological substances, accidental (unintentional), initial encounter Altered mental status Qualifiers: Altered mental status type: somnolence Qualified Code(s): R40.0 - Somnolence Pneumonia Qualifiers: Pneumonia type: due to unspecified organism Laterality: right Lung location: unspecified part of lung Qualified Code(s): J18.9 - Pneumonia, unspecified organism Hypertension Qualifiers: Hypertension type: unspecified Qualified Code(s): I10 - Essential (primary) hypertension Condition: Fair Disposition: [facility] Additional Instructions: Please return to the emergency room immediately if you experience any concerning symptoms including high fevers, severe headache, chest pain, difficulty breathing, abdominal pain, slurred speech, numbness or weakness in your arms or legs, or any other symptom that concerns you. Referrals: EZEQUIEL HIGHTOWER NP [Primary Care Provider] - Follow up as needed
--- NOTE | 2016-10-15 16:42 | ER Document Report ---
Doctor's Note Notes: 10/15/16 16:52 I assumed care of patient at [address] Goddard in the ER. This is a 41-year-old female with a psychiatric history that initially presented with decreased mental status in the setting of overdose while snorting. The patient was noted to have significant oxygen desaturations and associated with elevations of her troponin. At that point, the case was apparently discussed with the hospitalist at this hospital and they requested transfer to an outpatient facility. [facility] was contacted and it is accepted patient in transfer. Currently, patient is resting comfortably and easily arousable. Her blood pressure is 94/50 and her heart rate is 46, her respiratory rate is 16 and her oxygen saturation is 96%. We are continuing supportive care. She is easily arousable and maintaining her airway at this time. Currently, she is on BiPAP with an IPAP of 12, EPAP of 16 , 30% oxygen, respiratory rate 8. She is receiving IV fluids. Her heart rate reportedly is in the range of 40-50 (sinus bradycardia). The patient is without complaints at this time.
--- NOTE | 2016-10-15 16:54 | EKG REPORT ---
SEVERITY:- ABNORMAL ECG - SINUS RHYTHM ABNORMAL T, CONSIDER ISCHEMIA, ANT-LAT LEADS : Confirmed by: Celso White MD 15-Oct-2016 16:54:04
[2016-10-15 17:42] VITALS: BP 140/96
== END 2016-10-15 17:46 | disposition short-term general hospital (02) ==
LOC: ER 19:36
DX: T50.901A Poisoning by unspecified drugs, medicaments and biological substances, accidental (unintentional), initial encounter (principal); R40.0 Somnolence; J18.9 Pneumonia, unspecified organism; I10 Essential (primary) hypertension; R06.00 Dyspnea, unspecified; R42 Dizziness and giddiness; H53.8 Other visual disturbances; F17.200 Nicotine dependence, unspecified, uncomplicated
CPT/HCPCS: 93005 ×2; 96376; 99285; 96372; 96361; 96375; 96365; 96367; 36415; 87040; 82553; 80307 ×4; 82803 ×2; 82550; 83690; 83735; 85025; 85610; 85730; 80053; 84484; 83605; 71020; 93010 ×2; 94660; J1956; J1940; J0360; J2310 ×2; J7030 ×2; J1650; J2543

== ENCOUNTER 2016-10-23 10:43 | Observation (INO) | payer SELFPAY ==
--- NOTE | 2016-10-23 11:05 | ER Document Report ---
ED General - General Chief Complaint: Chest Pain Stated Complaint: CHEST PAIN,RIGHT SIDE BODY PAIN Time Seen by Provider: 10/23/16 10:53 Notes: This is a 41-year-old female with history of psychiatric illness and drug abuse who is actually seen here in this emergency department little over a week ago for a drug overdose after snorting an unknown substance. During her ED stay she was in respiratory distress and altered. She ended up on BiPAP. She ended up having an elevated troponin. Reviewing her EKG and ED records it seems that her lateral and most of her precordial T waves had flipped during her ED stay. She was transferred divided. As far she can tell she was diagnosed with pneumonia and discharged about 5 days ago. She is not sure if she had a catheter stress test but she said she was diagnosed with a small heart attack. Since then she has had intermittent and worsening right-sided leg pain, including her arm as well. Then today she started having some shortness of breath and left-sided sharp chest pain nonpleuritic and intermittent. She coughs a little bit in the morning and night but is no hemoptysis. She has not noticed leg swelling. She denies current drug use. TRAVEL OUTSIDE OF THE [place] IN LAST 30 DAYS: No - Related Data Allergies/Adverse Reactions: diphenhydramine [From Benadryl] Allergy (Verified 10/14/16 19:44) lithium Allergy (Verified 10/14/16 19:44) Past Medical History - General Information source: Patient - Social History Smoking Status: Current Every Day Smoker Family History: Reviewed & Not Pertinent Neurological Medical History: Reports: Hx Seizures Renal/ Medical History: Denies: Hx Peritoneal Dialysis GI Medical History: Reports: Hx Hepatitis Psychiatric Medical History: Reports: Hx Anxiety, Hx Bipolar Disorder, Hx Depression Infectious Medical History: Reports: Hx Hepatitis Past Surgical History: Reports: Hx Appendectomy, Hx Tonsillectomy, Hx Tubal Ligation - Immunizations Hx Diphtheria, Pertussis, Tetanus Vaccination: Yes Review of Systems - Review of Systems Notes: REVIEW OF SYSTEMS GEN: Denies fever, chills, weight loss ENT: Denies sore throat, nasal discharge, ear pain EYES: Denies blurry vision, eye pain, discharge CV: Chest pain a RESP: Cough, shortness of breath GI: Denies abdominal pain, nausea, vomiting, diarrhea MSK: D and and right knee and calf. SKIN: Denies rash, skin lesions. Bruising on right arm from IV starts. LYMPH: Denies swollen glands/lymph nodes NEURO: Denies headache, focal weakness or numbness, dizziness PSYCH: Denies depression, suicidal or homicidal ideation PHYSICAL EXAMINATION General: No acute distress, well-nourished Head: Atraumatic, normocephalic ENT: Mouth normal, oropharynx moist, no exudates or tonsillar enlargement Eyes: Conjunctiva normal, pupils equal, lids normal Neck: No JVD, supple, no guarding CVS: Normal rate, regular rhythm, no murmurs Resp: No resp distress, equal and normal breath sounds bilaterally GI: Nondistended, soft, no tenderness to palpation, no rebound or guarding Ext: No deformities, no edema, normal range of motion in upper and lower ext. Scattered ecchymosis on the right arm. Back: No CVA or midline TTP Skin: No rash, warm Lymphatic: No lymphadeopathy noted Neuro: Awake, alert. Face symmetric. GCS 15. Physical Exam - Vital signs Vitals: Temp Pulse Resp BP Pulse Ox 98.6 F 110 H 18 137/107 H 97 10/23/16 10:46 10/23/16 10:46 10/23/16 10:46 10/23/16 10:46 10/23/16 10:46 Course - Re-evaluation Re-evalutation: 10/23/16 11:04 This is a 41-year-old female with a recent admission for overdose and an STEMI with bumps troponin, with an unknown workup at [facility] who returns with some chest pain and shortness of breath. She looks well with normal vital signs. Her exam is normal except for bruising on the right arm consistent with IV insertion. She complains of some vague right knee and calf pain but there is no swelling or dilated veins suggestive of deep vein thrombosis. Despite this, until diagnosis still includes pulmonary embolus, acute coronary syndrome. She may still be using drugs. We will get a troponin repeat her EKG and get a basic set of labs including a chest x-ray and a d-dimer. 10/23/16 11:[address] aMckey at [facility]. He reviewed the patient's hospitalization with me. She got a cardiac catheterization advisement which showed a normal left coronary system, and right coronary artery spasm. Her troponin peaked at 2.57 and decreased from there. She was diagnosed with coronary artery spasm, but was not discharged on nitroglycerin or calcium channel blockers. Given this finding and her current chest pain I believe she may be suffering again from coronary artery spasm. She will receive aspirin and I will try a calcium channel darron. Given her T-wave inversions and shortness of breath and the fact that she was not ruled out for pulmonary embolus last time, I will send a d -dimer as she is inferiorly low risk. 10/23/16 12:58 Reassessed at 12:45 PM. Patient is pain-free and only having mild shortness of breath. Multiple attempts at IV access were made. She does not have an IV that is appropriate for a CT angiogram. D-dimer is sent. Labs are currently pending although the chemistries going back with only mild hypokalemia. Chest x -ray is read as normal. BNP is very mildly elevated, so very mild pulmonary edema could be the cause of her shortness of breath despite a normal x-ray and lack of hypoxia. This would be not unexpected given that she had a recent episode of an STEMI from drug use. Will repeat her EKG that she is pain-free to rule out dynamic changes, weight for d-dimer. E. 10/23/16 15:47 Reevaluated at 3:30 PM. Asymptomatic. Patient is going for VQ scan which I ordered secondary to her inability to get a CT scan. I discussed the case with Dr. Underwood will admit. The patient has an elevated BNP and elevated troponin. - Vital Signs Vital signs: Temp Pulse Resp BP Pulse Ox 98.6 F 110 H 17 127/93 H 100 10/23/16 10:46 10/23/16 10:46 10/23/16 15:01 10/23/16 15:01 10/23/16 15:01 - Laboratory Result Diagrams: 10/23/16 13:59 10/23/16 11:25 Laboratory results interpreted by me: 10/23/16 10/23/16 10/23/16 11:25 11:25 13:59 WBC RDW D-Dimer 0.58 H Potassium 3.5 L Glucose 112 H NT-Pro-B Natriuret Pep 4110 H 10/23/16 13:59 WBC 12.1 H RDW 14.3 H D-Dimer Potassium Glucose NT-Pro-B Natriuret Pep - Diagnostic Test Radiology reviewed: Image reviewed, Reports reviewed - EKG Interpretation by Me EKG shows normal: Sinus rhythm Rate: Normal - Inverted T waves in the precordial leads, slightly deeper than prior EKG. No ST or T-wave changes. When compared to previous EKG there are: Changes noted Discharge - Discharge Clinical Impression: Shortness of breath Admitting Provider: Hospitalist Unit Admitted: Telemetry
[2016-10-23] MEDS ORDERED: NIFEDIPINE 10 MG CAPSULE PO ONE (11:28)
--- NOTE | 2016-10-23 11:40 | RADIOLOGY REPORT (SQ) ---
EXAM DESCRIPTION: CHEST SINGLE VIEW COMPLETED DATE/TIME: 10/23/2016 11:32 am REASON FOR STUDY: cp COMPARISON: 10/15/2016 EXAM PARAMETERS: NUMBER OF VIEWS: One view. TECHNIQUE: Single frontal radiographic view of the chest acquired. RADIATION DOSE: NA LIMITATIONS: None. FINDINGS: LUNGS AND PLEURA: No opacities, masses or pneumothorax. No pleural effusion. MEDIASTINUM AND HILAR STRUCTURES: No masses. Contour normal. HEART AND VASCULAR STRUCTURES: Heart normal in size. Normal vasculature. BONES: No acute findings. HARDWARE: None in the chest. OTHER: No other significant finding. IMPRESSION: NO ACUTE RADIOGRAPHIC FINDING IN THE CHEST. TECHNICAL DOCUMENTATION: JOB ID: [id number]
[2016-10-23 11:56] LABS: ANION GAP 11 (5-19); BLOOD UREA NITROGEN 10 mg/dL (7-20); CARBON DIOXIDE 29 mmol/L (22-30); CHLORIDE 100 mmol/L (98-107); CREATININE RESULT 0.79 mg/dL (0.52-1.25); GLUCOSE 112 mg/dL (75-110); POTASSIUM 3.5 mmol/L (3.6-5.0); SODIUM 139.7 mmol/L (137-145)
[2016-10-23 14:26] LABS: ABSOLUTE BASOPHILS # (AUTO) 0.1 10^3/uL (0.0-0.2); ABSOLUTE LYMPHOCYTES (AUTO) 3.4 10^3/uL (0.5-4.7); ABSOLUTE MONOCYTES (AUTO) 0.8 10^3/uL (0.1-1.4); ABSOLUTE NEUT (AUTO) 7.7 10^3/uL (1.7-8.2); BASOPHILS % (AUTO) 0.5 % (0-2); EOSINOPHILS % (AUTO) 0.2 % (0-6); HEMATOCRIT 38.6 % (36.0-47.0); HGB HCT DIFFERENCE 0.4; LYMPHOCYTES % (AUTO) 28.1 % (13-45); MEAN CORPUSCULAR HEMOGLOBIN 29.3 pg (27.0-33.4); MEAN CORPUSCULAR HGB CONC 33.7 g/dL (32.0-36.0); MEAN CORPUSCULAR VOLUME 87 fl (80-97); MONOCYTES % (AUTO) 6.9 % (3-13); RED BLOOD COUNT 4.45 10^6/uL (3.72-5.28); RED CELL DISTRIBUTION WIDTH 14.3 % (11.5-14.0); SEGMENTED NEUTROPHILS % (AUTO) 64.3 % (42-78); WHITE BLOOD COUNT 12.1 10^3/uL (4.0-10.5)
[2016-10-23] MEDS ORDERED: MAG HYDROX/AL HYDROX/SIMETH SUSP 30 ML UDCUP PO PRN (15:45)
[2016-10-23] MEDS ORDERED: PROMETHAZINE HCL 25 MG TABLET PO PRN (15:45)
[2016-10-23] MEDS ORDERED: NITROGLYCERIN 0.4 MG/TAB 25 TAB/BOTTLE SL PRN (15:45)
--- NOTE | 2016-10-23 16:19 | RADIOLOGY REPORT (SQ) ---
EXAM DESCRIPTION: CTA CHEST COMPLETED DATE/TIME: 10/23/2016 3:23 pm REASON FOR STUDY: r/o PE COMPARISON: None. TECHNIQUE: Study was canceled. IV infiltrated. CONTRAST TYPE AND DOSE: contrast/concentration: Isovue 370.00 mg/ml; Total Contrast Delivered: 50.9 ml; Total Saline Delivered: 80.0 ml RENAL FUNCTION: BUN 12 creatinine 1.0. RADIATION DOSE: Up-to-date CT equipment and radiation dose reduction techniques were employed. CTDIv ol: 26.4 mGy. DLP: 13 mGy-cm. . LIMITATIONS: See above. FINDINGS: None. IMPRESSION: Canceled study. TECHNICAL DOCUMENTATION: JOB ID: [id number] Quality ID # [id number]: Final reports with documentation of one or more dose reduction techniques (e.g., Au tomated exposure control, adjustment of the mA and/or kV according to patient size, use of iterative reconstruction technique) 2010 [employer]- All Rights Reserved
--- NOTE | 2016-10-23 16:35 | RADIOLOGY REPORT (SQ) ---
EXAM DESCRIPTION: NM LUNG VENT/PERF SCAN COMPLETED DATE/TIME: 10/23/2016 4:22 pm REASON FOR STUDY: r/o pe COMPARISON: None. RADIONUCLIDE AND DOSE: 5.3 millicuries TC-99m MAA Intravenous 31.9 millicuries TC-99m DTPA Inhaled aerosol TECHNIQUE: Eight views of the lungs acquired post ventilation of DTPA aerosol. Eight matching views of the lungs acquired following injection of MAA. LIMITATIONS: None. FINDINGS: VENTILATION: Symmetric and homogeneous distribution of DTPA aerosol during ventilatory pha se. No significant areas of photopenia. PERFUSION: Perfusion images with normal homogenous activity and no wedge-shaped or segmental defects. No ventilation-perfusion mismatches. OTHER: No other significant finding. IMPRESSION: Low probability for pulmonary embolus. TECHNICAL DOCUMENTATION: JOB ID: [id number] [employer]- All Rights Reserved
[2016-10-23 17:18] LABS: URINE BARBITURATES SCREEN NEGATIVE; URINE METHADONE SCREEN NEGATIVE; URINE OPIATES LOW UNCONFIRMED POSITIVE; URINE PHENCYCLIDINE SCREEN NEGATIVE
[2016-10-23 18:18] LABS: CREATINE KINASE MB 5.17 ng/mL (<4.55); TROPONIN I 0.197 ng/mL
--- NOTE | 2016-10-23 19:15 | EKG REPORT ---
SEVERITY:- ABNORMAL ECG - SINUS TACHYCARDIA ABNORMAL T, PROBABLE ISCHEMIA, ANT-LAT LEADS PROLONGED QT INTERVAL : Confirmed by: Celso White MD 23-Oct-2016 19:14:32
[2016-10-23] MEDS: DOCUSATE SODIUM 100 MG CAPSULE PO SCH (19:41)
--- NOTE | 2016-10-23 20:32 | HISTORY AND PHYSICAL E ---
History and Physical NAME: EZEQUIEL SCHMIDT : 1975 AGE: 41Y ADMITTED: 10/23/2016 ROOM: 529 PRIMARY CARE PHYSICIAN: [facility] CHIEF COMPLAINT: Chest pain. HISTORY OF PRESENT ILLNESS: Patient is a 41-year-old female who was recently admitted to [facility] approximately 2 weeks ago for coronary vasospasm secondary to cocaine abuse. At that time her troponin peaked out at about 2.57. Patient reports that she was significantly better after her admission there. Over the last 2 days she does report increasing shortness of breath and some dyspnea on exertion. Over the last 3 hours, she has been having some chest pain. She reports that this occurred while she was sitting and it was not alleviated or exacerbated by anything. Patient had some associated shortness of breath and does describe her chest pain as sharp and located in her left upper chest. Patient reports she was discharged on amoxicillin and aspirin. She reports she normally takes clonidine at night for her high blood pressure. She denies any changes to her current medications. Patient denies any current chest pain at the time that I see her. She is referred to the hospitalist service for evaluation of chest pain. It is to be noted that patient had a cardiac catheterization while at [facility] and was found to have normal left coronaries and had a right coronary vasospasm at that time. No stents were placed. PAST MEDICAL HISTORY: 1. Hepatitis C. 2. Bipolar. 3. Anxiety. 4. PTSD. 5. Questionable seizure disorder. 6. Substance abuse. PAST SURGICAL HISTORY: 1. Appendectomy. 2. Tonsillectomy. 3. Adenoidectomy. 4. Bilateral tubal ligation. 5. Cardiac catheterization. SOCIAL HISTORY: Patient reports that she does drink heavily about every other weekend with her friends but denies any current use, denies tobacco use, admits to history of cocaine and marijuana usage. FAMILY HISTORY: Her sister has a pacemaker and congestive heart failure and is approximately 2 years younger than the patient. There is a family history of alcoholism. ALLERGIES: LITHIUM AND BENADRYL both of which cause rash. HOME MEDICATIONS: 1. Klonopin. 2. Gabapentin. 3. Clonidine. 4. Seroquel. 5. Aspirin. 6. Amoxicillin. CODE STATUS: Patient requests to be a FULL CODE and her friend, Kam, is her surrogate decision maker. REVIEW OF SYSTEMS: CONSTITUTIONAL: Denies fevers, chills, weight loss, weight gain, anorexia. HEENT: Denies visual disturbance, headache, or hearing loss. RESPIRATORY: Denies cough, hemoptysis, or pleurisy. Admits to some dyspnea. CARDIAC: Admits to chest pain as outlined above. Denies PND, orthopnea, and edema. ABDOMEN: Denies abdominal pain, nausea, vomiting, diarrhea, constipation, hematemesis, melena, or hematochezia. GENITOURINARY: Denies dysuria, urgency, frequency, hematuria. SKIN: Denies rashes or wounds. Admits to multiple ecchymosis from hospital stay. MUSCULOSKELETAL: Denies joint pain or swelling. NEUROLOGIC: Denies weakness, numbness, dizziness, dysphasia, dysarthria, ataxia. ENDOCRINE: Denies polyuria, polydipsia, hot or cold intolerance. PSYCHIATRIC: Admits to anxiety. Denies depression, hallucinations, delusions, SI or HI. HEMATOLOGY: Admits to easy bruising. Denies easy bleeding. PHYSICAL EXAMINATION: GENERAL: Patient is a well fed, well nourished, female in no acute respiratory distress. Patient is mildly obese. VITAL SIGNS: Her temperature is 97.5, her pulse is 92, blood pressure of 128/92, respiratory rate of 15, saturation of 98 on room air. HEENT: She is normocephalic. She has no icterus. Her conjunctivae are clear. Extraocular movements are intact. Her pupils are equal, round, and reactive to light and accommodation. She slightly dry mucous membranes. NECK: Her trachea is midline. She has no thyromegaly. Her oropharynx reveals white plaque consistent with thrush. RESPIRATORY: Clear to auscultation bilaterally without wheezes, rhonchi, or rales. CARDIAC: Regular rate and rhythm without appreciable murmur, rub, or gallop. ABDOMEN: Soft, nontender to palpation, nondistended with diminished bowel sounds. She has negative Bueno's sign. RECTAL: Deferred. GENITOURINARY: Deferred. EXTREMITIES: Reveal no cyanosis, clubbing, or edema. MUSCULOSKELETAL: Reveals no joint swelling or deformity. VASCULAR: Reveals normal peripheral pulses. NEUROLOGIC: She is alert and oriented to person, place, and time. Normal speech. Cranial nerves are grossly intact. Strength is equal in all extremities and tactile sensation is present in all extremities. SKIN: Reveals no rashes, wounds, or worrisome skin lesions. She does have multiple ecchymosis consistent with her most recent hospital stay and cardiac catheterization. PSYCHIATRIC: Reveals a normal mood and affect. LABORATORY VALUES: White count of 12.1, hemoglobin of 13, hematocrit of 38.6, and platelets of 399. D-dimer of 0.58. Sodium of 140, potassium 3.5, chloride 100, CO2 of 29, BUN of 10, creatinine 0.79, glucose of 112, calcium of 9, proBNP of 4110, troponin of 0.243. Urine toxicology is unconfirmed positive for opiates as well as marijuana, however, negative for benzodiazepines. Patient's VQ scan is negative for PE. Chest x-ray reveals no acute cardiopulmonary findings. Patient's EKG reveals a prolonged QT interval with sinus tachycardia and T wave inversion in the inferior and lateral leads. IMPRESSION: This is a 41-year-old female with: 1. Chest pain. 2. Prolonged QT. 3. Hypertension. 4. Obesity. 5. Bipolar/anxiety. 6. Hepatitis C. 7. Seizure disorder. 8. Marijuana abuse. 9. History of cocaine abuse. 10. Chronic benzodiazepine dependency. 11. Pneumonia. PLAN: 1. For patient's chest pain, this is likely secondary to thrush. We will place patient on oral Nystatin and rule out patient for acute coronary syndrome. At this time, feel that her elevated troponin is likely secondary to residual from her recent stay. We will consult Cardiology for their input in her case. 2. For her pneumonia, patient reports that she was diagnosed with pneumonia at [facility] and given amoxicillin. We will place patient on Augmentin and continue her therapy. At this time, patient has no coughing or overt signs of acute pneumonic process. We will monitor her for any changes. 3. For her hypertension, at this time I am going to decrease her clonidine to 0.2 mg p[address] at bedtime and place patient on lisinopril 10 mg p.o. b.i.d. and titrate this up. 4. For her bipolar/anxiety, we will stop patient's Seroquel and continue her Klonopin and gabapentin. At this time I am quite concerned about continuing to use Seroquel in this patient as her QTC is measured at 519 milliseconds. Recommend that her outpatient provider change this and we will place her on Restoril this evening for sleep. 5. For her code status, she is a FULL CODE. Total time spent with patient including physical examination, coordination of care, discussion with patient, and review of her prior medical record was 60 minutes of time. DICTATING PHYSICIAN: RADHA CAI M.D. [id number] PHY#: [id number] ID: [id number] JOB#: [id number] ACCT: [id number] cc:RADHA CAI M.D. >
[2016-10-23] MEDS: CLONIDINE HCL 0.2 MG TABLET PO SCH (21:15)
[2016-10-23] MEDS: GABAPENTIN 300 MG CAPSULE PO SCH (21:16)
[2016-10-23] MEDS: FAMOTIDINE 20 MG TABLET PO SCH (21:16)
[2016-10-23] MEDS: CLONAZEPAM 1 MG TABLET PO PRN (21:16)
[2016-10-23] MEDS: ATORVASTATIN CALCIUM 40 MG TABLET PO SCH (21:16)
[2016-10-23] MEDS: AMOXICILLIN TR/POT CLAVULANATE 500-125 MG TAB PO SCH (21:16)
[2016-10-23] MEDS: LISINOPRIL 10 MG TABLET PO SCH (21:16)
[2016-10-23] MEDS: NYSTATIN 500000 UNIT/5 ML UDCUP PO SCH (21:16)
[2016-10-23 21:25] LABS: ADD ON TESTING BLD IN LAB ACKNOWLEDGE
[2016-10-23 21:57] LABS: ALANINE AMINOTRANSFERASE 39 U/L (9-52); ALBUMIN 4.1 g/dL (3.5-5.0); ALKALINE PHOSPHATASE 69 U/L (38-126); ASPARTATE AMINO TRANSFERASE 59 U/L (14-36); BILIRUBIN,DIRECT 0.5 mg/dL (0.0-0.4); BILIRUBIN,TOTAL 0.9 mg/dL (0.2-1.3); MAGNESIUM 1.6 mg/dL (1.6-2.3)
[2016-10-23] MEDS ORDERED: THIAMINE HCL 100 MG in NORMAL SALINE 50 ML IV ONE (22:00)
[2016-10-23] MEDS: TEMAZEPAM 15 MG CAPSULE PO PRN (22:39)
[2016-10-24] MEDS ORDERED: HYDROMORPHONE HCL 2 MG TABLET PO PRN (00:10)
[2016-10-24 00:14] LABS: CREATINE KINASE MB 4.31 ng/mL (<4.55)
[2016-10-24 00:20] LABS: TROPONIN I 0.253 ng/mL
[2016-10-24 04:41] LABS: ANION GAP 11 (5-19); BLOOD UREA NITROGEN 11 mg/dL (7-20); CALCIUM 9.2 mg/dL (8.4-10.2); CARBON DIOXIDE 26 mmol/L (22-30); CHLORIDE 99 mmol/L (98-107); CREATININE RESULT 0.68 mg/dL (0.52-1.25); GLUCOSE 89 mg/dL (75-110); POTASSIUM 3.3 mmol/L (3.6-5.0); SODIUM 136.3 mmol/L (137-145)
[2016-10-24 04:52] LABS: CREATINE KINASE MB 4.75 ng/mL (<4.55); TROPONIN I 0.248 ng/mL
[2016-10-24] MEDS: AMOXICILLIN TR/POT CLAVULANATE 500-125 MG TAB PO SCH ×3 (05:12→21:37)
[2016-10-24] MEDS: POTASSIUM CHLORIDE 20 MEQ/15 ML UDCUP PO SCH ×2 (05:27→09:41)
--- NOTE | 2016-10-24 07:48 | EKG REPORT ---
SEVERITY:- ABNORMAL ECG - SINUS RHYTHM ABNORMAL T, CONSIDER ISCHEMIA, DIFFUSE LEADS PROLONGED QT INTERVAL : Confirmed by: Celso White MD 24-Oct-2016 07:47:26
--- NOTE | 2016-10-24 07:50 | EKG REPORT ---
SEVERITY:- ABNORMAL ECG - SINUS RHYTHM REPOL ABNRM, PROBABLE ISCHEMIA, ANT-LAT LEADS PROLONGED QT INTERVAL : Confirmed by: Celso White MD 24-Oct-2016 07:49:38
--- NOTE | 2016-10-24 07:51 | EKG REPORT ---
SEVERITY:- ABNORMAL ECG - SINUS RHYTHM ABNORMAL T, PROBABLE ISCHEMIA, ANT-LAT LEADS PROLONGED QT INTERVAL : Confirmed by: Celso White MD 24-Oct-2016 07:50:36
--- NOTE | 2016-10-24 09:19 | EKG REPORT ---
SEVERITY:- ABNORMAL ECG - SINUS RHYTHM ABNORMAL T, CONSIDER ISCHEMIA, DIFFUSE LEADS PROLONGED QT INTERVAL : Confirmed on behalf of: Celso White MD 24-Oct-2016 09:18:46
[2016-10-24] MEDS: LISINOPRIL 10 MG TABLET PO SCH ×2 (09:42→21:37)
[2016-10-24] MEDS: GABAPENTIN 300 MG CAPSULE PO SCH ×2 (09:42→21:37)
[2016-10-24] MEDS: DOCUSATE SODIUM 100 MG CAPSULE PO SCH ×2 (09:42→17:31)
[2016-10-24] MEDS: NYSTATIN 500000 UNIT/5 ML UDCUP PO SCH ×4 (09:42→21:37)
[2016-10-24] MEDS: FAMOTIDINE 20 MG TABLET PO SCH ×2 (09:43→21:37)
[2016-10-24] MEDS: CLONAZEPAM 1 MG TABLET PO PRN ×2 (09:43→21:37)
[2016-10-24] MEDS ORDERED: ASPIRIN 325 MG TABLET, ENT COATED PO SCH (10:00)
--- NOTE | 2016-10-24 11:56 | PDOC CONSULTATION ---
Consultation Consult Date: 10/24/16 Attending physician:: RADHA CAI Consult reason:: Abnormal EKG, non-STEMI History of Present Illness Admission Date/PCP: 10/23/16 15:45 Patient complains of: Chest pain History of Present Illness: This is a 41-year-old female with history of psychiatric illness and drug abuse who is actually seen here in this emergency department little over a week ago for a drug overdose after snorting an unknown substance. During her ED stay she was in respiratory distress and altered. She ended up on BiPAP. She ended up having an elevated troponin. Reviewing her EKG and ED records it seems that her lateral and most of her precordial T waves had flipped during her ED stay. She was transferred to the [facility]. It is unclear exactly what took place at the [facility] but she was diagnosed to have coronary vasospasm related myocardial infarction. Since then she has had intermittent and worsening right-sided leg pain, including her arm as well. Then today she started having some shortness of breath and left-sided sharp chest pain nonpleuritic and intermittent. She coughs a little bit in the morning and night but is no hemoptysis. She has not noticed leg swelling. She denies current drug use. Her electrocardiogram as showing significant T-wave inversion in anterior precordial lead. Patient's troponin I are still abnormal. I have been asked to evaluate this patient. Patient on questioning does admit to having intermittent left-sided chest pain. But she claims this is produced by coughing and on movement. Past Medical History Cardiac Medical History: Reports: Myocardial Infarction - Recently diagnosed. Neurological Medical History: Reports: Seizures GI Medical History: Reports: Hepatitis Psychiatric Medical History: Reports: Bipolar Disorder, Depression Past Surgical History Past Surgical History: Reports: Appendectomy, Tonsillectomy, Tubal Ligation Social History Information Source: Patient Smoking Status: Former Smoker Frequency of Alcohol Use: Occasional Hx Recreational Drug Use: No Drugs: Marijuana Hx Prescription Drug Abuse: No - Advance Directive Resuscitation Status: Full Code Family History Family History: Reviewed & Not Pertinent Parental Family History Reviewed: Yes Children Family History Reviewed: Yes Sibling(s) Family History Reviewed.: Yes Medication/Allergy Home Medications: Clonazepam [Klonopin 1 mg Tablet] 1 mg PO Q12HP PRN 10/23/16 Clonidine HCl [Catapres 0.3 mg Tablet] 0.3 mg PO QHS 10/23/16 Allergies/Adverse Reactions: diphenhydramine [From Benadryl] Allergy (Verified 10/14/16 19:44) lithium Allergy (Verified 10/14/16 19:44) Review of Systems Review of Systems: Please see history of present illness and past medical history as wall. Constitutional: No fever or chills reported. Head : No recent chronic headaches, recent head injury. Eyes: No recent eye pain, diplopia, redness, discharge, acute visual changes. Ears: No recent chronic ear pain, acute hearing loss, ear discharge. Oral cavity: No recent ulcerations, bleeding, oral cavity discomfort. Neck: No recent acute neck pain reported. Hematologic: No recent easy bruising or bleeding or hematologic malignancy reported. Lymphatic: No recent lymphatic malignancy, chronic lymphadenopathy reported yet Cardiovascular system review: See history of present illness. Respiratory system review: Positive for recent cough but denied any hemoptysis, blood clots in the lungs reported. Mild Shortness of breath on exertion Gastrointestinal system review: Negative for any recent acute or chronic abdominal pain, hematemesis, melena, recent change in bowel habits. Genitourinary system review: No recent acute or chronic hematuria, flank pain, UTI etc. reported. Skin system review: Negative for any recent abnormal bruising, no rash, no pruritus reported. Neurologic: No prior history of strokes, mini strokes, seizure disorder. Psychologic: History of bipolar disorder. Musculoskeletal: Minor aches and pains reported. No acute joint swelling reported. Endocrine: No recent polyuria, polydipsia, recent heat or cold intolerance. Physical Exam Vital Signs: Temp Pulse Resp BP Pulse Ox 97.7 F 71 18 118/71 97 10/24/16 07:24 10/24/16 07:24 10/24/16 07:24 10/24/16 07:24 10/24/16 07:24 Intake & Output 10/23/16 10/24/16 10/25/16 06:59 06:59 06:59 Intake Total 700 Balance 700 Weight 79 kg Exam: GENERAL: well-nourished and in no acute distress. Alert and oriented x3 HEAD: Atraumatic, normocephalic. EYES: Pupils equal round and reactive to light, extraocular movements intact, sclera anicteric, conjunctiva are normal. ENT: TMs normal, nares patent, oropharynx clear without exudates. Moist mucous membranes. No oral ulcerations or bleeding gums noted NECK: supple without lymphadenopathy. Trachea is central. No cervical or axillary lymphadenopathy noted. Carotids are 2+, JVD WNL LUNGS: Respiration seems nonlabored, no significant accessory muscle action noted. Breath sounds clear to auscultation bilaterally and equal noted. No wheezes rales or rhonchi noted. No significant dullness noted on percussion. CHEST: Palpation of the chest wall shows left-sided significant chest wall tenderness. No other significant abnormalities noted. HEART: [place] [employer], No PSH, 1/6 JESS aortic area, 1/6 mullins systolic murmur mitral area, no rubs, no gallops. ABDOMEN: Soft, no significant tenderness appreciated, normoactive bowel sounds. No guarding, no rebound. No rigidity noted . No masses appreciated. EXTREMITIES: Pedal pulses are 1-2+, no calf tenderness noted. No clubbing or cyanosis.trace to 1+ pedal edema noted NEUROLOGICAL: Focused neurological exam showed no significant neurologic deficit. Normal speech, no focal weakness appreciated. PSYCH: Normal mood, normal affect. Judgment and insight within normal limits. SKIN: No significant ecchymosis, rash, ulcerations or signs of pruritus noted. MUSCULOSKELETAL EXAM: No significant joint swelling noted. Results Laboratory Results: 10/24/16 03:55 10/23/16 10/24/16 17:36 03:55 Sodium 136.3 L Potassium 3.3 L Chloride 99 Carbon Dioxide 26 Anion Gap 11 BUN 11 Creatinine 0.68 Est GFR ( Amer) > 60 Est GFR (Non-Af Amer) > 60 Glucose 89 Calcium 9.2 Magnesium 1.6 Total Bilirubin 0.9 AST 59 H ALT 39 Alkaline Phosphatase 69 Total Protein 8.0 Albumin 4.1 10/23/16 10/23/16 10/24/16 17:36 23:38 03:55 CK-MB (CK-2) 5.17 H 4.31 4.75 H Troponin I 0.197 0.253 0.248 EKG Comments: Sinus rhythm with T-wave inversion, symmetric anterior precordial leads consistent with ischemia. Impressions: Lung Scan-VQ NM 10/23/16 00:00 IMPRESSION: Low probability for pulmonary embolus. Chest X-Ray 10/23/16 10:57 IMPRESSION: NO ACUTE RADIOGRAPHIC FINDING IN THE CHEST. Chest/Abdomen CTA 10/23/16 11:24 IMPRESSION: Canceled study. Assessment & Plan - Diagnosis (1) Non-STEMI (non-ST elevated myocardial infarction) Is this a current diagnosis for this admission?: Yes (2) Chest pain Qualifiers: Chest pain type: chest pain on breathing Qualified Code(s): R07.1 - Chest pain on breathing; R07.81 - Pleurodynia Is this a current diagnosis for this admission?: Yes (3) Bipolar disorder Qualifiers: Active/Remission status: in remission of unspecified degree Qualified Code(s): F31.70 - Bipolar disorder, currently in remission, most recent episode unspecified Is this a current diagnosis for this admission?: Yes (4) Hypertension Qualifiers: Hypertension type: essential hypertension Qualified Code(s): I10 - Essential (primary) hypertension Is this a current diagnosis for this admission?: Yes (5) PTSD (post-traumatic stress disorder) Is this a current diagnosis for this admission?: Yes - Notes Notes: Non-STEMI: Patient EKG changes and troponin elevation suggest non-STEMI. Troponin I elevation could have been left over from last admission. However the pattern of troponin I is not clear at this time. Also pattern of CK-MB series is also not. Would recommend treatment with statins, aspirin, Plavix, nitrates, ANJEL inhibitors. Would avoid beta blockers at this time since history of coronary vasospasm. Will start patient on small dose of Cardizem. In the meantime we will try to obtain records from tertiary care center where she was transferred. Chest pain: This is felt to be pleuritic possibly related to chest wall. Bipolar disorder: Continue current management plans. Hypertension: Blood pressure goal should be 135/85 or less. History of PTSD: Currently stable. Have ordered a 2D echo for risk stratification. Further plans after review of records. - Time Time Spent: 50 to 70 Minutes - CODE STATUS was discussed, patient remains full code. Surrogate decision-maker unchanged. Multiple medical problems were addressed. More than 50% of the time spent coordinating care, discussing management plans with involved caregivers. Management plans discussed with involved personnels. Medical decision making was of moderate to high complexity , patient's has multiple comorbidities. Medications reviewed and adjusted accordingly: Yes
[2016-10-24] MEDS: DILTIAZEM HCL 30 MG TABLET PO SCH ×3 (12:59→23:26)
[2016-10-24] MEDS ORDERED: POTASSIUM CHLORIDE 10 MEQ TABLET.SA PO ONE (13:33)
[2016-10-24] MEDS ORDERED: CLOPIDOGREL BISULFATE 75 MG TABLET PO SCH (18:00)
--- NOTE | 2016-10-24 18:52 | PROGRESS NOTE E ---
Progress Note NAME: EZEQUIEL SCHMIDT : 1975 AGE: 41Y DATE: 10/24/2016 ROOM: 529 SUBJECTIVE: The patient denies fevers, chills, headaches, focal weakness, chest pain, shortness of breath, abdominal pain, nausea, vomiting, diarrhea or constipation. The patient denies any further chest pain. She does report some lower extremity pain for which she was given Dilaudid overnight and requests Dilaudid again. The patient has been informed that this is not likely to happen again. OBJECTIVE: VITAL SIGNS: Temperature of98, pulse of 82, blood pressure of 100/58, respiratory rate of 17, saturation of 99% on room air. GENERAL: The patient appears well. She is in no acute distress. She is awake, alert, and oriented x3. HEENT: She is normocephalic. She has no icterus. Her conjunctivae are clear. Her extraocular eye movements are intact. Pupils are equal and react to light and accommodation. Her mucosa is pink and moist. NECK: Supple. Her trachea is midline. She has no JVD. CHEST: Clear to auscultation bilaterally without wheezes, rhonchi or rales. CARDIOVASCULAR: Regular rate and rhythm without appreciable murmur, rub, or gallop. ABDOMEN: Soft, nontender to palpation, nondistended with active bowel sounds. EXTREMITIES: Reveal no cyanosis, clubbing, or edema. MUSCULOSKELETAL: Reveals no joint swelling or deformity, and patient is neurovascularly intact. NEUROLOGIC: She is awake, alert, and oriented to person, place and time. Her speech is normal. Her cranial nerves are grossly intact. Her strength is equal in all extremities and a tactile sensation is present in all extremities. SKIN: Reveals no rashes or wounds or recent skin lesions, she does have multiple ecchymoses consistent with her most recent hospitalization. PSYCHIATRIC: The patient does have a flat affect. LABORATORY VALUES: As follows. The patient's troponin trended from 0.243 to 0.197 to 0.253 to 0.248. Potassium was 3.3, chloride of 99, CO2 of 20, BUN of 11, creatinine of 0.68, glucose of 89, calcium was 9.2. The patient's drug screen was positive for opiates and also for marijuana. The patient's EKG does reveal some inverted T-waves inferolaterally. A VQ scan was negative for pulmonary emboli, and the patient's EKG also did reveal a prolonged QT interval. IMPRESSION: THIS IS A 41-YEAR-OLD FEMALE WITH: 1. CHEST PAIN. 2. RECENT NON-STEMI, POSSIBLY SECONDARY TO VASOSPASM. 3. PLEURITIC CHEST PAIN SECONDARY TO RESIDUAL PNEUMONIA. 4. HYPERTENSION. 5. HISTORY OF PTSD. 6. BIPOLAR DISORDER. 7. ANXIETY. 8. PROLONGED QT. 9. HYPERTENSION. PLAN: 1. For the patient's chest pain, at this time we appreciate the input of Cardiology on her case. We are pending her records from [facility] and we will repeat her troponin in the morning, as the patient's current troponin may be residual from her prior admission. I placed the patient on Lipitor, aspirin, Plavix, lisinopril and nitroglycerin p.r.n. 2. For patient's pneumonia, continue Augmentin. 3. For her hypokalemia, will replete and recheck a magnesium. 4. For patient's polysubstance abuse, we have encouraged abstinence. 5. For her hypokalemia, we will replete and recheck. 6. For her bipolar disorder/PTSD, continue the patient on her home Klonopin, gabapentin and at this time will stop her Seroquel and continue with Restoril as the patient does have a significantly prolonged QT interval and have advised *------*. 7. For the patient's obesity with a BMI of 32.9, she is advised to engage in ongoing weight loss activities under the discretion of her physician as an outpatient. Total time spent with the patient, including physical examination, coordination of care and discussion with the patient and consultants was 40 minutes of time. The patient requires ongoing admission as Cardiology would like to plot out her troponin and repeat an echocardiogram. DICTATING PHYSICIAN: RADHA CAI M.D. [id number] PHY#: [id number] ID: [id number] JOB#: [id number] ACCT: [id number] cc: >
--- NOTE | 2016-10-24 19:30 | XCELERA REPORT ---
[address] [address] Transthoracic Echocardiogram Report Name: EZEQUIEL SCHMIDT Age: 41 yrs Gender: Female : 1975 Patient Status: Inpatient Patient Location: 5\S\529\S\A Study Date: 10/24/2016 01:37 PM Height: 61 in Weight: 178 lb BSA: 1.8 m2 Procedure: A complete two-dimensional transthoracic echocardiogram was performed (2D, M-mode, spectral and color flow Doppler). The study was technically adequate with some images being suboptimal in quality. Reason For Study: LV Function, size, wall thickness,Valve Function Ordering Physician: RADHA CAI Performed By: Lola Cadena Interpretation Summary The left ventricular ejection fraction is normal. Doppler measurements suggest pseudonormalized left ventricular relaxation, which is associated with grade II/IV or mild to moderate diastolic dysfunction There is borderline concentric left ventricular hypertrophy. Possible more moderate apical hypertrophy. The left ventricle is grossly normal size. Wall motion cannot be accurately commented on, but no definite regional wall motion abnormalities noted. The right ventricle is grossly normal size. The right ventricular systolic function is normal. The right atrium is normal in size The left atrial size is normal. There is a trace amount of mitral regurgitation There is no mitral valve stenosis. There is no aortic valve stenosis No aortic regurgitation is present. There is a trace or physiologic amount of tricuspid regurgitation Tricuspid regurgitation jet envelope not well defined to measure RV systolic pressure accurately. The aortic root is not well visualized. The inferior vena cava appeared small and collapsed with respiration (RAP 0-5 mmHg) Small pericardial effusion. Localised laterally. MMode/2D Measurements \T\ Calculations RVDd: 2.2 cm LVIDd: 4.7 cm FS: 42.3 % Ao root diam: 2.9 cm IVSd: 1.0 cm LVIDs: 2.7 cm EDV(Teich): 103.5 ml LVPWd: 1.0 cm ESV(Teich): 27.7 ml Ao root area: 6.4 cm2 EF(Teich): 73.2 % Doppler Measurements \T\ Calculations MV E max suki: MV dec slope: Ao V2 max: LV V1 max P.1 cm/sec 147.4 cm/sec 4.8 mmHg MV A max suki: 309.2 cm/sec2 Ao max PG: LV V1 max: 77.8 cm/sec MV dec time: 8.7 mmHg 110.1 cm/sec MV E/A: 0.75 0.19 sec PA V2 max: 77.9 cm/sec PA max P.4 mmHg Left Ventricle The left ventricle is grossly normal size. There is borderline concentric left ventricular hypertrophy. The left ventricular ejection fraction is normal. Doppler measurements suggest pseudonormalized left ventricular relaxation, which is associated with grade II/IV or mild to moderate diastolic dysfunction. Wall motion cannot be accurately commented on, but no definite regional wall motion abnormalities noted. Right Ventricle The right ventricle is grossly normal size. There is normal right ventricular wall thickness. The right ventricular systolic function is normal. Atria The right atrium is normal in size. The left atrial size is normal. Interarterial septum not well visualized and not well dopplered. Cannot comment on ASD/PFO presence. Mitral Valve The mitral valve is grossly normal. There is no mitral valve stenosis. There is a trace amount of mitral regurgitation. Aortic Valve The aortic valve is grossly normal. There is no aortic valve stenosis. No aortic regurgitation is present. Tricuspid Valve The tricuspid valve is not well visualized, but is grossly normal. There is no tricuspid stenosis. There is a trace or physiologic amount of tricuspid regurgitation. Tricuspid regurgitation jet envelope not well defined to measure RV systolic pressure accurately. Pulmonic Valve The pulmonic valve is not well visualized. Great Vessels The aortic root is not well visualized. The inferior vena cava appeared small and collapsed with respiration (RAP 0-5 mmHg). Effusions Small pericardial effusion. : RADHA CAI > Taylor Joshi
[2016-10-24] MEDS: CLONIDINE HCL 0.2 MG TABLET PO SCH (21:37)
[2016-10-24] MEDS: ATORVASTATIN CALCIUM 40 MG TABLET PO SCH (21:37)
[2016-10-24] MEDS: TEMAZEPAM 15 MG CAPSULE PO PRN (22:49)
[2016-10-25] MEDS: AMOXICILLIN TR/POT CLAVULANATE 500-125 MG TAB PO SCH (05:47)
[2016-10-25] MEDS: DILTIAZEM HCL 30 MG TABLET PO SCH (05:52)
[2016-10-25] MEDS: DOCUSATE SODIUM 100 MG CAPSULE PO SCH (09:58)
[2016-10-25] MEDS: GABAPENTIN 300 MG CAPSULE PO SCH (09:58)
[2016-10-25] MEDS: FAMOTIDINE 20 MG TABLET PO SCH (09:58)
[2016-10-25] MEDS: NYSTATIN 500000 UNIT/5 ML UDCUP PO SCH (09:58)
[2016-10-25] MEDS: LISINOPRIL 10 MG TABLET PO SCH (09:59)
[2016-10-25] MEDS ORDERED: ASPIRIN 81 MG TABLET, ENT COATED PO SCH (10:00)
[2016-10-25 12:15] VITALS: BP 125/72
--- NOTE | 2016-10-25 13:44 | EKG REPORT ---
SEVERITY:- ABNORMAL ECG - SINUS RHYTHM ABNORMAL T, CONSIDER ISCHEMIA, ANT-LAT LEADS BORDERLINE PROLONGED QT INTERVAL : Confirmed by: Celso White MD 25-Oct-2016 13:43:41
--- NOTE | 2016-10-25 17:46 | PDOC DISCHARGE SUMMARY ---
General - Admit/Disc Date/PCP Admission Date/Primary Care Provider: 10/23/16 15:45 Discharge Date: 10/25/16 - Discharge Diagnosis (1) Chest pain Is this a current diagnosis for this admission?: Yes (2) Prolonged Q-T interval on ECG Is this a current diagnosis for this admission?: Yes (3) Bipolar disorder Is this a current diagnosis for this admission?: Yes (4) Borderline personality disorder Is this a current diagnosis for this admission?: Yes (5) History of hepatitis C Is this a current diagnosis for this admission?: Yes (6) Hypertension Is this a current diagnosis for this admission?: Yes (7) PTSD (post-traumatic stress disorder) Is this a current diagnosis for this admission?: Yes (8) Obesity (BMI 30.0-34.9) Is this a current diagnosis for this admission?: Yes - Additional Information Resuscitation Status: Full Code Discharge Diet: Cardiac Discharge Activity: Activity As Tolerated Home Medications: Clonazepam [Klonopin 1 mg Tablet] 1 mg PO Q12HP PRN 10/23/16 Aspirin [Ecotrin 81 mg EC Tablet] 81 mg PO DAILY #90 tabec 10/25/16 Atorvastatin Calcium [Lipitor 40 mg Tablet] 40 mg PO QHS #30 tablet 10/25/16 Clopidogrel Bisulfate [Plavix 75 mg Tablet] 75 mg PO QPM #30 tablet 10/25/16 Diltiazem HCl [Cardizem Cd 120 mg Capsule] 1 cap.sr PO DAILY #30 cap.sr Lisinopril [Prinivil 10 mg Tablet] 10 mg PO Q12 #60 tablet 10/25/16 History of Present Illness History of Present Illness: Please see H&P for full HPI Hospital Course Hospital Course: Patient was placed on telemetry and her troponins were monitored. Patient had a very unpredictable mild increase and subsequent decrease in her troponins. Cardiology was consulted for this and it was felt that this time that this is likely residual from her prior non-STEMI last week. Patient did undergo a echocardiogram which revealed grade 2 diastolic dysfunction but a normal EF. Cardiac catheter report was reviewed which revealed normal coronary arteries without occlusion, most likely secondary to coronary artery vasospasm. Patient was placed on calcium channel darron per cardiology. Patient's clonidine was stopped and she was started on lisinopril. Patient also noted to have prolonged QT and her Seroquil was stopped. Patient was advised of this condition and not to take this medication and to follow with her psychiatrist for additional assistance. Patient had no further chest pain and was discharged in stable condition. Physical Exam Vital Signs: Temp Pulse Resp BP Pulse Ox 98.3 F 66 18 109/60 98 10/25/16 11:26 10/25/16 11:26 10/25/16 11:26 10/25/16 11:26 10/25/16 11:26 Intake & Output 10/24/16 10/25/16 10/26/16 06:59 06:59 06:59 Intake Total 700 2670 Output Total 400 Balance 700 2270 Weight 79 kg 80.1 kg Exam: General: Awake alert and orientedx3, no acute respiratory distress HEENT: AT/NC, PERRL, EOMI, oropharynx is moist, pink, no scleral icterus, no conjunctival injection Neck: No JVD, trachea midline Chest: Clear to auscultation bilaterally, no wheezes rhonchi or rales CV: Regular rate and rhythm, normal S1 and S2, no murmur, rub, or gallop Abdomen: Soft, nontender to palpation, nondistended, active bowel sounds; no rebound, rigidity, or guarding Extremities: No cyanosis, clubbing or edema Neuro: Cranial nerves II through XII are grossly intact without focal deficits; awake alert and oriented x3 Psych: Normal mood and affect Results Laboratory Results: 10/24/16 03:55 10/23/16 10/23/16 10/24/16 17:36 23:38 03:55 CK-MB (CK-2) 5.17 H 4.31 4.75 H Troponin I 0.197 0.253 0.248 10/25/16 10:05 CK-MB (CK-2) Troponin I 0.143 Impressions: Lung Scan-VQ NM 10/23/16 00:00 IMPRESSION: Low probability for pulmonary embolus. Chest X-Ray 10/23/16 10:57 IMPRESSION: NO ACUTE RADIOGRAPHIC FINDING IN THE CHEST. Chest/Abdomen CTA 10/23/16 11:24 IMPRESSION: Canceled study. Qualifiers PATEINT BEING DISCHARGED WITH ANY OF THE FOLLOWING DIAGNOSIS?: No Plan Time Spent: Less than 30 Minutes
--- NOTE | 2016-10-26 20:19 | PDOC PROGRESS REPORT ---
Subjective Progress Note for:: 10/25/16 Subjective:: Patient was seen yesterday on rounds but somehow dictation got missed. Patient seems to be doing better. Pt is denying any chest arm or neck discomfort. Patient denying any PND, orthopnea. Patient denied any sustained palpitations, dizziness, syncope, near syncope. Patient denying any fever chills. Patient denying any other significant discomfort. Patient is maintaining sinus rhythm. Review of systems: Rest review of systems negative. Medications: Medications have been reviewed. Physical Exam Vital Signs: Temp Pulse Resp BP Pulse Ox 98.3 F 66 18 109/60 98 10/25/16 11:26 10/25/16 11:26 10/25/16 11:26 10/25/16 11:26 10/25/16 11:26 Intake & Output 10/25/16 10/26/16 10/27/16 06:59 06:59 06:59 Intake Total 2670 Output Total 400 Balance 2270 Weight 80.1 kg Exam: GENERAL: well-nourished and in no acute distress. Alert and oriented x3 HEAD: Atraumatic, normocephalic. EYES: Pupils equal round and reactive to light, extraocular movements intact, sclera anicteric, conjunctiva are normal. ENT: TMs normal, nares patent, oropharynx clear without exudates. Moist mucous membranes. No oral ulcerations or bleeding gums noted NECK: supple without lymphadenopathy. Trachea is central. No cervical or axillary lymphadenopathy noted. Carotids are 2+, JVD WNL LUNGS: Respiration seems nonlabored, no significant accessory muscle action noted. Breath sounds clear to auscultation bilaterally and equal noted. No wheezes rales or rhonchi noted. No significant dullness noted on percussion. CHEST: Palpation of the chest wall shows mild left-sided chest wall tenderness. No other significant abnormalities noted. HEART: [employer], No PSH, 1/6 JESS aortic area, 1/6 mullins systolic murmur mitral area, no rubs, no gallops. ABDOMEN: Soft, no significant tenderness appreciated, normoactive bowel sounds. No guarding, no rebound. No rigidity noted . No masses appreciated. EXTREMITIES: Pedal pulses are 1-2+, no calf tenderness noted. No clubbing or cyanosis.trace to 1+ pedal edema noted NEUROLOGICAL: Focused neurological exam showed no significant neurologic deficit. Normal speech, no focal weakness appreciated. PSYCH: Normal mood, normal affect. Judgment and insight within normal limits. SKIN: No significant ecchymosis, rash, ulcerations or signs of pruritus noted. MUSCULOSKELETAL EXAM: No significant joint swelling noted. Results Laboratory Results: 10/24/16 03:55 10/23/16 10/23/16 10/24/16 17:36 23:38 03:55 CK-MB (CK-2) 5.17 H 4.31 4.75 H Troponin I 0.197 0.253 0.248 10/25/16 10:05 CK-MB (CK-2) Troponin I 0.143 EKG Comments: Sinus rhythm with diffuse T-wave inversions unchanged from yesterday. Impressions: Lung Scan-VQ NM 10/23/16 00:00 IMPRESSION: Low probability for pulmonary embolus. Chest X-Ray 10/23/16 10:57 IMPRESSION: NO ACUTE RADIOGRAPHIC FINDING IN THE CHEST. Chest/Abdomen CTA 10/23/16 11:24 IMPRESSION: Canceled study. Assessment & Plan - Diagnosis (1) Non-STEMI (non-ST elevated myocardial infarction) Is this a current diagnosis for this admission?: Yes (2) Chest pain Qualifiers: Chest pain type: chest pain on breathing Qualified Code(s): R07.1 - Chest pain on breathing Is this a current diagnosis for this admission?: Yes (3) Bipolar disorder Qualifiers: Active/Remission status: in remission of unspecified degree Qualified Code( s): F31.70 - Bipolar disorder, currently in remission, most recent episode unspecified Is this a current diagnosis for this admission?: Yes (4) Hypertension Qualifiers: Hypertension type: essential hypertension Qualified Code(s): I10 - Essential (primary) hypertension Is this a current diagnosis for this admission?: Yes (5) PTSD (post-traumatic stress disorder) Is this a current diagnosis for this admission?: Yes - Notes Notes: Non-STEMI: Patient EKG changes and troponin elevation suggest non-STEMI. Troponin I elevation are now felt to be left over from last admission. Patient cardiac catheterization report was reviewed and she was noted to have nonobstructive coronary artery disease with coronary vasospasm being actively noted. Patient also had a 2D echocardiogram which shows apical hypertrophy which could be the cause of T-wave inversions. Would recommend treatment with statins, aspirin, Plavix, nitrates, ANJEL inhibitors. Would avoid beta blockers at this time since history of coronary vasospasm. Patient was placed on Cardizem yesterday. Will recommend if patient is discharged, to be discharged on Cardizem CD 120 mg p.o. daily. Chest pain: This is felt to be pleuritic possibly related to chest wall. Bipolar disorder: Continue current management plans. Hypertension: Blood pressure goal should be 135/85 or less. History of PTSD: Currently stable. 2D echo results and cardiac catheterization report was reviewed with the patient. Patient advised avoidance of smoking and also illicit drug abuse. I will be happy to follow patient in the office if discharged. - Time Time with patient: Greater than 35 minutes - CODE STATUS was discussed, patient remains full code. Surrogate decision-maker unchanged. Multiple medical problems were addressed. More than 50% of the time spent coordinating care, discussing management plans with involved caregivers. Management plans discussed with involved personnels. Medical decision making was of high complexity, patient's has multiple comorbidities. Also patient had recent non- STEMI. Patient advised not to use cocaine anymore. Patient advised to schedule an appointment with me. Patient informed that she would need close cardiology follow-up as further adjustment of medication may be needed. Medications reviewed and adjusted accordingly: Yes
== END 2016-10-25 13:11 | disposition home or self-care (01) ==
LOC: ER 10:43 → 5 15:45 → EH 16:37 → UNDOADMOB 16:37 → 5 18:39 → EH 18:39
PROVIDERS: ADMIT Family Medicine; ATTEND Family Medicine
DX: R07.9 Chest pain, unspecified (principal); I45.81 Long QT syndrome; F31.9 Bipolar disorder, unspecified; F60.3 Borderline personality disorder; Z86.19 Personal history of other infectious and parasitic diseases; I10 Essential (primary) hypertension; F43.10 Post-traumatic stress disorder, unspecified; E66.9 Obesity, unspecified; R74.8 Abnormal levels of other serum enzymes; I51.89 Other ill-defined heart diseases; J18.9 Pneumonia, unspecified organism; E87.6 Hypokalemia; F41.9 Anxiety disorder, unspecified; F13.20 Sedative, hypnotic or anxiolytic dependence, uncomplicated; F19.10 Other psychoactive substance abuse, uncomplicated; M79.601 Pain in right arm; M25.561 Pain in right knee; F12.10 Cannabis abuse, uncomplicated; F17.200 Nicotine dependence, unspecified, uncomplicated; I25.2 Old myocardial infarction; Z79.82 Long term (current) use of aspirin; M79.661 Pain in right lower leg; Z79.02 Long term (current) use of antithrombotics/antiplatelets; Z79.899 Other long term (current) drug therapy; Z90.49 Acquired absence of other specified parts of digestive tract; Z87.898 Personal history of other specified conditions; Z82.49 Family history of ischemic heart disease and other diseases of the circulatory system; Z81.1 Family history of alcohol abuse and dependence; Z68.32 Body mass index [BMI] 32.0-32.9, adult
CPT/HCPCS: 93005 ×4; 99285; 36415 ×3; 82553 ×2; 83735; 85025; 80076; 80048 ×2; 84484 ×3; 80307; 85379; 83880; 93306; 71010; 78582; 93010 ×3; G0378 ×4; A9540; A9567; J3490 ×6; J3411; Q9969

== ENCOUNTER 2016-10-28 08:28 | Emergency (ER) | payer SELFPAY ==
[2016-10-28] MEDS ORDERED: ASPIRIN 81 MG TABLET, CHEWABLE PO ONE (08:33)
--- NOTE | 2016-10-28 08:42 | ER Document Report ---
ED General - General Stated Complaint: CHEST PAIN Time Seen by Provider: 10/28/16 08:33 Mode of Arrival: Medic Information source: Patient Notes: 41-year-old female history of anxiety depression vasospasms with heart catheterization 2 weeks ago at [facility] as well as recent admission and discharge 2 days prior presents with complaints of chest pain dizziness shortness of breath and her body jumping. Patient notes the chest pain similar to her previous chest pain. TRAVEL OUTSIDE OF THE [place] IN LAST 30 DAYS: No - HPI Onset: Just prior to arrival Onset/Duration: Sudden Quality of pain: Achy Severity: Mild Pain Level: 1 Associated symptoms: Chest pain, Shortness of breath Exacerbated by: Denies Relieved by: Denies Similar symptoms previously: Yes Recently seen / treated by doctor: Yes - Related Data Allergies/Adverse Reactions: diphenhydramine [From Benadryl] Allergy (Verified 10/14/16 19:44) lithium Allergy (Verified 10/14/16 19:44) Past Medical History - Social History Smoking Status: Current Every Day Smoker Cigarette use (# per day): Yes Chew tobacco use (# tins/day): No Smoking Education Provided: No Family History: Reviewed & Not Pertinent - Past Medical History Cardiac Medical History: Reports: Hx Heart Attack - Recently diagnosed. Neurological Medical History: Reports: Hx Seizures Renal/ Medical History: Denies: Hx Peritoneal Dialysis GI Medical History: Reports: Hx Hepatitis Psychiatric Medical History: Reports: Hx Anxiety, Hx Bipolar Disorder, Hx Depression Infectious Medical History: Reports: Hx Hepatitis Past Surgical History: Reports: Hx Appendectomy, Hx Tonsillectomy, Hx Tubal Ligation - Immunizations Hx Diphtheria, Pertussis, Tetanus Vaccination: Yes Review of Systems - Review of Systems Notes: REVIEW OF SYSTEMS: CONSTITUTIONAL : Denies fever, chills, or sweats. Denies recent illness. EENT: Denies eye, ear, throat, or mouth pain or symptoms. Denies nasal or sinus congestion or discharge. Denies throat, tongue, or mouth swelling or difficulty swallowing. CARDIOVASCULAR: Admits to chest RESPIRATORY: Denies cough, cold, or chest congestion. Denies shortness of breath, difficulty breathing, or wheezing. GASTROINTESTINAL: Denies abdominal pain or distention. Denies nausea, vomiting , or diarrhea. Denies blood in vomitus, stools, or per rectum. Denies black, tarry stools. Denies constipation. GENITOURINARY: Denies difficulty urinating, painful urination, burning, frequency, blood in urine, or discharge. FEMALE GENITOURINARY: Denies vaginal bleeding, heavy or abnormal periods, irregular periods. Denies vaginal discharge or odor. MUSCULOSKELETAL: Denies back or neck pain or stiffness. Denies joint pain or swelling. SKIN: Denies rash, lesions or sores. HEMATOLOGIC : Denies easy bruising or bleeding. LYMPHATIC: Denies swollen, enlarged glands. NEUROLOGICAL: Admits dizziness PSYCHIATRIC: Admits anxiety ALL OTHER SYSTEMS REVIEWED AND NEGATIVE. PHYSICAL EXAMINATION: GENERAL: Well-appearing, well-nourished and in no acute distress. HEAD: Atraumatic, normocephalic. EYES: Pupils equal round and reactive to light, extraocular movements intact, conjunctiva are normal. ENT: Nares patent, oropharynx clear without exudates. Moist mucous membranes. NECK: Normal range of motion, supple without lymphadenopathy LUNGS: Breath sounds clear to auscultation bilaterally and equal. No wheezes rales or rhonchi. HEART: Regular rate and rhythm without murmurs ABDOMEN: Soft, nontender, nondistended abdomen. No guarding, no rebound. No masses appreciated. Female : deferred Musculoskeletal: Normal range of motion, no pitting or edema. No cyanosis. NEUROLOGICAL: Cranial nerves grossly intact. Normal speech, normal gait. Normal sensory, motor exams PSYCH: Normal mood, normal affect. SKIN: Warm, Dry, normal turgor, no rashes or lesions noted. Dictation was performed using [employer] voice recognition software Physical Exam - Vital signs Vitals: Resp 18 10/28/16 08:30 Course - Re-evaluation Re-evalutation: 10/28/16 08:42 I believe patient's presentation is secondary to her vasospasms as well as anxiety. Lab work imaging pending 10/28/16 10:47 Patient's troponin has been noted to be trending down, this would be consistent with her presentation. 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 I have reevaluated this patient multiple times and no significant life threatening changes are noted. The patient and I have discussed the diagnosis and risks, and we agree with discharging home with close follow-up. We also discussed returning to the Emergency Department immediately if new or worsening symptoms occur. We have discussed the symptoms which are most concerning (e.g., bloody sputum, worsening pain or shortness of breath) that necessitate immediate return. - Vital Signs Vital signs: Temp Pulse Resp BP Pulse Ox 18 98 10/28/16 08:30 10/28/16 09:23 - Laboratory Result Diagrams: 10/28/16 09:52 10/28/16 09:52 Laboratory results interpreted by me: 10/28/16 10/28/16 09:52 09:52 WBC 12.2 H Hgb 11.9 L Hct 34.8 L RDW 14.7 H BUN 4 L Glucose 113 H - Diagnostic Test Radiology reviewed: Image reviewed, Reports reviewed - EKG Interpretation by Me EKG shows normal: Sinus rhythm, [place], Intervals, QRS Complexes When compared to previous EKG there are: Changes noted - Inverted T-wave those noted in V6 has since resolved Discharge - Discharge Clinical Impression: Elevated blood pressure reading, Anxiety Chest pain Qualifiers: Chest pain type: unspecified Qualified Code(s): R07.9 - Chest pain, unspecified Condition: Stable Disposition: HOME, SELF-CARE Instructions: Chest Pain of Unclear Cause ([facility]) Additional Instructions: Please follow-up with your plastic sheets finishing supervisor for reevaluation or return immediately if there are any other concerns
--- NOTE | 2016-10-28 09:12 | RADIOLOGY REPORT (SQ) ---
EXAM DESCRIPTION: CHEST SINGLE VIEW COMPLETED DATE/TIME: 10/28/2016 9:00 am REASON FOR STUDY: chest pain COMPARISON: 10/23/2016 EXAM PARAMETERS: NUMBER OF VIEWS: One view. TECHNIQUE: Single frontal radiographic view of the chest acquired. RADIATION DOSE: NA LIMITATIONS: None. FINDINGS: LUNGS AND PLEURA: No opacities, masses or pneumothorax. No pleural effusion. MEDIASTINUM AND HILAR STRUCTURES: No masses. Contour normal. HEART AND VASCULAR STRUCTURES: Heart normal in size. Normal vasculature. BONES: No acute findings. HARDWARE: None in the chest. OTHER: No other significant finding. IMPRESSION: NO ACUTE RADIOGRAPHIC FINDING IN THE CHEST. TECHNICAL DOCUMENTATION: JOB ID: [id number]
[2016-10-28 10:01] LABS: ABSOLUTE BASOPHILS # (AUTO) 0.1 10^3/uL (0.0-0.2); ABSOLUTE LYMPHOCYTES (AUTO) 3.2 10^3/uL (0.5-4.7); ABSOLUTE MONOCYTES (AUTO) 0.7 10^3/uL (0.1-1.4); ABSOLUTE NEUT (AUTO) 8.2 10^3/uL (1.7-8.2); BASOPHILS % (AUTO) 0.5 % (0-2); EOSINOPHILS % (AUTO) 0.3 % (0-6); HEMATOCRIT 34.8 % (36.0-47.0); HEMOGLOBIN 11.9 g/dL (12.0-15.5); HGB HCT DIFFERENCE 0.9; MEAN CORPUSCULAR HEMOGLOBIN 29.8 pg (27.0-33.4); MEAN CORPUSCULAR HGB CONC 34.2 g/dL (32.0-36.0); MEAN CORPUSCULAR VOLUME 87 fl (80-97); RED BLOOD COUNT 3.98 10^6/uL (3.72-5.28); RED CELL DISTRIBUTION WIDTH 14.7 % (11.5-14.0); SEGMENTED NEUTROPHILS % (AUTO) 67.2 % (42-78); WHITE BLOOD COUNT 12.2 10^3/uL (4.0-10.5)
[2016-10-28 10:23] LABS: ALANINE AMINOTRANSFERASE 41 U/L (9-52); ALBUMIN 3.8 g/dL (3.5-5.0); ALKALINE PHOSPHATASE 52 U/L (38-126); ANION GAP 11 (5-19); ASPARTATE AMINO TRANSFERASE 36 U/L (14-36); BILIRUBIN,DIRECT 0.4 mg/dL (0.0-0.4); BILIRUBIN,TOTAL 0.4 mg/dL (0.2-1.3); BLOOD UREA NITROGEN 4 mg/dL (7-20); CALCIUM 8.9 mg/dL (8.4-10.2); CARBON DIOXIDE 22 mmol/L (22-30); CHLORIDE 106 mmol/L (98-107); CREATINE KINASE 89 U/L (30-135); GLUCOSE 113 mg/dL (75-110); POTASSIUM 3.8 mmol/L (3.6-5.0); SODIUM 139.2 mmol/L (137-145); TOTAL PROTEIN 7.3 g/dL (6.3-8.2)
[2016-10-28 10:35] LABS: CREATINE KINASE MB 3.1 ng/mL (<4.55)
[2016-10-28 10:38] LABS: TROPONIN I 0.103 ng/mL
[2016-10-28 11:40] VITALS: BP 144/91
--- NOTE | 2016-10-29 07:49 | EKG REPORT ---
SEVERITY:- ABNORMAL ECG - SINUS RHYTHM ABNORMAL T, CONSIDER ISCHEMIA, ANT-LAT LEADS BORDERLINE PROLONGED QT INTERVAL : Confirmed by: Celso White MD 29-Oct-2016 07:48:26
== END 2016-10-28 11:40 | disposition home or self-care (01) ==
LOC: ER 08:28
DX: F41.9 Anxiety disorder, unspecified (principal); R03.0 Elevated blood-pressure reading, without diagnosis of hypertension
CPT/HCPCS: 36415; 71010; 80053; 82550; 82553; 84484; 85025; 93005; 93010; 99285

== ENCOUNTER 2016-12-03 13:21 | Emergency (ER) | payer SELFPAY ==
[2016-12-03] MEDS ORDERED: NORMAL SALINE 1000 ML 1,000 ML IV ONE (13:35)
--- NOTE | 2016-12-03 13:39 | ER Document Report ---
ED Psych Disorder / Suicide - General Mode of Arrival: Medic Information source: Patient TRAVEL OUTSIDE OF THE [place] IN LAST 30 DAYS: No <NIKITA WEINER - Last Filed: 12/03/16 18:14> <JAYANT SMITH - Last Filed: 12/03/16 21:01> - General Stated Complaint: POSSIBLE OVERDOSE Time Seen by Provider: 12/03/16 13:27 Notes: 41-year-old female took benztropine, clonidine, and prazosin intentional overdose of unknown amounts of each pill because of neck pain and left jaw pain. She thought if she took those that it would knock her out. She has a history of schizophrenia and bipolar and had a suicide gesture in the past. She is known to the psych staff at [facility]. She was given 50 g of activated charcoal orally en route by EMS. (NIKITA WEINER) - Related Data Allergies/Adverse Reactions: diphenhydramine [From Benadryl] Allergy (Verified 10/14/16 19:44) lithium Allergy (Verified 10/14/16 19:44) Home Medications: Current Home Medications Clonazepam [Klonopin 1 mg Tablet] 1 mg PO BIDP PRN 12/03/16 [History] Clonidine HCl [Catapres 0.3 mg Tablet] 0.3 mg PO QHS 12/03/16 [History] Past Medical History - General Information source: Patient - Social History Smoking Status: Current Every Day Smoker Frequency of alcohol use: None Drug Abuse: None Lives with: Family Family History: Reviewed & Not Pertinent - Past Medical History Cardiac Medical History: Reports: Hx Heart Attack - Recently diagnosed. Neurological Medical History: Reports: Hx Seizures Renal/ Medical History: Denies: Hx Peritoneal Dialysis GI Medical History: Reports: Hx Hepatitis Psychiatric Medical History: Reports: Hx Anxiety, Hx Bipolar Disorder, Hx Depression, Hx Schizophrenia Infectious Medical History: Reports: Hx Hepatitis Past Surgical History: Reports: Hx Appendectomy, Hx Tonsillectomy, Hx Tubal Ligation - Immunizations Hx Diphtheria, Pertussis, Tetanus Vaccination: Yes <NIKITA WEINER - Last Filed: 12/03/16 18:14> Review of Systems - Review of Systems Constitutional: No symptoms reported EENT: No symptoms reported Cardiovascular: No symptoms reported Respiratory: No symptoms reported Gastrointestinal: No symptoms reported Genitourinary: No symptoms reported Female Genitourinary: No symptoms reported Musculoskeletal: No symptoms reported Skin: No symptoms reported Hematologic/Lymphatic: No symptoms reported Neurological/Psychological: See HPI <NIKITA WEINER - Last Filed: 12/03/16 18:14> Physical Exam - Vital signs Interpretation: Normal - General General appearance: Appears well, Alert In distress: None - HEENT Head: Normocephalic, Atraumatic Eyes: Normal Conjunctiva: Normal Extraocular movements intact: Yes Pupils: PERRL Mucous membranes: Normal Neck: Supple. No: Lymphadenopathy - Respiratory Respiratory status: No respiratory distress Chest status: Nontender Breath sounds: Normal Chest palpation: Normal - Cardiovascular Rhythm: Regular Heart sounds: Normal auscultation Murmur: No - Abdominal Inspection: Normal Distension: No distension Bowel sounds: Normal Tenderness: Nontender Organomegaly: No organomegaly - Back Back: Normal, Nontender - Extremities General upper extremity: Normal inspection, Nontender, Normal color, Normal ROM , Normal temperature General lower extremity: Normal inspection, Nontender, Normal color, Normal ROM , Normal temperature, Normal weight bearing. No: Jose's sign - Neurological Neuro grossly intact: Yes Cognition: Normal Orientation: AAOx4 Carol Coma Scale Eye Opening: Spontaneous [place] Coma Scale Verbal: Oriented [place] Coma Scale Motor: Obeys Commands [place] Coma Scale Total: 15 Speech: Normal Motor strength normal: LUE, RUE, LLE, RLE Sensory: Normal - Psychological Associated symptoms: Flat affect, Irritable - Skin Skin Temperature: Warm Skin Moisture: Dry Skin Color: Normal Skin irregularity: negative: Rash <NIKITA WEINER - Last Filed: 12/03/16 18:14> - Vital signs Vitals: Temp Pulse Resp BP Pulse Ox 97.4 F 105 H 16 122/81 100 12/03/16 13:25 12/03/16 13:25 12/03/16 13:25 12/03/16 13:25 12/03/16 13:25 Course - Laboratory Result Diagrams: 12/03/16 13:27 12/03/16 13:27 <NIKITA WEINER - Last Filed: 12/03/16 18:14> - Laboratory Result Diagrams: 12/03/16 13:27 12/03/16 20:05 <JAYANT SMITH - Last Filed: 12/03/16 21:01> - Re-evaluation Re-evalutation: 12/03/16 13:28 called poisen control, pt took clonidine 0.3mg ? amount, Prazosin 1mg ? amount, and benztropine mes 1mg ? amount 30 minutes prior to arrival, now she states she took them to try to knock herself out due to left jaw and neck pain. 12/03/16 13:59 qt interval prolonged, dr. goddard rec 25meq sodium bicarb and then repeat the ekg 30 minutes after. 12/03/16 15:11 The second EKG shows a QTc interval of 525 the first was 521. The QRS is 0.08 I called poison control back and she recommended replacing potassium and magnesium that she does not need any sodium bicarb because that only helps with a QRS is elongated. I will continue to monitor the patient's for 8 hours as initially recommended. She is not to receive any Haldol or Geodon which can elongate the QT interval. Dr. Goddard signed IVC paperwork and Dr. Knapp willl assume as consultee for this pt. 12/03/16 18:14 [place], diet tratee ordered (NIKITA WEINER) 12/03/16 20:59 EKG unchanged from prior. Magnesium and potassium normalized. Patient remains well appearing on re-evaluation. Urinalysis does indicate a significant urinary tract infection with positive nitrites and large amount of leukocyte esterase, on questioning patient states that she frequently gets urinary tract infections and she has been having dysuria. She denies fever or chills. She denies flank pain. No significant hematuria. She is not tachycardic, hypotensive, or febrile. Giving a dose of Rocephin and then will transfer to Keflex p.o. which will be ordered on schedule pending psychiatric evaluation. Discussed with Dr. Zaldivar, patient is medically cleared. (JAYANT SMITH) - Vital Signs Vital signs: Temp Pulse Resp BP Pulse Ox 97.4 F 105 H 11 L 134/73 H 97 12/03/16 13:25 12/03/16 13:25 12/03/16 18:01 12/03/16 18:01 12/03/16 18:01 - Laboratory Laboratory results interpreted by me: 12/03/16 12/03/16 12/03/16 13:27 13:27 13:27 WBC 12.0 H RDW 14.8 H Potassium 3.3 L Chloride 110 H Carbon Dioxide 20 L Est GFR (Non-Af Amer) 57 L Glucose 151 H Magnesium 1.5 L Direct Bilirubin 0.5 H Urine Protein Urine Ketones Urine Nitrite Urine Urobilinogen Ur Leukocyte Esterase Salicylates < 1.0 L Acetaminophen < 10 L 12/03/16 12/03/16 14:04 20:05 WBC RDW Potassium Chloride 109 H Carbon Dioxide Est GFR (Non-Af Amer) Glucose Magnesium Direct Bilirubin Urine Protein 100 H Urine Ketones 20 H Urine Nitrite POSITIVE H Urine Urobilinogen 4.0 H Ur Leukocyte Esterase LARGE H Salicylates Acetaminophen Discharge <NIKITA WEINER - Last Filed: 12/03/16 18:14> <JAYANT SMITH - Last Filed: 12/03/16 21:01> - Discharge Referrals: LOCALMD,NO [Primary Care Provider] - Follow up as needed
[2016-12-03 13:44] LABS: ABSOLUTE BASOPHILS # (AUTO) 0.1 10^3/uL (0.0-0.2); ABSOLUTE MONOCYTES (AUTO) 0.9 10^3/uL (0.1-1.4); BASOPHILS % (AUTO) 0.6 % (0-2); EOSINOPHILS % (AUTO) 0.2 % (0-6); HEMATOCRIT 36.9 % (36.0-47.0); HEMOGLOBIN 12.5 g/dL (12.0-15.5); HGB HCT DIFFERENCE 0.6; LYMPHOCYTES % (AUTO) 24.6 % (13-45); MEAN CORPUSCULAR HEMOGLOBIN 28.6 pg (27.0-33.4); MEAN CORPUSCULAR HGB CONC 33.9 g/dL (32.0-36.0); MEAN CORPUSCULAR VOLUME 84 fl (80-97); MONOCYTES % (AUTO) 7.7 % (3-13); RED BLOOD COUNT 4.38 10^6/uL (3.72-5.28); RED CELL DISTRIBUTION WIDTH 14.8 % (11.5-14.0); SEGMENTED NEUTROPHILS % (AUTO) 66.9 % (42-78)
[2016-12-03] MEDS ORDERED: SODIUM BICARBONATE 8.4% INJ 50 MEQ/50 ML DISP.SYRIN IV ONE (13:50)
[2016-12-03 14:02] LABS: ALANINE AMINOTRANSFERASE 20 U/L (9-52); ALBUMIN 4.1 g/dL (3.5-5.0); ALKALINE PHOSPHATASE 67 U/L (38-126); ANION GAP 15 (5-19); ASPARTATE AMINO TRANSFERASE 25 U/L (14-36); BILIRUBIN,DIRECT 0.5 mg/dL (0.0-0.4); BILIRUBIN,TOTAL 0.8 mg/dL (0.2-1.3); BLOOD UREA NITROGEN 12 mg/dL (7-20); CALCIUM 9.7 mg/dL (8.4-10.2); CARBON DIOXIDE 20 mmol/L (22-30); CHLORIDE 110 mmol/L (98-107); CREATININE RESULT 1.07 mg/dL (0.52-1.25); GLUCOSE 151 mg/dL (75-110); POTASSIUM 3.3 mmol/L (3.6-5.0); SODIUM 144.9 mmol/L (137-145); TOTAL PROTEIN 7.8 g/dL (6.3-8.2)
[2016-12-03 14:47] LABS: URINE BARBITURATES SCREEN NEGATIVE; URINE METHADONE SCREEN NEGATIVE; URINE OPIATES LOW NEGATIVE; URINE PHENCYCLIDINE SCREEN NEGATIVE
[2016-12-03 14:48] LABS: APPEARANCE,URINE CLOUDY; BILIRUBIN,URINE NEGATIVE (NEGATIVE); GLUCOSE, URINE NEGATIVE (NEGATIVE); KETONES,URINE 20 mg/dL (NEGATIVE); LEUKOCYTE ESTERASE,URINE LARGE (NEGATIVE); NITRITE,URINE POSITIVE (NEGATIVE); PROTEIN,URINE 100 mg/dL (NEGATIVE); URINE SPECIFIC GRAVITY 1.025
[2016-12-03] MEDS ORDERED: POTASSIUM CHLORIDE 20 MEQ/15 ML UDCUP PO ONE (14:48)
[2016-12-03] MEDS ORDERED: MAGNESIUM SULFATE/D5W 1 GM/100 ML RTUPB IV ONE (14:48)
[2016-12-03] MEDS ORDERED: 1/2 NORMAL SALINE 1,000 ML with POTASSIUM CHLORIDE 20 MEQ IV PRN ×2 (15:00)
[2016-12-03] MEDS ORDERED: POTASSI CL 20 MEQ/1/2NS 1L 1000 ML IV ONE (16:00)
--- NOTE | 2016-12-03 16:24 | EKG REPORT ---
SEVERITY:- ABNORMAL ECG - SINUS RHYTHM ABNORMAL T, CONSIDER ISCHEMIA, ANT-LAT LEADS PROLONGED QT INTERVAL : Confirmed by: Celso White MD 03-Dec-2016 16:23:05
--- NOTE | 2016-12-03 16:24 | EKG REPORT ---
SEVERITY:- ABNORMAL ECG - SINUS RHYTHM SHORT NM INTERVAL, ACCELERATED AV CONDUCTION INFERIOR Q WAVES, PROBABLY NORMAL VARIATION ABNORMAL T, CONSIDER ISCHEMIA, ANT-LAT LEADS PROLONGED QT INTERVAL : Confirmed by: Celso White MD 03-Dec-2016 16:23:31
[2016-12-03] MEDS ORDERED: ACETAMINOPHEN 325 MG TABLET PO ONE (19:07)
[2016-12-03] MEDS ORDERED: IBUPROFEN 400 MG TABLET PO ONE (19:12)
[2016-12-03] MEDS ORDERED: CEFTRIAXONE 1 GM/D5W RTU 1 GM/50 ML RTUPB IV ONE (19:48)
[2016-12-03 20:27] LABS: ANION GAP 13 (5-19); BLOOD UREA NITROGEN 10 mg/dL (7-20); CALCIUM 9.4 mg/dL (8.4-10.2); CARBON DIOXIDE 22 mmol/L (22-30); CHLORIDE 109 mmol/L (98-107); CREATININE RESULT 0.83 mg/dL (0.52-1.25); GLUCOSE 103 mg/dL (75-110); MAGNESIUM 1.8 mg/dL (1.6-2.3); POTASSIUM 3.7 mmol/L (3.6-5.0); SODIUM 143.8 mmol/L (137-145)
[2016-12-03] MEDS ORDERED: LORAZEPAM INJ 2 MG/1 ML VIAL IM ONE (23:31)
--- NOTE | 2016-12-04 07:23 | ER Document Report ---
ED Psych Disorder / Suicide - General Chief Complaint: Possible Overdose Stated Complaint: POSSIBLE OVERDOSE Time Seen by Provider: 12/03/16 13:27 Mode of Arrival: Medic Information source: Patient, [facility] Records Cannot obtain history due to: Altered mental status TRAVEL OUTSIDE OF THE [place] IN LAST 30 DAYS: No - HPI Patient complains to provider of: Overdose, Suicidal ideation, Suicidal plan Onset was: Cannot confirm Suicide Risk Factors: Bipolar, Depressed, Lack of social support, Substance abuse - cocaine, per history Normal mood: No Similar symptoms previously: Yes Recently seen / treated by doctor: No - unknown Notes: 12/04/2016 Conducted check in with patient who is a 41 year old female who presented yesterday for a polypharm overdose. Patient states this morning that she was not trying to kill herself. She states she just wanted to go to sleep. Challenged patient in regards to the amount of pills she allegedly took, suggesting otherwise. Discussed with patient her recent drug use. She maintains that her last use of cocaine and thc was night. Patient states there was a bunch of people and "we used a lot." Patient states she does not want to by suicide. Patient reports she is followed by [facility], and was last seen a few months ago. Patient states she lives with "Kam" and provides verbal consent to contact him for collateral information. Kam, states: he last spoke with her yesterday, or the day before. He states she "seemed ok." He states the patient did not talk about suicide, but stated she was talking about not having a place to go, and was staying at a hotel. He states she did mention that she needed to return to see her psychiatrist, but he reports he is unsure of her last visit. [facility]: Patient has not been since since July. Can walk in today for assessment. Patient is A&O. Mood is euthymic with normal affect. Patient denies suicidal/ homicidal ideations, intent, plan, or means. Patient dnies A/V H; delusions note noted. Thought processes were organized, but guarded. Conversaitonal speech was within normal limits for rate, tone, and prosody. Intellectual abilities were estimated within average range. Attention and focus were fair. Insight, judgment, and impulse control were poor. 292.9 (F14.99) Unspecified Cocaine Disorder 296.80 (F31.9) Unspecified Bipolar and Related Disorder by History Impression/Plan: Recommendation to rescind IVC. Patient does not meet IVC criteria. She denied current SI/HI and there is no observed psychosis. Her lab work is incongruent with an overdose of 120 radha pills as her vitals were considered stable throughout her visit, etc. Patient acknowledges drug abuse over the weekend (cocaine and marijuana). Patient reportedly has no stable housing, has not followed up with her provider since July. Additionally, the [facility] [address] [facility] with multiple medications called into her pharmacy; however, she did not fill/belt picker. Patient is recommended to walk into [facility] today to reenter outpatient services. Patient was provided with a list of resources, to also include homeless [facility] resource guide. I consulted with Dr. Maravilla in regards to the care and management of this patient. ED MD is in agreement with disposition and recommendations. 12/03/2016 Patient is a 41 year old female who presents via EMS for polypharm OD, allegedly of 100+ pills. Intent is unknown at this time, as she has reported multiple reasons to the provider and nursing staff, to include, being tired of neck pain, attention seeking, and wanting to . Patient is known to this department for prior episodes of similar etiology. Attempted to speak with patient; however, during evaluation she was groggy and somnolent. She struggled to remain awake. Will attempt at a later time. IVC has been petitioned as her intent is unknown at this time. - Related Data Allergies/Adverse Reactions: diphenhydramine [From Benadryl] Allergy (Verified 10/14/16 19:44) lithium Allergy (Verified 10/14/16 19:44) Home Medications: Current Home Medications Clonazepam [Klonopin 1 mg Tablet] 1 mg PO BIDP PRN 12/03/16 [History] Clonidine HCl [Catapres 0.3 mg Tablet] 0.3 mg PO QHS 12/03/16 [History] Past Medical History - General Information source: [facility] - Social History Smoking Status: Current Every Day Smoker Chew tobacco use (# tins/day): No Frequency of alcohol use: Social Drug Abuse: Cocaine, Marijuana Lives with: Family Family History: Reviewed & Not Pertinent Patient has suicidal ideation: No - patient denies wanting to by suicide Patient has homicidal ideation: No - Past Medical History Cardiac Medical History: Reports: Hx Heart Attack - Recently diagnosed. Neurological Medical History: Reports: Hx Seizures Renal/ Medical History: Denies: Hx Peritoneal Dialysis GI Medical History: Reports: Hx Hepatitis Psychiatric Medical History: Reports: Hx Anxiety, Hx Bipolar Disorder, Hx Depression, Hx Schizophrenia Infectious Medical History: Reports: Hx Hepatitis Past Surgical History: Reports: Hx Appendectomy, Hx Tonsillectomy, Hx Tubal Ligation - Immunizations Hx Diphtheria, Pertussis, Tetanus Vaccination: Yes Physical Exam - Vital signs Vitals: Temp Pulse Resp BP Pulse Ox 97.4 F 105 H 16 122/81 100 12/03/16 13:25 12/03/16 13:25 12/03/16 13:25 12/03/16 13:25 12/03/16 13:25 Course - Vital Signs Vital signs: Temp Pulse Resp BP Pulse Ox 98.8 F 92 18 153/73 H 88 L 12/03/16 23:39 12/04/16 05:02 12/04/16 05:02 12/04/16 05:02 12/04/16 05:02 - Laboratory Result Diagrams: 12/03/16 13:27 12/03/16 20:05 Laboratory results interpreted by me: 12/03/16 12/03/16 12/03/16 13:27 13:27 13:27 WBC 12.0 H RDW 14.8 H Potassium 3.3 L Chloride 110 H Carbon Dioxide 20 L Est GFR (Non-Af Amer) 57 L Glucose 151 H Magnesium 1.5 L Direct Bilirubin 0.5 H Urine Protein Urine Ketones Urine Nitrite Urine Urobilinogen Ur Leukocyte Esterase Salicylates < 1.0 L Acetaminophen < 10 L 12/03/16 12/03/16 14:04 20:05 WBC RDW Potassium Chloride 109 H Carbon Dioxide Est GFR (Non-Af Amer) Glucose Magnesium Direct Bilirubin Urine Protein 100 H Urine Ketones 20 H Urine Nitrite POSITIVE H Urine Urobilinogen 4.0 H Ur Leukocyte Esterase LARGE H Salicylates Acetaminophen Discharge - Discharge Clinical Impression: Cocaine abuse Overdose Qualifiers: Encounter type: initial encounter Injury intent: accidental or unintentional Qualified Code(s): T50.901A - Poisoning by unspecified drugs, medicaments and biological substances, accidental (unintentional), initial encounter Condition: Stable Disposition: HOME, SELF-CARE Additional Instructions: Cocaine Abuse Cocaine causes many dangerous medical problems. Problems can occur even with "usual" amounts. Cocaine affects judgement, creating a sense of invulnerability. Cocaine users often make bad decisions that seem "great" at the time. Most cocaine users eventually will be hurt by bad job performance, damaged personal relations, crime, and unsafe sexual practices. Toxic effects of cocaine can include seizures, hallucinations, delusions, high blood pressure, heart damage, or sudden . There's always the risk of a "bad batch." But heart attacks, brain hemorrhages, or cardiac arrest can occur unpredictably even with "normal" use. Injection of cocaine is risky for abscesses, endocarditis (heart infection) , pneumonia, and AIDS. Withdrawal from cocaine often causes anxiety and drug cravings. Some users become paranoid and psychotic. Many treatment programs are available, but you must make the decision to quit. Medication can be prescribed to control the symptoms of cocaine toxicity (beta blockers or benzodiazepines). Withdrawal symptoms may require tranquilizers. Please stop doing drugs. Please follow up with your provider as walk in, post discharge from this Department. You have been provided a list of resources to assist you, to include the [employer] guide. Please take only your medications as prescribed. Please return if your symptoms worsen. Referrals: [facility] ZAMORANO [NO LOCAL MD] - Follow up as needed [facility] [Provider Group] - 12/04/16 (Please walk in to be seen today for assessment for services)
--- NOTE | 2016-12-04 08:06 | EKG REPORT ---
SEVERITY:- ABNORMAL ECG - SINUS RHYTHM ABNORMAL T, CONSIDER ISCHEMIA, ANT-LAT LEADS PROLONGED QT INTERVAL : Confirmed by: Bharati Camara MD 04-Dec-2016 08:06:02
--- NOTE | 2016-12-04 09:41 | ER Document Report ---
Doctor's Note Notes: 12/04/16 09:39 Patient resting comfortably on stretcher, no complaints at this time, she denies that taking all the pills yesterday evening was a suicide attempt, stating that she was just trying to numb her pain, chart was reviewed including labs and vital signs, patient did have QT prolongation on her EKG, otherwise vital signs have been remained relatively stable, patient has been evaluated by mental health team, awaiting recommendations for disposition 12/04/16 10:53 Patient continues to deny that her intent was suicidal, stating that she was just trying to numb her pain, symptoms appear to be more substance abuse then mental health related, patient's drug screen was positive for cocaine and marijuana, patient was discharged with instructions for follow-up and advised to return if symptoms worsen, patient acknowledges understanding and agreement with this plan 12/04/16 10:54 Discharge - Discharge Clinical Impression: Cocaine abuse Overdose Qualifiers: Encounter type: initial encounter Injury intent: accidental or unintentional Qualified Code(s): T50.901A - Poisoning by unspecified drugs, medicaments and biological substances, accidental (unintentional), initial encounter Condition: Stable Disposition: HOME, SELF-CARE Additional Instructions: Cocaine Abuse Cocaine causes many dangerous medical problems. Problems can occur even with "usual" amounts. Cocaine affects judgement, creating a sense of invulnerability. Cocaine users often make bad decisions that seem "great" at the time. Most cocaine users eventually will be hurt by bad job performance, damaged personal relations, crime, and unsafe sexual practices. Toxic effects of cocaine can include seizures, hallucinations, delusions, high blood pressure, heart damage, or sudden . There's always the risk of a "bad batch." But heart attacks, brain hemorrhages, or cardiac arrest can occur unpredictably even with "normal" use. Injection of cocaine is risky for abscesses, endocarditis (heart infection) , pneumonia, and AIDS. Withdrawal from cocaine often causes anxiety and drug cravings. Some users become paranoid and psychotic. Many treatment programs are available, but you must make the decision to quit. Medication can be prescribed to control the symptoms of cocaine toxicity (beta blockers or benzodiazepines). Withdrawal symptoms may require tranquilizers. Please stop doing drugs. Please follow up with your provider as walk in, post discharge from this Department. You have been provided a list of resources to assist you, to include the [employer] guide. Please take only your medications as prescribed. Please return if your symptoms worsen. Referrals: [facility] [Provider Group] - 12/04/16 (Please walk in to be seen today for assessment for services) JAUN,NO [NO LOCAL MD] - Follow up as needed
[2016-12-04] MEDS ORDERED: CEPHALEXIN 500 MG CAPSULE PO SCH (10:00)
[2016-12-04 10:57] VITALS: BP 140/87
== END 2016-12-04 11:16 | disposition home or self-care (01) ==
LOC: ER 13:21
DX: F14.99 Cocaine use, unspecified with unspecified cocaine-induced disorder (principal); T42.8X1A Poisoning by antiparkinsonism drugs and other central muscle-tone depressants, accidental (unintentional), initial encounter; T46.5X1A Poisoning by other antihypertensive drugs, accidental (unintentional), initial encounter; T44.6X1A Poisoning by alpha-adrenoreceptor antagonists, accidental (unintentional), initial encounter; M54.2 Cervicalgia; R68.84 Jaw pain; F17.200 Nicotine dependence, unspecified, uncomplicated; F31.9 Bipolar disorder, unspecified; I25.2 Old myocardial infarction; Z98.51 Tubal ligation status
CPT/HCPCS: 93005; 99285; 96372; 96361; 96365; 96367; 36415; 87086; 80307 ×4; 83735; 84703; 85025; 80048; 80053; 81001; 93010; J3480; J3490 ×2; J2060; J3475; J7030; J0696

== ENCOUNTER 2017-02-11 20:44 | Emergency (ER) | payer SELFPAY ==
[2017-02-11 21:52] VITALS: BP 152/93
[2017-02-11 23:41] LABS: ABSOLUTE BASOPHILS # (AUTO) 0.1 10^3/uL (0.0-0.2); ABSOLUTE LYMPHOCYTES (AUTO) 2.8 10^3/uL (0.5-4.7); ABSOLUTE MONOCYTES (AUTO) 1.3 10^3/uL (0.1-1.4); ABSOLUTE NEUT (AUTO) 10.6 10^3/uL (1.7-8.2); BASOPHILS % (AUTO) 0.4 % (0-2); HEMATOCRIT 37.2 % (36.0-47.0); HEMOGLOBIN 12.4 g/dL (12.0-15.5); LYMPHOCYTES % (AUTO) 19.3 % (13-45); MEAN CORPUSCULAR HEMOGLOBIN 28.1 pg (27.0-33.4); MEAN CORPUSCULAR HGB CONC 33.3 g/dL (32.0-36.0); MEAN CORPUSCULAR VOLUME 84 fl (80-97); MONOCYTES % (AUTO) 8.6 % (3-13); RED BLOOD COUNT 4.41 10^6/uL (3.72-5.28); RED CELL DISTRIBUTION WIDTH 15.6 % (11.5-14.0); SEGMENTED NEUTROPHILS % (AUTO) 71.7 % (42-78); WHITE BLOOD COUNT 14.7 10^3/uL (4.0-10.5)
[2017-02-12 00:11] LABS: ALANINE AMINOTRANSFERASE 34 U/L (9-52); ALBUMIN 4.3 g/dL (3.5-5.0); ALKALINE PHOSPHATASE 52 U/L (38-126); ANION GAP 13 (5-19); ASPARTATE AMINO TRANSFERASE 20 U/L (14-36); BILIRUBIN,DIRECT 0.4 mg/dL (0.0-0.4); BILIRUBIN,TOTAL 0.4 mg/dL (0.2-1.3); BLOOD UREA NITROGEN 13 mg/dL (7-20); CALCIUM 9.8 mg/dL (8.4-10.2); CARBON DIOXIDE 30 mmol/L (22-30); CHLORIDE 96 mmol/L (98-107); CREATINE KINASE 24 U/L (30-135); CREATININE RESULT 0.83 mg/dL (0.52-1.25); GLUCOSE 90 mg/dL (75-110); POTASSIUM 3.5 mmol/L (3.6-5.0); SODIUM 139.1 mmol/L (137-145); TOTAL PROTEIN 7.8 g/dL (6.3-8.2)
[2017-02-12 01:15] LABS: CREATINE KINASE MB < 0.22 ng/mL (<4.55); TROPONIN I < 0.012 ng/mL
[2017-02-12 01:30] LABS: BILIRUBIN,URINE NEGATIVE (NEGATIVE); GLUCOSE, URINE NEGATIVE (NEGATIVE); KETONES,URINE TRACE mg/dL (NEGATIVE); LEUKOCYTE ESTERASE,URINE LARGE (NEGATIVE); NITRITE,URINE NEGATIVE (NEGATIVE); PROTEIN,URINE 100 mg/dL (NEGATIVE); URINE SPECIFIC GRAVITY 1.031
[2017-02-12 01:31] LABS: APPEARANCE,URINE SLIGHTLY-CLOUDY
[2017-02-12 01:35] LABS: BACTERIA,URINE 4+ /HPF; RBC,URINE 0-1 /HPF
== END 2017-02-12 01:11 | disposition left against medical advice (07) ==
LOC: ER 20:44
DX: Z53.21 Procedure and treatment not carried out due to patient leaving prior to being seen by health care provider (principal); R11.10 Vomiting, unspecified; R51 Headache
CPT/HCPCS: 36415; 80053; 81001; 81025; 82550; 82553; 83690; 84484; 85025

== ENCOUNTER 2017-03-27 11:59 | Emergency (ER) | payer SELFPAY ==
[2017-03-27] MEDS ORDERED: PREDNISONE 20 MG TABLET PO ONE (12:51)
[2017-03-27] MEDS ORDERED: IPRATROPIUM/ALBUTEROL 0.5-2.5 MG/3 ML AMPUL NEB ONE (12:51)
--- NOTE | 2017-03-27 12:55 | ER Document Report ---
ED Medical Screen (RME) - General TRAVEL OUTSIDE OF THE [place] IN LAST 30 DAYS: No <ANNY GREENBERG - Last Filed: 03/27/17 12:53> - General Mode of Arrival: Ambulatory Information source: Patient <NIKITA WEINER - Last Filed: 03/27/17 15:07> - General Chief Complaint: Cough Stated Complaint: WHEEZING Time Seen by Provider: 03/27/17 12:46 Notes: 41-year-old female patient for a history of cough wheezes, congestion, sore throat. Chest hurts when she coughs. Sinus drainage. Also has vaginal bleeding for 15 days and passing clots. Last normal menstrual period was 2016, by dates this would put her about 3 days late starting this. And it has been heavy the entire 2 weeks and now passing clots. She also complains of easy bruising and weight loss but when asked when this started she states "I do not know". I have greeted and performed a rapid initial assessment of this patient. A comprehensive ED assessment and evaluation of the patient, analysis of test results and completion of the medical decision making process will be conducted by additional ED providers. (ANNY GREENBERG) - Related Data Allergies/Adverse Reactions: diphenhydramine [From Benadryl] Allergy (Verified 03/27/17 12:04) lithium Allergy (Verified 03/27/17 12:04) Past Medical History - Social History Chew tobacco use (# tins/day): No Frequency of alcohol use: Social Drug Abuse: Cocaine - Past Medical History Cardiac Medical History: Reports: Hx Heart Attack - Recently diagnosed. Neurological Medical History: Reports: Hx Seizures Renal/ Medical History: Denies: Hx Peritoneal Dialysis GI Medical History: Reports: Hx Hepatitis Psychiatric Medical History: Reports: Hx Anxiety, Hx Bipolar Disorder, Hx Depression, Hx Schizophrenia Infectious Medical History: Reports: Hx Hepatitis Past Surgical History: Reports: Hx Appendectomy, Hx Tonsillectomy, Hx Tubal Ligation - Immunizations Hx Diphtheria, Pertussis, Tetanus Vaccination: Yes <ANNY GREENBERG - Last Filed: 03/27/17 12:53> - Vital signs Vitals: Temp Pulse Resp BP Pulse Ox 98.7 F 86 18 163/106 H 97 03/27/17 12:11 03/27/17 12:11 03/27/17 12:11 03/27/17 12:11 03/27/17 12:11 Course - Laboratory Result Diagrams: 03/27/17 12:58 03/27/17 12:58 <NIKITA WEINER - Last Filed: 03/27/17 15:07> - Vital Signs Vital signs: Temp Pulse Resp BP Pulse Ox 98.7 F 86 18 163/106 H 97 03/27/17 12:11 03/27/17 12:11 03/27/17 12:11 03/27/17 12:11 03/27/17 12:11 - Laboratory Laboratory results interpreted by me: 03/27/17 03/27/17 03/27/17 12:58 12:58 12:58 RDW 15.2 H BUN 6 L Glucose 136 H AST 39 H Urine Protein 100 H Urine Blood LARGE H Urine Urobilinogen 2.0 H Ur Leukocyte Esterase MODERATE H
[2017-03-27 13:18] LABS: ABSOLUTE LYMPHOCYTES (AUTO) 1.9 10^3/uL (0.5-4.7); ABSOLUTE MONOCYTES (AUTO) 0.4 10^3/uL (0.1-1.4); BASOPHILS % (AUTO) 0.6 % (0-2); EOSINOPHILS % (AUTO) 0.5 % (0-6); HEMATOCRIT 40.2 % (36.0-47.0); HEMOGLOBIN 13.3 g/dL (12.0-15.5); LYMPHOCYTES % (AUTO) 35.1 % (13-45); MEAN CORPUSCULAR HEMOGLOBIN 27.7 pg (27.0-33.4); MEAN CORPUSCULAR HGB CONC 33.2 g/dL (32.0-36.0); MEAN CORPUSCULAR VOLUME 83 fl (80-97); MONOCYTES % (AUTO) 7.9 % (3-13); PLATELET COUNT 327 10^3/uL (150-450); RED BLOOD COUNT 4.81 10^6/uL (3.72-5.28); RED CELL DISTRIBUTION WIDTH 15.2 % (11.5-14.0); SEGMENTED NEUTROPHILS % (AUTO) 55.9 % (42-78); TOTAL CELLS COUNTED % (AUTO) 100 %; WHITE BLOOD COUNT 5.4 10^3/uL (4.0-10.5)
[2017-03-27 13:28] LABS: INTERNATIONAL RATION (INR) 0.92
[2017-03-27 13:40] LABS: ALANINE AMINOTRANSFERASE 39 U/L (9-52); ALBUMIN 4.1 g/dL (3.5-5.0); ALKALINE PHOSPHATASE 61 U/L (38-126); ANION GAP 15 (5-19); ASPARTATE AMINO TRANSFERASE 39 U/L (14-36); BILIRUBIN,DIRECT 0.3 mg/dL (0.0-0.4); BILIRUBIN,TOTAL 0.4 mg/dL (0.2-1.3); BLOOD UREA NITROGEN 6 mg/dL (7-20); CALCIUM 9.3 mg/dL (8.4-10.2); CARBON DIOXIDE 24 mmol/L (22-30); CHLORIDE 104 mmol/L (98-107); GLUCOSE 136 mg/dL (75-110); POTASSIUM 3.7 mmol/L (3.6-5.0); SODIUM 142.6 mmol/L (137-145); TOTAL PROTEIN 7.7 g/dL (6.3-8.2)
[2017-03-27 13:43] LABS: BILIRUBIN,URINE NEGATIVE (NEGATIVE); GLUCOSE, URINE NEGATIVE (NEGATIVE); KETONES,URINE NEGATIVE (NEGATIVE); LEUKOCYTE ESTERASE,URINE MODERATE (NEGATIVE); NITRITE,URINE NEGATIVE (NEGATIVE); PROTEIN,URINE 100 mg/dL (NEGATIVE); URINE SPECIFIC GRAVITY 1.011
[2017-03-27 13:44] LABS: APPEARANCE,URINE TURBID; COLOR,URINE RED
--- NOTE | 2017-03-27 14:09 | RADIOLOGY REPORT (SQ) ---
EXAM DESCRIPTION: CHEST PA/LAT COMPLETED DATE/TIME: 03/27/2017 1:26 pm REASON FOR STUDY: Cough, wheezing, pleuritic chest pain COMPARISON: 10/15/2016 NUMBER OF VIEWS: Two view. TECHNIQUE: Frontal and lateral radiographic views of the chest acquired. LIMITATIONS: None. FINDINGS: LUNGS AND PLEURA: No opacities, masses or pneumothorax. No pleural effusion. MEDIASTINUM AND HILAR STRUCTURES: No masses or contour abnormalities. HEART AND VASCULATURE: Heart normal size. No evidence for failure. BONY STRUCTURES: No acute findings. HARDWARE: None. OTHER: No other significant finding. IMPRESSION: NO SIGNIFICANT RADIOGRAPHIC FINDING IN THE CHEST. TECHNICAL DOCUMENTATION: JOB ID: [id number] [employer]- All Rights Reserved
[2017-03-27] MEDS ORDERED: ALBUTEROL SULFATE 0.083% NEB 2.5 MG/3 ML AMPUL NEB ONE (15:07)
--- NOTE | 2017-03-27 15:08 | ER Document Report ---
ED General - General Chief Complaint: Cough Stated Complaint: WHEEZING Time Seen by Provider: 03/27/17 12:46 Mode of Arrival: Ambulatory Information source: Patient Notes: 41 yo female with multiple complaints. Congestion, cough for several days. Vaignal bleeding for 3 weeks, and worried that she has STD. No chest pain or sob. No n/v/d. No fever. TRAVEL OUTSIDE OF THE [place] IN LAST 30 DAYS: No - Related Data Allergies/Adverse Reactions: diphenhydramine [From Benadryl] Allergy (Verified 03/27/17 12:04) lithium Allergy (Verified 03/27/17 12:04) Past Medical History - General Information source: Patient - Social History Smoking Status: Never Smoker Chew tobacco use (# tins/day): No Frequency of alcohol use: Social Drug Abuse: Cocaine Lives with: Family Family History: Reviewed & Not Pertinent Patient has suicidal ideation: No Patient has homicidal ideation: No - Past Medical History Cardiac Medical History: Reports: Hx Heart Attack - Recently diagnosed. Neurological Medical History: Reports: Hx Seizures Renal/ Medical History: Denies: Hx Peritoneal Dialysis GI Medical History: Reports: Hx Hepatitis Psychiatric Medical History: Reports: Hx Anxiety, Hx Bipolar Disorder, Hx Depression, Hx Schizophrenia Infectious Medical History: Reports: Hx Hepatitis Past Surgical History: Reports: Hx Appendectomy, Hx Tonsillectomy, Hx Tubal Ligation - Immunizations Hx Diphtheria, Pertussis, Tetanus Vaccination: Yes Review of Systems - Review of Systems Constitutional: No symptoms reported EENT: See HPI Cardiovascular: No symptoms reported Respiratory: See HPI Gastrointestinal: No symptoms reported Genitourinary: No symptoms reported Female Genitourinary: See HPI Musculoskeletal: No symptoms reported Skin: No symptoms reported Hematologic/Lymphatic: No symptoms reported Neurological/Psychological: No symptoms reported Physical Exam - Vital signs Vitals: Temp Pulse Resp BP Pulse Ox 98.7 F 86 18 163/106 H 97 03/27/17 12:11 03/27/17 12:11 03/27/17 12:11 03/27/17 12:11 03/27/17 12:11 Interpretation: Normal - General General appearance: Appears well, Alert In distress: None - HEENT Head: Normocephalic, Atraumatic Eyes: Normal Conjunctiva: Normal Pupils: PERRL Tympanic membrane: Normal Mucous membranes: Dry Pharynx: Normal Neck: Supple. No: Lymphadenopathy - Respiratory Respiratory status: No respiratory distress Chest status: Nontender Breath sounds: Normal Chest palpation: Normal - Cardiovascular Rhythm: Regular Heart sounds: Normal auscultation Murmur: No - Abdominal Inspection: Normal Distension: No distension Bowel sounds: Normal Tenderness: Nontender. No: Tender Organomegaly: No organomegaly - Back Back: Normal, Nontender. No: CVA tenderness - Extremities General upper extremity: Normal inspection, Nontender, Normal color, Normal ROM , Normal temperature General lower extremity: Normal inspection, Nontender, Normal color, Normal ROM , Normal temperature, Normal weight bearing. No: Jose's sign - Neurological Neuro grossly intact: Yes Cognition: Normal Orientation: AAOx4 [place] Coma Scale Eye Opening: Spontaneous Carol Coma Scale Verbal: Oriented [place] Coma Scale Motor: Obeys Commands [place] Coma Scale Total: 15 Speech: Normal Motor strength normal: LUE, RUE, LLE, RLE Sensory: Normal - Psychological Associated symptoms: Normal affect, Normal mood - Skin Skin Temperature: Warm Skin Moisture: Dry Skin Color: Normal Skin irregularity: negative: Rash Course - Re-evaluation Re-evalutation: 03/27/17 reviewed all results with the pt. No wheezing after the nebulizer tx. Not . UTI. Wants to be tx for possible STD. - Vital Signs Vital signs: Temp Pulse Resp BP Pulse Ox 98.5 F 86 18 161/85 H 99 03/27/17 15:54 03/27/17 15:54 03/27/17 15:54 03/27/17 15:54 03/27/17 15:54 - Laboratory Result Diagrams: 03/27/17 12:58 03/27/17 12:58 Laboratory results interpreted by me: 03/27/17 03/27/17 03/27/17 12:58 12:58 12:58 RDW 15.2 H BUN 6 L Glucose 136 H AST 39 H Urine Protein 100 H Urine Blood LARGE H Urine Urobilinogen 2.0 H Ur Leukocyte Esterase MODERATE H Discharge - Discharge Clinical Impression: Bronchitis, Pelvic pain, vaginal bleeding Urinary tract infection Qualifiers: Urinary tract infection type: site unspecified Hematuria presence: without hematuria Qualified Code(s): N39.0 - Urinary tract infection, site not specified Condition: Good Disposition: HOME, SELF-CARE Instructions: Azithromycin ([facility]), Cephalexin ([facility]), Family Physicians / Practices, Pelvic Pain ([facility]), Rocephin ([facility]), Steroid Medication, Urinary Tract Infection ([facility]), Vaginal Bleeding ([facility]) Additional Instructions: plenty of fluids Call me in 3 hours for the STD result because if their positive your sexual partner will need to be treated phone number is [phone] Use the albuterol metered-dose inhaler for this congested cough Steroids for 4 more days Return to the emergency room for any worsening of your symptoms give you copy of lab work and imaging given to you Prescriptions: Albuterol Sulfate [Proair HFA Inhalation Aerosol 8.5 gm MDI] 2 puff IH Q3HP PRN #1 [id number] PRN Reason: Cephalexin Monohydrate [Keflex 500 mg Capsule] 500 mg PO QID #28 capsule Prednisone [Deltasone 20 mg Tablet] 40 mg PO DAILY #8 tablet
[2017-03-27] MEDS ORDERED: AZITHROMYCIN 250 MG TABLET PO ONE (15:12)
[2017-03-27] MEDS ORDERED: CEFTRIAXONE INJ 250 MG VIAL IM ONE (15:12)
[2017-03-27] MEDS ORDERED: ONDANSETRON 4 MG TAB.RAPDIS PO ONE (15:12)
[2017-03-27 15:24] LABS: RBCS (WET MOUNT) 4+ RBCS SEEN; T.VAGINALIS (WET MOUNT) NO TRICHOMONAS SEEN; WBCS (WET MOUNT) RARE WBCS SEEN; YEAST (WET MOUNT) NO YEAST SEEN
[2017-03-27 16:00] VITALS: BP 161/85
[2017-03-27 16:46] LABS: CHLAM PCR NOT DETECTED (NOT DETECT); GON PCR NOT DETECTED (NOT DETECT)
== END 2017-03-27 16:00 | disposition home or self-care (01) ==
LOC: ER 11:59
DX: J40 Bronchitis, not specified as acute or chronic (principal); N39.0 Urinary tract infection, site not specified; R10.2 Pelvic and perineal pain; N93.9 Abnormal uterine and vaginal bleeding, unspecified; R05 Cough; R06.2 Wheezing; R09.81 Nasal congestion; I25.2 Old myocardial infarction
CPT/HCPCS: 94640 ×2; 99284; 96372; 36415; 87086; 87210; 84703; 85025; 85610; 87088; 80053; 81001; 87186; 87491; 87591; 71046; S0119; J7512; J0696; J7620

== ENCOUNTER 2017-06-14 20:05 | Emergency (ER) | payer SELFPAY ==
[2017-06-14 22:10] LABS: ABSOLUTE LYMPHOCYTES (AUTO) 2.9 10^3/uL (0.5-4.7); ABSOLUTE MONOCYTES (AUTO) 0.8 10^3/uL (0.1-1.4); ABSOLUTE NEUT (AUTO) 5.7 10^3/uL (1.7-8.2); BASOPHILS % (AUTO) 0.5 % (0-2); EOSINOPHILS % (AUTO) 0.2 % (0-6); HEMATOCRIT 38.4 % (36.0-47.0); HEMOGLOBIN 12.3 g/dL (12.0-15.5); MEAN CORPUSCULAR HEMOGLOBIN 26.8 pg (27.0-33.4); MEAN CORPUSCULAR HGB CONC 32.1 g/dL (32.0-36.0); MEAN CORPUSCULAR VOLUME 83 fl (80-97); MONOCYTES % (AUTO) 8.3 % (3-13); PLATELET COUNT 325 10^3/uL (150-450); RED BLOOD COUNT 4.61 10^6/uL (3.72-5.28); RED CELL DISTRIBUTION WIDTH 15.9 % (11.5-14.0); TOTAL CELLS COUNTED % (AUTO) 100 %; WHITE BLOOD COUNT 9.5 10^3/uL (4.0-10.5)
[2017-06-14 22:23] LABS: AMORPHOUS SEDIMENT,URINE TRACE /HPF; APPEARANCE,URINE CLOUDY; BILIRUBIN,URINE NEGATIVE (NEGATIVE); COLOR,URINE AMBER; GLUCOSE, URINE NEGATIVE (NEGATIVE); KETONES,URINE NEGATIVE (NEGATIVE); LEUKOCYTE ESTERASE,URINE TRACE (NEGATIVE); NITRITE,URINE POSITIVE (NEGATIVE); PROTEIN,URINE NEGATIVE (NEGATIVE); URINE SPECIFIC GRAVITY 1.013
[2017-06-14 22:28] LABS: ALANINE AMINOTRANSFERASE 45 U/L (9-52); ALBUMIN 4.4 g/dL (3.5-5.0); ALKALINE PHOSPHATASE 53 U/L (38-126); ANION GAP 9 (5-19); ASPARTATE AMINO TRANSFERASE 33 U/L (14-36); BILIRUBIN,DIRECT 0.2 mg/dL (0.0-0.4); BILIRUBIN,TOTAL 0.2 mg/dL (0.2-1.3); BLOOD UREA NITROGEN 18 mg/dL (7-20); CALCIUM 9.8 mg/dL (8.4-10.2); CARBON DIOXIDE 28 mmol/L (22-30); CHLORIDE 103 mmol/L (98-107); GLUCOSE 80 mg/dL (75-110); LIPASE 106.1 U/L (23-300); SODIUM 140.2 mmol/L (137-145); TOTAL PROTEIN 7.6 g/dL (6.3-8.2)
--- NOTE | 2017-06-15 00:36 | ER Document Report ---
ED GI/ - General Chief Complaint: Abdominal Pain Stated Complaint: ABDOMINAL PAIN Time Seen by Provider: 06/14/17 23:55 Notes: Patient is a 42-year-old female who comes emergency department for chief complaint of lower abdominal pain, dysuria, urinary frequency, she states she is starting to get intermittent nausea and some pain in her lower back now as well. She denies fever or chills. She has some vaginal irritation and discharge, she denies vaginal bleeding. She denies trauma. She is sexually active. She has had a tubal ligation. She states she is supposed to be on blood pressure medication but she never filled them. TRAVEL OUTSIDE OF THE [place] IN LAST 30 DAYS: No - Related Data Allergies/Adverse Reactions: diphenhydramine [From Benadryl] Allergy (Verified 03/27/17 12:04) lithium Allergy (Verified 03/27/17 12:04) Past Medical History - General Information source: Patient - Social History Smoking Status: Never Smoker Frequency of alcohol use: not any more Lives with: Family Family History: Reviewed & Not Pertinent Patient has suicidal ideation: No Patient has homicidal ideation: No - Past Medical History Cardiac Medical History: Reports: Hx Heart Attack - Recently diagnosed. Neurological Medical History: Reports: Hx Seizures Renal/ Medical History: Denies: Hx Peritoneal Dialysis GI Medical History: Reports: Hx Hepatitis Psychiatric Medical History: Reports: Hx Anxiety, Hx Bipolar Disorder, Hx Depression, Hx Schizophrenia Infectious Medical History: Reports: Hx Hepatitis Past Surgical History: Reports: Hx Appendectomy, Hx Tonsillectomy, Hx Tubal Ligation - Immunizations Hx Diphtheria, Pertussis, Tetanus Vaccination: Yes Review of Systems - Review of Systems Constitutional: No symptoms reported EENT: No symptoms reported Cardiovascular: No symptoms reported Respiratory: No symptoms reported Gastrointestinal: See HPI Genitourinary: See HPI Female Genitourinary: See HPI Musculoskeletal: No symptoms reported Skin: No symptoms reported Hematologic/Lymphatic: No symptoms reported Neurological/Psychological: No symptoms reported Physical Exam - Vital signs Vitals: Temp Pulse BP Pulse Ox 98.5 F 82 189/104 H 100 06/14/17 20:27 06/14/17 20:27 06/14/17 20:27 06/14/17 20:27 Interpretation: Normal - General General appearance: Appears well, Alert - HEENT Head: Normocephalic, Atraumatic Eyes: Normal Pupils: PERRL - Respiratory Respiratory status: No respiratory distress Chest status: Nontender Breath sounds: Normal Chest palpation: Normal - Cardiovascular Rhythm: Regular Heart sounds: Normal auscultation Murmur: No - Abdominal Inspection: Normal Distension: No distension Bowel sounds: Normal Tenderness: Tender - Is mild tenderness in the suprapubic and lower abdomen area generally, nonspecific, no guarding, no rebound tenderness Organomegaly: No organomegaly - Genitourinary External exam: Normal Speculum exam: Vaginal discharge - Minimal vaginal discharge Vaginal bleeding: None Bimanuel exam: No: Cervical motion tender Notes: PCT Christine present during pelvic exam - Back Back: Normal, Nontender. No: Tender, CVA tenderness - Extremities General upper extremity: Normal inspection, Nontender, Normal color, Normal ROM , Normal temperature General lower extremity: Normal inspection, Nontender, Normal color, Normal ROM , Normal temperature, Normal weight bearing. No: Jose's sign - Neurological Neuro grossly intact: Yes Cognition: Normal Orientation: AAOx4 Carol Coma Scale Eye Opening: Spontaneous Carol Coma Scale Verbal: Oriented [place] Coma Scale Motor: Obeys Commands Carol Coma Scale Total: 15 Speech: Normal Motor strength normal: LUE, RUE, LLE, RLE Sensory: Normal - Psychological Associated symptoms: Normal affect, Normal mood - Skin Skin Temperature: Warm Skin Moisture: Dry Skin Color: Normal Course - Re-evaluation Re-evalutation: Patient hypertensive, vital signs otherwise unremarkable. No chest pain, headache, or urinary retention. Recommended this rechecked by primary care. CBC, chemistry unremarkable, urine does show evidence of infection, she does have suprapubic tenderness, she has small amount of vaginal discharge, she was covered for pelvic exam. Wet mount and gonorrhea/chlamydia unremarkable otherwise. No evidence of sepsis, no evidence of acute abdomen, discussed treatment, follow-up, return precautions. Patient states understanding and agreement. - Vital Signs Vital signs: Temp Pulse Resp BP Pulse Ox 97.8 F 69 20 170/94 H 100 06/15/17 02:28 06/15/17 02:28 06/15/17 02:28 06/15/17 02:28 06/15/17 02:28 - Laboratory Result Diagrams: 06/14/17 21:45 06/14/17 21:45 Laboratory results interpreted by me: 06/14/17 06/14/17 21:45 21:45 MCH 26.8 L RDW 15.9 H Urine Nitrite POSITIVE H Urine Urobilinogen 2.0 H Ur Leukocyte Esterase TRACE H Discharge - Discharge Clinical Impression: Dysuria, Lower abdominal pain Urinary tract infection Qualifiers: Urinary tract infection type: site unspecified Hematuria presence: without hematuria Qualified Code(s): N39.0 - Urinary tract infection, site not specified Condition: Stable Disposition: HOME, SELF-CARE Additional Instructions: Your workup indicates a urinary tract infection, you have been covered for a pelvic infection as well. Take antibiotics as prescribed to completion. Recommendation is no intercourse for 1 week. Follow-up with primary care. Return for any concerning symptoms including fever of 100.4 greater, vomiting, worsening pain, or any other concerning or worsening symptoms. Prescriptions: Cephalexin Monohydrate [Keflex 500 mg Capsule] 500 mg PO BID #10 capsule Forms: Elevated Blood Pressure
[2017-06-15 01:31] LABS: RBCS (WET MOUNT) RARE RBCS SEEN; T.VAGINALIS (WET MOUNT) NO TRICHOMONAS SEEN; WBCS (WET MOUNT) 2+ WBCS SEEN; YEAST (WET MOUNT) NO YEAST SEEN
[2017-06-15] MEDS ORDERED: LIDOCAINE 1% INJ-PF (10 MG/ML) 30 ML SDV INJ ONE (01:56)
[2017-06-15] MEDS ORDERED: CEFTRIAXONE INJ 250 MG VIAL IM ONE (01:56)
[2017-06-15] MEDS ORDERED: AZITHROMYCIN 250 MG TABLET PO ONE (01:56)
[2017-06-15 02:31] VITALS: BP 170/94
[2017-06-15 02:52] LABS: CHLAM PCR NOT DETECTED (NOT DETECT); GON PCR NOT DETECTED (NOT DETECT)
== END 2017-06-15 02:30 | disposition home or self-care (01) ==
LOC: ER 20:05
DX: N39.0 Urinary tract infection, site not specified (principal); R10.30 Lower abdominal pain, unspecified; R30.0 Dysuria; R35.0 Frequency of micturition; R11.0 Nausea; M54.5 Low back pain; N89.8 Other specified noninflammatory disorders of vagina; I25.2 Old myocardial infarction; Z88.8 Allergy status to other drugs, medicaments and biological substances; Z98.51 Tubal ligation status; Z90.49 Acquired absence of other specified parts of digestive tract
CPT/HCPCS: 99284; 96372; 36415; 87210; 83690; 85025; 81025; 80053; 81001; 87491; 87591; J3490; J0696

== ENCOUNTER 2017-08-14 06:36 | Emergency (ER) | payer SELFPAY ==
[2017-08-14] MEDS ORDERED: LIDOCAINE 1% INJ-PF (10 MG/ML) 30 ML SDV INJ ONE (07:26)
[2017-08-14] MEDS ORDERED: DIAZEPAM 2 MG TABLET PO ONE (08:19)
--- NOTE | 2017-08-14 08:24 | ER Document Report ---
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 Patient states that a " nurse friend" came over to her house last night and cut it open with a gambling box person, got out some pus. Patient denies any fevers or chills, admits that the redness is getting larger over the last 24 hours. TRAVEL OUTSIDE OF THE [place] IN LAST 30 DAYS: No - Related Data Allergies/Adverse Reactions: diphenhydramine [From Benadryl] Allergy (Verified 08/14/17 06:38) lithium Allergy (Verified 08/14/17 06:38) Past Medical History - General Information source: Patient - Social History Smoking Status: Never Smoker Chew tobacco use (# tins/day): No Frequency of alcohol use: twice a wk Drug Abuse: None Family History: Reviewed & Not Pertinent Patient has suicidal ideation: No Patient has homicidal ideation: No - Past Medical History Cardiac Medical History: Reports: Hx Heart Attack - Recently diagnosed. Neurological Medical History: Reports: Hx Seizures Renal/ Medical History: Denies: Hx Peritoneal Dialysis GI Medical History: Reports: Hx Hepatitis Psychiatric Medical History: Reports: Hx Anxiety, Hx Bipolar Disorder, Hx Depression, Hx Schizophrenia Infectious Medical History: Reports: Hx Hepatitis Past Surgical History: Reports: Hx Appendectomy, Hx Tonsillectomy, Hx Tubal Ligation - Immunizations Hx Diphtheria, Pertussis, Tetanus Vaccination: Yes Review of Systems - Review of Systems Constitutional: No symptoms reported EENT: No symptoms reported Cardiovascular: No symptoms reported Respiratory: No symptoms reported Gastrointestinal: No symptoms reported Genitourinary: No symptoms reported Female Genitourinary: No symptoms reported Musculoskeletal: No symptoms reported Skin: See HPI Hematologic/Lymphatic: No symptoms reported Neurological/Psychological: No symptoms reported Physical Exam - Vital signs Vitals: Temp Pulse Resp BP Pulse Ox 98.8 F 86 20 171/100 H 98 08/14/17 06:43 08/14/17 06:43 08/14/17 06:43 08/14/17 06:43 08/14/17 06:43 - Notes Notes: PHYSICAL EXAMINATION: GENERAL: Uncomfortable, but in no acute distress. HEAD: Atraumatic, normocephalic. EYES: Pupils equal round and reactive to light, extraocular movements intact, sclera anicteric, conjunctiva are normal. NECK: Normal range of motion, supple without lymphadenopathy LUNGS: CTAB and equal. No wheezes rales or rhonchi. HEART: Regular rate and rhythm without murmurs EXTREMITIES: Normal range of motion, no pitting edema. No cyanosis. NEUROLOGICAL: Intermittent, random full-body jerks, otherwise cranial nerves grossly intact. Normal sensory/motor exams. PSYCH: Normal mood, normal affect. SKIN: Warm, Dry, normal turgor, right lateral thigh with 5 cm in diameter of erythema with approximately 2 cm in the center of induration with small hole overlying center and some purulent drainage, tender to palpation, warm to the touch Course - Re-evaluation Re-evalutation: 08/14/17 08:22 Abscess was incised and drained successfully, culture is pending at this time. Patient tolerated well. Patient is having intermittent, random full-body jerks that I believe are intentional. 08/14/17 08:23 - Vital Signs Vital signs: Temp Pulse Resp BP Pulse Ox 98.8 F 86 20 171/100 H 98 08/14/17 06:43 08/14/17 06:43 08/14/17 06:43 08/14/17 06:43 08/14/17 06:43 Procedures - Incision and Drainage Right Lateral Thigh Time completed: 08:15 Type: Simple Anesthetic type: 1% Lidocaine mL's of anesthetic: 5 Blade size: 11 I&D procedure: Shurclens applied Incision Method: Incision made by scalpel Amount/type of drainage: purulent, 5cc Discharge - Discharge Clinical Impression: Abscess of leg without foot, right Condition: Stable Disposition: HOME, SELF-CARE Instructions: Post Incision and Drainage, Trimethoprim-Sulfa ([facility]), Abscess ( [facility]) Additional Instructions: Return immediately for any new or worsening symptoms. Follow up with primary care provider, call tomorrow to make followup appointment. Prescriptions: Sulfamethoxazole/Trimethoprim [Bactrim Ds Tablet] 1 each PO BID #20 tablet
[2017-08-14 08:49] VITALS: BP 172/100
== END 2017-08-14 09:09 | disposition home or self-care (01) ==
LOC: ER 06:36
DX: L02.415 Cutaneous abscess of right lower limb (principal); Z86.14 Personal history of Methicillin resistant Staphylococcus aureus infection; Z88.8 Allergy status to other drugs, medicaments and biological substances
CPT/HCPCS: 99283; 87070; 87205; 87077; 87186; 10060; J3490 ×2

== ENCOUNTER 2018-02-21 21:51 | Emergency (ER) | payer SELFPAY ==
[2018-02-21 22:16] VITALS: BP 176/98
[2018-02-21 22:35] LABS: APPEARANCE,URINE SLIGHTLY-CLOUDY; BILIRUBIN,URINE NEGATIVE (NEGATIVE); COLOR,URINE YELLOW; GLUCOSE, URINE NEGATIVE (NEGATIVE); KETONES,URINE NEGATIVE (NEGATIVE); LEUKOCYTE ESTERASE,URINE LARGE (NEGATIVE); NITRITE,URINE NEGATIVE (NEGATIVE); PROTEIN,URINE NEGATIVE (NEGATIVE); URINE SPECIFIC GRAVITY 1.005; UROBILINOGEN,URINE NEGATIVE mg/dL (<2.0)
--- NOTE | 2018-02-21 23:24 | ER Document Report ---
ED Medical Screen (RME) - General Chief Complaint: Pelvic Pain Stated Complaint: PELVIC PAIN Time Seen by Provider: 02/21/18 23:22 Notes: 42-year-old female, comes from residential with law enforcement escort, with chief complaint of lower abdominal pain, however she also states that earlier in the afternoon she had an episode where she felt pain in the center of her chest that went towards her left shoulder and she felt dizzy. She denies passing out. She also states that she has painful urination and some flank pain. Denies vomiting, nausea, fever, difficulty breathing. TRAVEL OUTSIDE OF THE [place] IN LAST 30 DAYS: No - Related Data Allergies/Adverse Reactions: diphenhydramine [From Benadryl] Allergy (Verified 08/14/17 06:38) lithium Allergy (Verified 08/14/17 06:38) Past Medical History - Past Medical History Cardiac Medical History: Reports: Hx Heart Attack - Recently diagnosed. Neurological Medical History: Reports: Hx Seizures Renal/ Medical History: Denies: Hx Peritoneal Dialysis GI Medical History: Reports: Hx Hepatitis Psychiatric Medical History: Reports: Hx Anxiety, Hx Bipolar Disorder, Hx Depression, Hx Schizophrenia Infectious Medical History: Reports: Hx Hepatitis Past Surgical History: Reports: Hx Appendectomy, Hx Tonsillectomy, Hx Tubal Ligation - Immunizations Hx Diphtheria, Pertussis, Tetanus Vaccination: Yes Physical Exam - Vital signs Vitals: Temp Pulse Resp BP Pulse Ox 98.3 F 72 18 177/110 H 98 02/21/18 22:12 02/21/18 22:12 02/21/18 22:12 02/21/18 22:12 02/21/18 22:12 - Cardiovascular Rhythm: Regular. No: Tachycardia Heart sounds: Normal auscultation, S1 appreciated, S2 appreciated - Abdominal Tenderness: Tender - Patient winces with palpation of the general lower abdomen , however no guarding or rigidity Course - Vital Signs Vital signs: Temp Pulse Resp BP Pulse Ox 98.3 F 72 18 176/98 H 98 02/21/18 22:12 02/21/18 22:12 02/21/18 22:12 02/21/18 22:16 02/21/18 22:12 - Laboratory Laboratory results interpreted by me: 02/21/18 22:18 Ur Leukocyte Esterase LARGE H
[2018-02-22 00:04] LABS: ABSOLUTE BASOPHILS # (AUTO) 0.1 10^3/uL (0.0-0.2); ABSOLUTE LYMPHOCYTES (AUTO) 2.3 10^3/uL (0.5-4.7); ABSOLUTE MONOCYTES (AUTO) 0.7 10^3/uL (0.1-1.4); ABSOLUTE NEUT (AUTO) 8.6 10^3/uL (1.7-8.2); BASOPHILS % (AUTO) 0.6 % (0-2); EOSINOPHILS % (AUTO) 0.1 % (0-6); HEMATOCRIT 39.3 % (36.0-47.0); HEMOGLOBIN 13.5 g/dL (12.0-15.5); LYMPHOCYTES % (AUTO) 19.7 % (13-45); MEAN CORPUSCULAR HEMOGLOBIN 30.5 pg (27.0-33.4); MEAN CORPUSCULAR HGB CONC 34.3 g/dL (32.0-36.0); MEAN CORPUSCULAR VOLUME 89 fl (80-97); MONOCYTES % (AUTO) 6.3 % (3-13); PLATELET COUNT 338 10^3/uL (150-450); RED BLOOD COUNT 4.42 10^6/uL (3.72-5.28); RED CELL DISTRIBUTION WIDTH 14.7 % (11.5-14.0); SEGMENTED NEUTROPHILS % (AUTO) 73.3 % (42-78); TOTAL CELLS COUNTED % (AUTO) 100 %; WHITE BLOOD COUNT 11.7 10^3/uL (4.0-10.5)
--- NOTE | 2018-02-22 00:18 | RADIOLOGY REPORT (SQ) ---
EXAM DESCRIPTION: XR CHEST 1 VIEW COMPLETED DATE/TME: 02/21/2018 23:22 CLINICAL HISTORY: 42 years, Female, chest pain COMPARISON: 03/27/2017 chest NUMBER OF VIEWS: 1 TECHNIQUE: Frontal view chest LIMITATIONS: None. FINDINGS: Heart size is normal. Lungs are clear. No pneumothorax IMPRESSION: Negative chest copyright 2010 [employer]- All Rights Reserved
[2018-02-22 03:18] LABS: ALANINE AMINOTRANSFERASE 24 U/L (9-52); ALBUMIN 4.5 g/dL (3.5-5.0); ALKALINE PHOSPHATASE 67 U/L (38-126); ANION GAP 14 (5-19); ASPARTATE AMINO TRANSFERASE 30 U/L (14-36); BILIRUBIN,DIRECT 0.2 mg/dL (0.0-0.4); BILIRUBIN,TOTAL 0.4 mg/dL (0.2-1.3); BLOOD UREA NITROGEN 11 mg/dL (7-20); CALCIUM 9.8 mg/dL (8.4-10.2); CARBON DIOXIDE 26 mmol/L (22-30); CHLORIDE 103 mmol/L (98-107); GLUCOSE 105 mg/dL (75-110); LIPASE 67.5 U/L (23-300); POTASSIUM 3.7 mmol/L (3.6-5.0); SODIUM 142.5 mmol/L (137-145); TOTAL PROTEIN 8.2 g/dL (6.3-8.2)
[2018-02-22] MEDS ORDERED: CEFTRIAXONE 1 GM/D5W RTU 1 GM/50 ML RTUPB IV ONE (03:44)
--- NOTE | 2018-02-22 03:48 | ER Document Report ---
ED GI/ - General Chief Complaint: Pelvic Pain Stated Complaint: PELVIC PAIN Time Seen by Provider: 02/21/18 23:22 Notes: Patient is a 42-year-old female, comes from [place] with law enforcement escort, with chief complaint of lower abdominal pain, however she also states that earlier in the afternoon she had an episode where she felt pain in the center of her chest that went towards her left shoulder and she felt dizzy. She denies passing out. Denies current chest pain. She does not smoke. Denies recreational drugs. She also states that she has painful urination and some flank pain. Denies vomiting, nausea, fever, difficulty breathing. TRAVEL OUTSIDE OF THE [place] IN LAST 30 DAYS: No - Related Data Allergies/Adverse Reactions: diphenhydramine [From Benadryl] Allergy (Verified 08/14/17 06:38) lithium Allergy (Verified 08/14/17 06:38) Past Medical History - General Information source: Patient - Social History Smoking Status: Never Smoker Drug Abuse: None Lives with: Other - Incarcerated Family History: Reviewed & Not Pertinent Neurological Medical History: Reports: Hx Seizures Renal/ Medical History: Denies: Hx Peritoneal Dialysis GI Medical History: Reports: Hx Hepatitis Psychiatric Medical History: Reports: Hx Anxiety, Hx Bipolar Disorder, Hx Depression, Hx Schizophrenia Infectious Medical History: Reports: Hx Hepatitis Past Surgical History: Reports: Hx Appendectomy, Hx Tonsillectomy, Hx Tubal Ligation - Immunizations Hx Diphtheria, Pertussis, Tetanus Vaccination: Yes Review of Systems - Review of Systems Constitutional: No symptoms reported EENT: No symptoms reported Cardiovascular: See HPI Respiratory: See HPI Gastrointestinal: See HPI Genitourinary: See HPI Female Genitourinary: See HPI Musculoskeletal: No symptoms reported Skin: No symptoms reported Hematologic/Lymphatic: No symptoms reported Neurological/Psychological: No symptoms reported Physical Exam - Vital signs Vitals: Temp Pulse Resp BP Pulse Ox 98.3 F 72 18 177/110 H 98 02/21/18 22:12 02/21/18 22:12 02/21/18 22:12 02/21/18 22:12 02/21/18 22:12 - Notes Notes: GENERAL: Alert, interacts well. No acute distress. HEAD: Normocephalic, atraumatic. EYES: Pupils equal, round, and reactive to light. Extraocular movements intact. ENT: Oral mucosa moist, tongue midline. Oropharynx unremarkable. Airway patent. Nares patent, no nasal septal hematoma, TM's intact. NECK: Full range of motion. Supple. Trachea midline. LUNGS: Clear to auscultation bilaterally, no wheezes, rales, or rhonchi. No respiratory distress. HEART: Regular rate and rhythm. No murmur ABDOMEN: Tenderness in the general lower abdomen, upper abdomen nontender, no focal guarding, no rigidity, no rebound tenderness. GENITOURINARY: No external abnormalities noted, minimal discharge on pelvic exam , no cervical motion tenderness, no other concerning abnormality noted. [place] PCT present during exam. EXTREMITIES: Moves all 4 extremities spontaneously. No edema, normal radial and dorsalis pedis pulses bilaterally. No cyanosis. BACK: no cervical, thoracic, lumbar midline tenderness. No saddle anesthesia, normal distal neurovascular exam. No overt CVA tenderness, complains of mild mid back tenderness on palpation. NEUROLOGICAL: Alert and oriented x3. Normal speech. [cranial nerves II through XII grossly intact]. PSYCH: Slightly flat affect but still makes good eye contact and responds appropriately SKIN: Warm, dry, normal turgor. No rashes or lesions noted. Course - Re-evaluation Re-evalutation: Patient has lower abdominal tenderness and vague generalized mid flank tenderness on examination suggestive of pyelonephritis. Patient with no current chest symptoms, chest x-ray is clear, EKG sinus rhythm with no T wave inversions or ST segment changes in consecutive leads. Troponin is negative despite over 8 hours since the symptoms occurred. Vital signs are unremarkable without tachycardia, fever, hypotension. Low suspicion of ACS, dissection, pulmonary embolism. Patient initially complaining that she just does not feel good, however after Toradol, patient was reevaluated she states she feels much better. She was sleeping and was easily aroused. Unfortunately blood pressure was not rechecked after she became comfortable. Still, she was denying chest pain or headache during her evaluation here. CBC shows mild leukocytosis, chemistry unremarkable, urinalysis does indicate urinary tract infection consistent with suspected developing pyelonephritis. Given Rocephin, culture placed. Patient is not toxic in appearance, she does not have a fever, she has not vomiting, and I do not suspect sepsis at this time. Pelvic examination suggesting bacterial vaginosis but no cervical motion tenderness or large amount of white blood cells on wet mount suggesting PID. Given Flagyl. Given azithromycin before she left to cover for pelvic infection. Patient denies concerns of STD. Patient initially complaining that she just does not feel good, however after Toradol, patient was reevaluated she states she feels much better. She was sleeping and was easily aroused. Unfortunately blood pressure was not rechecked after she became comfortable. Still, she was denying chest pain or headache during her evaluation here. Discussed expectations, follow-up, and return precautions in detail. Patient stated understanding and agreement. 02/22/18 07:00 Patient was released, it has been 3 hours since gonorrhea/chlamydia testing was sent to lab, I called microbiology and they now resulted a positive gonorrhea and negative chlamydia result to me. 02/22/18 07:05 [facility], spoke with Josefina the nurse at the nursing station, informed her of the positive result. She states she will inform the patient, no intercourse for 1 week, understand patient has already been covered with Rocephin and Azithromycin, will complete flagyl and keflex courses. - Vital Signs Vital signs: Temp Pulse Resp BP Pulse Ox 98.3 F 72 18 176/98 H 98 02/21/18 22:12 02/21/18 22:12 02/21/18 22:12 02/21/18 22:16 02/21/18 22:12 - Laboratory Result Diagrams: 02/21/18 23:50 02/22/18 02:54 Laboratory results interpreted by me: 02/21/18 02/21/18 02/22/18 22:18 23:50 03:58 WBC 11.7 H RDW 14.7 H Absolute Neutrophils 8.6 H Ur Leukocyte Esterase LARGE H N.gonorrhoeae DNA (PCR) DETECTED H Discharge - Discharge Clinical Impression: Lower abdominal pain, Flank pain Chest pain Qualifiers: Chest pain type: unspecified Qualified Code(s): R07.9 - Chest pain, unspecified Condition: Stable Disposition: HOME, SELF-CARE Additional Instructions: Your evaluation is most consistent with a urinary tract infection, a developing kidney infection. You have begun treatment here with Rocephin through the IV, continue treatment with Keflex antibiotics to completion. Your evaluation also indicates bacterial vaginosis, take the Flagyl antibiotic as prescribed to completion. You can take Tylenol or ibuprofen for pain, drink plenty of fluids and rest. Follow-up with primary care. Return if you worsen including fever of 100.4 or greater, vomiting, severe abdominal pain, or any other concerning or worsening symptoms. Prescriptions: Cephalexin Monohydrate [Keflex 500 mg Capsule] 500 mg PO BID #14 capsule Metronidazole [Flagyl 500 mg Tablet] 500 mg PO BID #14 tablet
[2018-02-22 04:18] LABS: BACTERIA (WET MOUNT) 4+ BACTERIA SEEN; RBCS (WET MOUNT) FEW RBCS SEEN; T.VAGINALIS (WET MOUNT) NO TRICHOMONAS SEEN; WBCS (WET MOUNT) 1+ WBCS SEEN; YEAST (WET MOUNT) NO YEAST SEEN
[2018-02-22 04:19] LABS: EPITHELIALS (WET MOUNT) 4+ EPITHELIALS SEEN
[2018-02-22] MEDS ORDERED: AZITHROMYCIN 250 MG TABLET PO ONE (04:42)
[2018-02-22] MEDS ORDERED: ONDANSETRON HCL INJ/PF 4 MG/2 ML SDV IV ONE (05:16)
[2018-02-22 05:40] LABS: CHLAM PCR NOT DETECTED (NOT DETECT)
[2018-02-22 07:00] LABS: GON PCR DETECTED (NOT DETECT)
--- NOTE | 2018-02-22 10:02 | EKG REPORT ---
SEVERITY:- ABNORMAL ECG - SINUS RHYTHM CONSIDER LEFT VENTRICULAR HYPERTROPHY : Confirmed by: Bharati Camara MD 22-Feb-2018 10:00:31
== END 2018-02-22 05:37 | disposition home or self-care (01) ==
LOC: ER 21:51
DX: R10.2 Pelvic and perineal pain (principal); R07.9 Chest pain, unspecified; R42 Dizziness and giddiness; R10.9 Unspecified abdominal pain; R30.9 Painful micturition, unspecified; Z88.8 Allergy status to other drugs, medicaments and biological substances; Z90.49 Acquired absence of other specified parts of digestive tract; Z98.51 Tubal ligation status
CPT/HCPCS: 93005; 99285; 96375; 96365; 36415; 87086; 87210; 83690; 85025; 81025; 87088; 80053; 81001; 84484; 87186; 87491; 87591; 71045; 93010; J2405; J0696

== ENCOUNTER 2018-04-25 17:52 | Emergency (ER) | payer SELFPAY ==
[2018-04-25] MEDS ORDERED: NORMAL SALINE 1000 ML 1,000 ML IV ONE (18:10)
[2018-04-25] MEDS ORDERED: RACEPINEPHRINE HCL 2.25% NEB 0.5 ML AMPUL NEB ONE (18:10)
--- NOTE | 2018-04-25 18:11 | ER Document Report ---
ED Medical Screen (RME) - General Chief Complaint: Drug Abuse Stated Complaint: POSSIBLE DRUG ABUSE Time Seen by Provider: 04/25/18 18:06 Notes: 42 years old female with a history of cocaine abuse, last night used to cocaine which may be laid with other substances. Since then having fidgety, difficulty in breathing and stridor. Therefore present to the ED. On examination mild stridor noted in the neck. Involuntary movement of the limbs noted. TRAVEL OUTSIDE OF THE [place] IN LAST 30 DAYS: No - Related Data Allergies/Adverse Reactions: diphenhydramine [From Benadryl] Allergy (Verified 08/14/17 06:38) lithium Allergy (Verified 08/14/17 06:38) Past Medical History - Past Medical History Cardiac Medical History: Reports: Hx Heart Attack - Recently diagnosed. Neurological Medical History: Reports: Hx Seizures Renal/ Medical History: Denies: Hx Peritoneal Dialysis GI Medical History: Reports: Hx Hepatitis Psychiatric Medical History: Reports: Hx Anxiety, Hx Bipolar Disorder, Hx Depression, Hx Schizophrenia Infectious Medical History: Reports: Hx Hepatitis Past Surgical History: Reports: Hx Appendectomy, Hx Tonsillectomy, Hx Tubal Ligation - Immunizations Hx Diphtheria, Pertussis, Tetanus Vaccination: Yes Physical Exam - Vital signs Vitals: Temp Pulse Resp BP Pulse Ox 98.8 F 99 19 164/103 H 99 04/25/18 17:58 04/25/18 17:58 04/25/18 17:58 04/25/18 17:58 04/25/18 17:58 Course - Vital Signs Vital signs: Temp Pulse Resp BP Pulse Ox 98.8 F 99 19 164/103 H 99 04/25/18 17:58 04/25/18 17:58 04/25/18 17:58 04/25/18 17:58 04/25/18 17:58
[2018-04-25] MEDS ORDERED: LORAZEPAM 1 MG TABLET PO ONE (18:34)
--- NOTE | 2018-04-25 19:34 | ER Document Report ---
ED General - General Chief Complaint: Drug Abuse Stated Complaint: POSSIBLE DRUG ABUSE Time Seen by Provider: 04/25/18 18:06 Notes: Patient is a 42-year-old female with a past medical history of polysubstance abuse, border line personality disorder, bipolar disorder, presents complaining of feelings of restlessness, anxiety and feeling like her throat is intermittent closing for the past 12-14 hours ever since snorting 2 lines of cocaine. Patient reports that she has had similar symptoms in the past with abuse of cocaine. Nothing has improved her symptoms since onset. Denies any chest pain. Has not seen her primary care physician regarding today's concerns. Denies any focal weakness or numbness. Symptoms have been unchanged since onset. TRAVEL OUTSIDE OF THE [place] IN LAST 30 DAYS: No - Related Data Allergies/Adverse Reactions: diphenhydramine [From Benadryl] Allergy (Verified 08/14/17 06:38) lithium Allergy (Verified 08/14/17 06:38) Past Medical History - General Information source: Patient - Social History Smoking Status: Never Smoker Chew tobacco use (# tins/day): No Frequency of alcohol use: Heavy Drug Abuse: Cocaine Lives with: Friend Family History: Reviewed & Not Pertinent Patient has suicidal ideation: No Patient has homicidal ideation: No - Past Medical History Cardiac Medical History: Reports: Hx Heart Attack - Recently diagnosed. Neurological Medical History: Reports: Hx Seizures Renal/ Medical History: Denies: Hx Peritoneal Dialysis GI Medical History: Reports: Hx Hepatitis Psychiatric Medical History: Reports: Hx Anxiety, Hx Bipolar Disorder, Hx Depression, Hx Schizophrenia Infectious Medical History: Reports: Hx Hepatitis Past Surgical History: Reports: Hx Appendectomy, Hx Tonsillectomy, Hx Tubal Ligation - Immunizations Hx Diphtheria, Pertussis, Tetanus Vaccination: Yes Review of Systems - Review of Systems Notes: Constitutional: Negative for fever. Positive for restlessness HENT: Negative for sore throat.Positive for intermittent feeling of throat closure Eyes: Negative for visual changes. Cardiovascular: Negative for chest pain. Respiratory: Negative for shortness of breath Gastrointestinal: Negative for abdominal pain, vomiting or diarrhea. Genitourinary: Negative for dysuria. Musculoskeletal: Negative for back pain. Skin: Negative for rash. Neurological: Negative for headaches, weakness or numbness. 10 point ROS negative except as marked above and in HPI. Physical Exam - Vital signs Vitals: Temp Pulse Resp BP Pulse Ox 98.8 F 99 19 164/103 H 99 04/25/18 17:58 04/25/18 17:58 04/25/18 17:58 04/25/18 17:58 04/25/18 17:58 Interpretation: Hypertensive Notes: PHYSICAL EXAMINATION: GENERAL: Anxious, fidgeting HEAD: Atraumatic, normocephalic. EYES: Pupils equal round and reactive to light, extraocular movements intact, sclera anicteric, conjunctiva are normal. ENT: nares patent, oropharynx clear without exudates. Moist mucous membranes. NECK: Normal range of motion, supple without lymphadenopathy, no stridor LUNGS: Breath sounds clear to auscultation bilaterally and equal. No wheezes rales or rhonchi. HEART: Regular rate and rhythm without murmurs ABDOMEN: Soft, nontender, normoactive bowel sounds. No guarding, no rebound. No masses appreciated. EXTREMITIES: Normal range of motion, no pitting or edema. No cyanosis. NEUROLOGICAL: No focal neurological deficits. Moves all extremities spontaneously and on command. PSYCH: Extremely anxious, restless SKIN: Warm, Dry, normal turgor, no rashes or lesions noted. Course - Re-evaluation Re-evalutation: 04/25/18 19:30 Patient presents with feeling extremely anxious, stating that she intermittent feels like she is having throat closure, feels like she cannot sit still and has felt this way since snorting 2 lines of cocaine approximately 14 hours ago. Of note she denies any distinct shortness of breath. States that symptoms have occurred in the past when she has used cocaine. On exam, contrary to the triage assessment note there is no evidence of stridor. I did discontinue the orders for stomach epinephrine placed in triage as a believe this would likely worsen the patient's symptoms. The remainder of the physical examination is notably completely unremarkable with the exception that the patient is quite fidgety, unable to sit still and appears extremely anxious. She has had significant improvement with anxiolysis using lorazepam 2 mg p.o. I do not see indication for labs or imaging at this point. I have strongly advised against ongoing cocaine abuse. At this time will discharge with return precautions and follow-u p recommendations. Verbal discharge instructions given a the bedside and opportunity for questions given. Medication warnings reviewed. Patient is in agreement with this plan and has verbalized understanding of return precautions and the need for primary care follow-up in the next 24-72 hours. - Vital Signs Vital signs: Temp Pulse Resp BP Pulse Ox 98.8 F 99 19 164/103 H 99 04/25/18 17:58 04/25/18 17:58 04/25/18 17:58 04/25/18 17:58 04/25/18 17:58 Discharge - Discharge Clinical Impression: Cocaine abuse, Anxiety reaction Condition: Stable Disposition: HOME, SELF-CARE Additional Instructions: Please return if you have thoughts of wanting to hurt yourself, hurt others, or have any other symptoms that are concerning to you. Please avoid illicit drugs. Your symptoms today are likely secondary to cocaine use.
[2018-04-26 01:22] VITALS: BP 150/89
== END 2018-04-25 21:15 | disposition home or self-care (01) ==
LOC: ER 17:52
DX: F14.10 Cocaine abuse, uncomplicated (principal); F41.1 Generalized anxiety disorder; R09.89 Other specified symptoms and signs involving the circulatory and respiratory systems; I25.2 Old myocardial infarction; Z88.8 Allergy status to other drugs, medicaments and biological substances
CPT/HCPCS: 99283

== ENCOUNTER 2018-04-29 09:56 | Emergency (ER) | payer SELFPAY ==
[2018-04-29] MEDS ORDERED: DEXAMETHASONE SOD PHOS INJ 10 MG/1 ML VIAL IM ONE (10:18)
--- NOTE | 2018-04-29 10:20 | ER Document Report ---
ED General - General Chief Complaint: Sore Throat Stated Complaint: SORE THROAT Time Seen by Provider: 04/29/18 10:09 Primary Care Provider: [facility] [Provider Group] - Follow up in 3-5 days [facility] [Provider Group] - Follow up in 3-5 days Notes: Patient is a 43-year-old female that presents to the emergency department for chief complaint of sore throat, and laryngitis. Patient states she has had her symptoms over the last several days, she is tried using Cepacol without much improvement so she decided come to the emergency department. She is had an associated cough as well. Denies any sick contacts that she is aware of. In addition to the symptoms she states she is had some dysuria and urinary frequency over the last month, she was prescribed Keflex about a month ago, but did not resolve her symptoms, she has been taking Azo to help with this, but it has been persistent and not improving. She denies any other complaints at this time. Her pain she currently rates in her throat as a 2 out of 10 describes as an aching sore throat. Denies any fevers, chills, night sweats, chest pain, shortness of breath, difficulty breathing, nausea, vomiting or abdominal pain. Past Medical History: Denies chronic medical conditions Past Surgical History: Adenoids and tonsillectomy, tubal ligation Social History: Admits to drinking alcohol every other day, denies tobacco or drug use. Family History: Reviewed and noncontributory for presenting illness Allergies: Reviewed, see documented allergy list. REVIEW OF SYSTEMS: Other than noted above, the 12 point review of systems was reviewed with the patient and were negative, all pertinent findings are included in the HPI. PHYSICAL EXAMINATION: Vital signs reviewed, nursing noted reviewed. GENERAL: Well-appearing, well-nourished and in no acute distress. HEAD: Atraumatic, normocephalic. EYES: Eyes appear normal, extraocular movements intact, sclera anicteric, conjunctiva are normal. ENT: nares patent, mild posterior oropharynx erythema, tonsils are surgically absent, no exudates, moist mucous membranes. TMs appear to have serous effusions bilaterally, no erythema or injection. NECK: Normal range of motion, supple without lymphadenopathy LUNGS: Breath sounds clear to auscultation bilaterally and equal. No wheezes rales or rhonchi. HEART: Regular rate and rhythm without murmurs ABDOMEN: Soft, nontender, normoactive bowel sounds. No rebound, guarding, or rigidity. No masses appreciated. EXTREMITIES: Nontender, good range of motion, no pitting or edema. NEUROLOGICAL: No focal neurological deficits. Moves all extremities spontaneously Motor and sensory grossly intact on exam. PSYCH: Normal mood, normal affect. SKIN: Warm, Dry, normal turgor, no rashes or lesions noted on exposed skin TRAVEL OUTSIDE OF THE [place] IN LAST 30 DAYS: No - Related Data Allergies/Adverse Reactions: diphenhydramine [From Benadryl] Allergy (Verified 04/29/18 09:57) lithium Allergy (Verified 04/29/18 09:57) Past Medical History - Social History Smoking Status: Never Smoker Frequency of alcohol use: every other day Drug Abuse: Cocaine Family History: Reviewed & Not Pertinent Patient has suicidal ideation: No Patient has homicidal ideation: No - Past Medical History Cardiac Medical History: Reports: Hx Heart Attack - Recently diagnosed. Neurological Medical History: Reports: Hx Seizures Renal/ Medical History: Denies: Hx Peritoneal Dialysis GI Medical History: Reports: Hx Hepatitis Psychiatric Medical History: Reports: Hx Anxiety, Hx Bipolar Disorder, Hx Depression, Hx Schizophrenia Infectious Medical History: Reports: Hx Hepatitis Past Surgical History: Reports: Hx Appendectomy, Hx Tonsillectomy - and adenoids, Hx Tubal Ligation - Immunizations Hx Diphtheria, Pertussis, Tetanus Vaccination: Yes Physical Exam - Vital signs Vitals: Temp Pulse Resp BP Pulse Ox 98.7 F 76 18 167/107 H 96 04/29/18 10:03 04/29/18 10:03 04/29/18 10:03 04/29/18 10:03 04/29/18 10:03 Course - Re-evaluation Re-evalutation: Patient seen and examined vital signs reviewed. Laboratory data and imaging were ordered as appropriate for the patient's presenting symptoms and complaint, with consideration of any critical or life threatening conditions that may be associated with their obtained history and exam as noted above. Patient was treated with IM Decadron Results were reviewed when available and demonstrated negative strep testing, UA was positive The patient was re-evaluated and was improved Evaluation was most consistent with acute pharyngitis, and UTI, patient be discharged home on Macrobid, prior cultures were reviewed, and was sensitive. Results were discussed with the patient at this point, after careful consideration I feel that that patient can be discharged from the emergency department, the patient was educated treatments and reasons to return to the emergency department based on their presumed diagnosis as noted above, they were advised to followup with a primary care physician in 2-3 days. Patient was agreeable to plan of care. *Note is created using voice recognition software and may contain spelling, syntax or grammatical errors. Laboratory 04/29/18 04/29/18 10:16 10:16 Urine Color JANE Urine Appearance CLOUDY Urine pH 6.0 Ur Specific Zeigler 1.017 Urine Protein 30 H Urine Glucose (UA) NEGATIVE Urine Ketones NEGATIVE Urine Blood MODERATE H Urine Nitrite POSITIVE H Urine Bilirubin NEGATIVE Urine Urobilinogen 4.0 H Ur Leukocyte Esterase MODERATE H Urine WBC (Auto) >182 Urine RBC (Auto) 19 Urine Bacteria (Auto) TRACE Squamous Epi Cells Auto 3 Urine Mucus (Auto) OCC Urine Ascorbic Acid NEGATIVE Group A Strep Rapid NEGATIVE - Vital Signs Vital signs: Temp Pulse Resp BP Pulse Ox 97.5 F 84 18 160/115 H 100 04/29/18 13:08 04/29/18 13:08 04/29/18 13:08 04/29/18 13:08 04/29/18 13:08 - Laboratory Laboratory results interpreted by me: 04/29/18 10:16 Urine Protein 30 H Urine Blood MODERATE H Urine Nitrite POSITIVE H Urine Urobilinogen 4.0 H Ur Leukocyte Esterase MODERATE H Discharge - Discharge Clinical Impression: UTI (urinary tract infection) Qualifiers: Urinary tract infection type: site unspecified Hematuria presence: with hematuria Qualified Code(s): N39.0 - Urinary tract infection, site not specified Pharyngitis Qualifiers: Pharyngitis/tonsillitis etiology: other specified organisms Qualified Code(s): J02.8 - Acute pharyngitis due to other specified organisms Condition: Stable Disposition: HOME, SELF-CARE Instructions: Urinary Tract Infection ([facility]) Additional Instructions: Please return to the emergency department if you have any worsening, or concern of your symptoms. Please return to the emergency department if you develop chest pain, difficulty breathing, severe abdominal pain, or ongoing vomiting. Please follow-up with your primary care physician in 2-3 days and any other recommended physicians. If prescribed, take all medications as directed. If you have any questions or concerns do not hesitate to return the emergency department for evaluation. Prescriptions: Fluticasone Propionate [Flonase Nasal Rogers 50 Mcg/Rogers 16 gm] 1 spray NASL Q12 #1 inhaler RX: Nitrofurantoin Macrocrystal [Macrodantin] 100 mg PO BID #14 capsule Referrals: [facility] [Provider Group] - Follow up in 3-5 days [facility] [Provider Group] - Follow up in 3-5 days
[2018-04-29 12:30] LABS: APPEARANCE,URINE CLOUDY; BILIRUBIN,URINE NEGATIVE (NEGATIVE); COLOR,URINE AMBER; GLUCOSE, URINE NEGATIVE (NEGATIVE); KETONES,URINE NEGATIVE (NEGATIVE); LEUKOCYTE ESTERASE,URINE MODERATE (NEGATIVE); NITRITE,URINE POSITIVE (NEGATIVE); PROTEIN,URINE 30 mg/dL (NEGATIVE); URINE SPECIFIC GRAVITY 1.017
[2018-04-29 13:13] VITALS: BP 160/115
== END 2018-04-29 13:12 | disposition home or self-care (01) ==
LOC: ER 09:56
DX: N39.0 Urinary tract infection, site not specified (principal); J02.9 Acute pharyngitis, unspecified; R05 Cough; F14.10 Cocaine abuse, uncomplicated; Z90.89 Acquired absence of other organs; Z88.8 Allergy status to other drugs, medicaments and biological substances
CPT/HCPCS: 99283; 96372; 87070; 87086; 87880; 87077; 87088; 81001; 87186; J1100

== ENCOUNTER 2018-08-19 12:51 | Emergency (ER) | payer SELFPAY ==
[2018-08-19 13:15] VITALS: BP 176/101
[2018-08-19] MEDS ORDERED: ACETAMINOPHEN 325 MG TABLET PO ONE (14:04)
[2018-08-19] MEDS ORDERED: NAPROXEN 250 MG TABLET PO ONE (14:09)
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
== END 2018-08-19 16:26 | disposition home or self-care (01) ==
LOC: ER 12:51
PROC: 2W3KX1Z Immobilization of Left Finger using Splint (ICD-10-PCS; principal; 2018-08-19)
DX: S62.617A Displaced fracture of proximal phalanx of left little finger, initial encounter for closed fracture (principal); M79.645 Pain in left finger(s); Y08.89XA Assault by other specified means, initial encounter; Z87.891 Personal history of nicotine dependence
CPT/HCPCS: 99283

== ENCOUNTER 2018-09-19 20:42 | Emergency (ER) | payer SELFPAY | END 2018-09-19 21:45 | disposition left against medical advice (07) | LOC: ER 20:42 | DX: Z53.21 Procedure and treatment not carried out due to patient leaving prior to being seen by health care provider (principal) ==

== ENCOUNTER 2018-09-25 05:14 | Emergency (ER) | payer SELFPAY ==
[2018-09-25 07:11] LABS: APPEARANCE,URINE SLIGHTLY-CLOUDY; BILIRUBIN,URINE NEGATIVE (NEGATIVE); COLOR,URINE YELLOW; GLUCOSE, URINE NEGATIVE (NEGATIVE); KETONES,URINE NEGATIVE (NEGATIVE); LEUKOCYTE ESTERASE,URINE MODERATE (NEGATIVE); NITRITE,URINE NEGATIVE (NEGATIVE); PROTEIN,URINE 30 mg/dL (NEGATIVE); URINE SPECIFIC GRAVITY 1.021
[2018-09-25 07:18] LABS: ADD MANUAL MICROSCOPIC YES
[2018-09-25 07:27] LABS: BACTERIA,URINE 1+ /HPF
[2018-09-25 08:52] VITALS: BP 168/88
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
== END 2018-09-25 08:52 | disposition home or self-care (01) ==
LOC: ER 05:14
DX: S05.12XA Contusion of eyeball and orbital tissues, left eye, initial encounter (principal); S62.627A Displaced fracture of middle phalanx of left little finger, initial encounter for closed fracture; Y04.8XXA Assault by other bodily force, initial encounter; N30.00 Acute cystitis without hematuria; R10.9 Unspecified abdominal pain; B19.20 Unspecified viral hepatitis C without hepatic coma; I25.2 Old myocardial infarction; Z98.51 Tubal ligation status
CPT/HCPCS: 81001; 87086; 87088; 87186; 99284

== ENCOUNTER 2018-12-12 12:58 | Emergency (ER) | payer SELFPAY ==
--- NOTE | 2018-12-12 13:08 | ER Document Report ---
ED General - General TRAVEL OUTSIDE OF THE [place] IN LAST 30 DAYS: No COUNTRY TRAVELED TO/FROM: [facility] <SHAMIKA BARRIOS - Last Filed: 12/12/18 17:48> <RAFFAELE ROBINS - Last Filed: 12/12/18 19:33> - General Stated Complaint: VAGINAL PAIN Time Seen by Provider: 12/12/18 13:07 - HPI Notes: 43-year-old female presents today for evaluation of substance abuse and vaginal pain. Patient states yesterday she took some cocaine and found out thereafter per her report that it was laced with methamphetamine, states that she was severely agitated, so she took some heroin to help her her "calm down". Patient states that she has had some vaginal issues for the last week or so. Patient is a poor historian. Denies fevers, chills, chest pain,palpitations, shortness of breath, dyspnea, nausea, vomiting, diarrhea, abdominal pain, hematuria,blurred vision, double vision, loss of vision, speech changes, LH, dizziness, syncope, headaches, wheezing, ST, URI, neck pain, weakness, bowel or bladder dysfunction, saddle anesthesia, numbness or tingling in bilateral upper or lower extremities equally, muscle paralysis, weakness in bilateral upper or lower extremities equally or rash. (SHAMIKA BARRIOS) - Related Data Allergies/Adverse Reactions: diphenhydramine [From Benadryl] Allergy (Verified 08/19/18 12:59) lithium Allergy (Verified 08/19/18 12:59) Past Medical History - General Information source: Patient - Social History Smoking Status: Unknown if Ever Smoked Family History: Reviewed & Not Pertinent - Past Medical History Cardiac Medical History: Reports: Hx Heart Attack - Recently diagnosed. Neurological Medical History: Reports: Hx Seizures Renal/ Medical History: Denies: Hx Peritoneal Dialysis GI Medical History: Reports: Hx Hepatitis Psychiatric Medical History: Reports: Hx Anxiety, Hx Bipolar Disorder, Hx D epression, Hx Schizophrenia Infectious Medical History: Reports: Hx Hepatitis Past Surgical History: Reports: Hx Appendectomy, Hx Tonsillectomy - and adenoids, Hx Tubal Ligation - Immunizations Hx Diphtheria, Pertussis, Tetanus Vaccination: Yes <SHAMIKA BARRIOS - Last Filed: 12/12/18 17:48> Physical Exam <SHAMIKA BARRIOS - Last Filed: 12/12/18 17:48> - Vital signs Vitals: Resp Pulse Ox 18 99 12/12/18 13:08 12/12/18 13:08 - Notes Notes: PHYSICAL EXAMINATION: GENERAL: Well-appearing, well-nourished and in no mild distress HEAD: Atraumatic, normocephalic. EYES: Pupils equal round and reactive to light, extraocular movements intact, conjunctiva are normal. ENT: Nares patent, oropharynx clear without exudates. Moist mucous membranes. NECK: Normal range of motion, supple without lymphadenopathy LUNGS: Breath sounds clear to auscultation bilaterally and equal. No wheezes rales or rhonchi. HEART: sinus tachycardia ABDOMEN: Soft, nontender, nondistended abdomen. No guarding, no rebound. No masses appreciated. Female : External genitalia without erythema, exudate or discharge. Vaginal vault is without discharge. Cervix is of normal color without lesion. There is no bleeding noted. Uterus is noted to be of normal size and nontender. No cervical motion tenderness is seen. No masses are palpated. s os closed, no adnexal tenderness or mass Musculoskeletal: Normal range of motion, no pitting or edema. No cyanosis. NEUROLOGICAL: Cranial nerves grossly intact. Normal speech, normal gait. Normal sensory, motor exams PSYCH:anxious SKIN: Warm, Dry, normal turgor, no rashes or lesions noted. (SHAMIKA BARRIOS) Course - Laboratory Result Diagrams: 12/12/18 13:13 12/12/18 13:13 <SHAMIKA BARRIOS - Last Filed: 12/12/18 17:48> - Laboratory Result Diagrams: 12/12/18 13:13 12/12/18 13:13 <RAFFAELE ROBINS - Last Filed: 12/12/18 19:33> - Re-evaluation Re-evalutation: Afebrile slightly tachycardic, nurse's notes reviewed. Patient admitted to cocaine and amphetamine use. Patient denies any chest pain or shortness of breath. Patient is reporting vaginal irritation. Patient is IVC per mental health. CBC and CMP unremarkable, initial troponin negative, EKG negative for STEMI. Patient's drug screen does show positive for cocaine, methamphetamine could be quantitated due to copious amount. Mental health has been at bedside to evaluate patient but will reevaluate her tomorrow when she is not under the influence of intoxicating substances. Patient has been placed in IVC paperwork. disposition given to marcus Correa at 2009 (SHAMIKA BARRIOS) 12/12/18 19:32 I did personally seen and examined this patient in conjunction with nurse practitioner Shamika Burkett with who is quite elevated and agitated after using cocaine and meth amphetamine use. Has evidence of psychosis and alteration in mental status, likely substance-induced however we cannot rule out behavioral health problem causing this as well. Needs IVC criteria. Paperwork has been signed. (RAFFAELE ROBINS) - Vital Signs Vital signs: Temp Pulse Resp BP Pulse Ox 98.7 F 16 131/89 H 97 12/12/18 18:01 12/12/18 19:02 12/12/18 19:02 12/12/18 19:02 - Laboratory Laboratory results interpreted by me: 12/12/18 12/12/18 12/12/18 13:13 13:13 15:09 RDW 14.1 H BUN 23 H Urine Protein 100 H Urine Ketones 20 H Urine Blood SMALL H Urine Urobilinogen 2.0 H Ur Leukocyte Esterase MODERATE H Salicylates < 1.0 L Acetaminophen < 10 L Discharge <SHAMIKA BARRIOS - Last Filed: 12/12/18 17:48> <RAFFAELE ROBINS - Last Filed: 12/12/18 19:33> - Discharge Clinical Impression: UTI (urinary tract infection), Cocaine abuse Condition: Stable Disposition: PSYCH HOSP/UNIT
[2018-12-12 13:28] LABS: ABSOLUTE LYMPHOCYTES (AUTO) 1.6 10^3/uL (0.5-4.7); ABSOLUTE MONOCYTES (AUTO) 0.7 10^3/uL (0.1-1.4); ABSOLUTE NEUT (AUTO) 5.5 10^3/uL (1.7-8.2); BASOPHILS % (AUTO) 0.5 % (0-2); EOSINOPHILS % (AUTO) 0.6 % (0-6); HEMATOCRIT 37.4 % (36.0-47.0); HEMOGLOBIN 12.7 g/dL (12.0-15.5); LYMPHOCYTES % (AUTO) 20.6 % (13-45); MEAN CORPUSCULAR HEMOGLOBIN 30.2 pg (27.0-33.4); MEAN CORPUSCULAR HGB CONC 33.9 g/dL (32.0-36.0); MEAN CORPUSCULAR VOLUME 89 fl (80-97); MONOCYTES % (AUTO) 9.1 % (3-13); PLATELET COUNT 278 10^3/uL (150-450); RED BLOOD COUNT 4.21 10^6/uL (3.72-5.28); RED CELL DISTRIBUTION WIDTH 14.1 % (11.5-14.0); SEGMENTED NEUTROPHILS % (AUTO) 69.2 % (42-78); TOTAL CELLS COUNTED % (AUTO) 100 %
[2018-12-12 13:51] LABS: ALBUMIN 3.8 g/dL (3.5-5.0); ALKALINE PHOSPHATASE 64 U/L (38-126); ANION GAP 9 (5-19); ASPARTATE AMINO TRANSFERASE 27 U/L (14-36); BILIRUBIN,DIRECT 0.2 mg/dL (0.0-0.4); BILIRUBIN,TOTAL 0.9 mg/dL (0.2-1.3); BLOOD UREA NITROGEN 23 mg/dL (7-20); CALCIUM 9.2 mg/dL (8.4-10.2); CARBON DIOXIDE 27 mmol/L (22-30); CHLORIDE 102 mmol/L (98-107); CREATINE KINASE 98 U/L (30-135); GLUCOSE 83 mg/dL (75-110); TOTAL PROTEIN 7.2 g/dL (6.3-8.2)
[2018-12-12 13:52] LABS: ACETAMINOPHEN < 10 ug/mL (10-30); ALCOHOL < 10 mg/dL (NONE DETECTED); C-REACTIVE PROTEIN < 5.0 mg/L (<10.0); SALICYLATE < 1.0 mg/dL (2.0-20.0)
--- NOTE | 2018-12-12 13:55 | PSYCHOLOGICAL NOTE ---
Psych Note - Psych Note Date seen by psych provider: 12/12/18 Time seen by psych provider: 13:31 - Chart review at 1331. Spoke to nurse at 1344. Psych Note: Presenting Problem: SA, used cocaine laced by friend with meth yesterday morning, at 1600 yesterday used Heroin to try to calm self down, helped to calm her down but agitation returned. Attending nurse described patient as poor historian given under the influence. [facility] saw patient 08/27/18 for reported OD of Clonidine and Klonopin, UDS was positive for cocaine then, patient stated she used everything because of chipping back tooth that was rubbing up against cheek and painful, she denied regular use of cocaine then and said she put a dab on the location of pain. In 2017 between August and October she was positive for cocaine and marijuana 2-3 times. Diagnosis: SA intoxication and likely the reason for psychomotor agitation and irritability Polysubstance Use Cocaine Use Disorder, Severe Methamphetamine Use Disorder, Moderate Cannabis Use Disorder, Moderate Medication recommendations made by the psychiatric medication provider, Dr. Kristofer MD., includes: Waiting on recommendation however an antipsychotic (Haldol, Zyprexa) used as PRN can be helpful when a patient is coming down off drugs Impression/Plan: Recommendation for 24 Hour IVC Petition given patient is under the influence of substances which inhibits cognition, is mind altering and impairs insight/judgment/impulse control. When patient can engage and have a dialogue conversation will encourage detox and other treatment. Consulted with Dr. Maravilla regarding the management and care of patient. ED physician in agreement with recommendations.
[2018-12-12 13:59] LABS: CREATINE KINASE MB 1.97 ng/mL (<4.55); TROPONIN I < 0.012 ng/mL
[2018-12-12 15:41] LABS: APPEARANCE,URINE CLOUDY; BILIRUBIN,URINE NEGATIVE (NEGATIVE); GLUCOSE, URINE NEGATIVE (NEGATIVE); KETONES,URINE 20 mg/dL (NEGATIVE); LEUKOCYTE ESTERASE,URINE MODERATE (NEGATIVE); NITRITE,URINE NEGATIVE (NEGATIVE); PROTEIN,URINE 100 mg/dL (NEGATIVE); URINE SPECIFIC GRAVITY 1.028
[2018-12-12 15:42] LABS: COLOR,URINE YELLOW
[2018-12-12 15:53] LABS: URINE BARBITURATES SCREEN NEGATIVE; URINE BENZODIAZEPINES SCREEN NEGATIVE; URINE COCAINE SCREEN UNCONFIRMED POSITIVE; URINE MARIJUANA (THC) SCREEN NEGATIVE; URINE METHADONE SCREEN NEGATIVE; URINE PHENCYCLIDINE SCREEN NEGATIVE
[2018-12-12] MEDS ORDERED: NORMAL SALINE 1000 ML 1,000 ML IV ONE (16:10)
[2018-12-12 17:31] LABS: BACTERIA (WET MOUNT) 4+ BACTERIA SEEN; EPITHELIALS (WET MOUNT) 3+ EPITHELIALS SEEN; T.VAGINALIS (WET MOUNT) NO TRICHOMONAS SEEN; WBCS (WET MOUNT) 2+ WBCS SEEN; YEAST (WET MOUNT) NO YEAST SEEN
[2018-12-12] MEDS ORDERED: NITROFURANTOIN MONOHYD/M-CRYST 100 MG CAPSULE PO ONE (18:33)
[2018-12-12 18:59] LABS: CHLAM PCR NOT DETECTED (NOT DETECT)
[2018-12-12] MEDS ORDERED: HALOPERIDOL LACTATE INJ 5 MG/1 ML VIAL IV ONE (20:40)
--- NOTE | 2018-12-12 21:48 | EKG REPORT ---
SEVERITY:- ABNORMAL ECG - SINUS RHYTHM SHORT [place] INTERVAL, ACCELERATED AV CONDUCTION BORDERLINE R WAVE PROGRESSION, ANTERIOR LEADS BORDERLINE T ABNORMALITIES, ANT-LAT LEADS BORDERLINE PROLONGED QT INTERVAL : Confirmed by: Bharati Camara MD 12-Dec-2018 21:47:51
[2018-12-13] MEDS ORDERED: CEFTRIAXONE 1 GM/D5W RTU 1 GM/50 ML RTUPB IV ONE (10:02)
[2018-12-13] MEDS ORDERED: PHENAZOPYRIDINE HCL 200 MG TABLET PO ONE (10:02)
--- NOTE | 2018-12-13 10:08 | ER Document Report ---
Doctor's Note Notes: 12/13/18 10:03 PHYSICAL EXAMINATION: GENERAL: Well-appearing and in no acute distress. HEAD: Atraumatic, normocephalic. ENT: nares patent, oropharynx clear without exudates. Moist mucous membranes. NECK: Normal range of motion, supple without lymphadenopathy LUNGS: CTAB and equal. No wheezes rales or rhonchi. HEART: Regular rate and rhythm without murmurs ABDOMEN: Soft, mild suprapubic tenderness. No McBurney or Bueon sign. No guarding, no rebound EXTREMITIES: Normal range of motion, no pitting edema. No cyanosis. BACK: No midline tenderness, no CVA tenderness. NEUROLOGICAL: Cranial nerves grossly intact. Normal speech. PSYCH: Normal mood, normal affect. No suicidal or homicidal ideation SKIN: Warm, Dry, normal turgor, no rashes or lesions noted Vital signs and diagnostic test results reviewed. Patient has been resting in room without complaint aside from suprapubic discomfort and dysuria. Patient does complain of urinary frequency. Urine culture is pending, will give a dose of IV Rocephin as well as Pyridium here. Patient does report occasional use of cocaine although denies typical use of methamphetamine. Patient does state that she would like information on outpatient treatment. Patient is not suicidal or homicidal at this time. Patient appears medically stable for discharge or transfer pending psychiatric consultation.
[2018-12-13] MEDS ORDERED: KETOROLAC TROMETHAMINE INJ/PF 30 MG/1 ML SDV IV ONE (13:45)
[2018-12-13 15:27] VITALS: BP 156/99
--- NOTE | 2018-12-15 20:53 | PSYCHOLOGICAL NOTE ---
Psych Note - Psych Note Date seen by psych provider: 12/13/18 Time seen by psych provider: 10:20 - Evaluation at 1020. Psych Note: Presenting Problem: 24 Hour IVC Petition due to under the influence of substances, used cocaine laced by friend with meth a couple mornings ago, then at 1600 same day used Heroin to try to calm self down, helped to calm her down but agitation returned. Patient was a poor historian yesterday given under the influence. Today she was sleepy but able to wake up when addressed and answer questions appropriately. She reported a history of Bipolar and no medications for a long time. She denied SI/HI. She stated she wanted help and expressed desire for detox. She gave verbal consent to provide linkage and referral to the [facility] who accepted her and will provide transportation at 1445. Diagnosis: SA intoxication and likely the reason for psychomotor agitation and irritability Polysubstance Use Cocaine Use Disorder, Severe Methamphetamine Use Disorder, Moderate Cannabis Use Disorder, Moderate Bipolar Disorder by Hx per patient Impression/Plan: Patient is cleared from acute psychiatric services. Recommendation to rescind 24 Hour IVC Petition. Patient expressed desire for help/detox and gave verbal consent to provide linkage and referral to [facility] who accepted patient and will provide transportation at 1445. Consulted with Dr. Maravilla regarding the management and care of patient. ED Physician in agreement with recommendations.
== END 2018-12-13 15:27 | disposition home or self-care (01) ==
LOC: ER 12:58
DX: N39.0 Urinary tract infection, site not specified (principal); F14.10 Cocaine abuse, uncomplicated; F15.10 Other stimulant abuse, uncomplicated; R10.2 Pelvic and perineal pain; R31.9 Hematuria, unspecified; R41.82 Altered mental status, unspecified; Z98.51 Tubal ligation status
CPT/HCPCS: 93005; 36415; 87086; 82553; 87210; 80307 ×4; 82550; 85025; 86140; 80053; 81001; 84484; 87491; 87591; 93010; J1630; J1885; J3490; J7030; J0696; J8499; 96361; 96365; 96375; 99285

== ENCOUNTER 2019-03-11 11:59 | Emergency (ER) | payer SELFPAY ==
--- NOTE | 2019-03-11 12:11 | ER Document Report ---
ED Medical Screen (RME) - General Chief Complaint: Abdominal Pain Stated Complaint: ABDOMINAL PAIN Time Seen by Provider: 03/11/19 12:08 TRAVEL OUTSIDE OF THE [place] IN LAST 30 DAYS: No COUNTRY TRAVELED TO/FROM: [facility] Notes: 03/11/19 12:10 Patient is a 43-year-old female who presents complaining of lower pelvic pain that is been consistent for the past 3 weeks if not worsening since her diagnosis of PID at another facility. Patient states that she finished the medicines that she was told to. She has been able to eat and drink, but does have decreased p.o. intake. She is having some burning with urination. She is having normal bowel movements. No fever, chest pain, shortness of breath. I have treated and performed a rapid initial assessment of this patient. A comprehensive ED assessment and evaluation of the patient, analysis of test results and completion of medical decision making process will be conducted by additional ED providers. PHYSICAL EXAMINATION: GENERAL: Well-appearing, well-nourished and in no acute distress. A&Ox4. Answers questions appropriately. Abdomen: Limited exam in triage, but there is tenderness to the lower pelvic area. - Related Data Allergies/Adverse Reactions: diphenhydramine [From Benadryl] Allergy (Verified 03/11/19 12:08) lithium Allergy (Verified 03/11/19 12:08) Past Medical History - Past Medical History Cardiac Medical History: Reports: Hx Heart Attack - Recently diagnosed. Neurological Medical History: Reports: Hx Seizures Renal/ Medical History: Denies: Hx Peritoneal Dialysis GI Medical History: Reports: Hx Hepatitis Psychiatric Medical History: Reports: Hx Anxiety, Hx Bipolar Disorder, Hx Depression, Hx Schizophrenia Infectious Medical History: Reports: Hx Hepatitis Past Surgical History: Reports: Hx Appendectomy, Hx Tonsillectomy - and adenoids, Hx Tubal Ligation - Immunizations Hx Diphtheria, Pertussis, Tetanus Vaccination: Yes Physical Exam - Vital signs Vitals: Temp Pulse Resp BP Pulse Ox 98.1 F 61 12 164/97 H 99 03/11/19 12:05 03/11/19 12:05 03/11/19 12:05 03/11/19 12:05 03/11/19 12:05 Course - Vital Signs Vital signs: Temp Pulse Resp BP Pulse Ox 98.1 F 61 12 164/97 H 99 03/11/19 12:05 03/11/19 12:05 03/11/19 12:05 03/11/19 12:05 03/11/19 12:05
[2019-03-11] MEDS ORDERED: NORMAL SALINE 1000 ML 1,000 ML IV ONE (13:29)
[2019-03-11 13:37] LABS: ABSOLUTE LYMPHOCYTES (AUTO) 2.6 10^3/uL (0.5-4.7); ABSOLUTE MONOCYTES (AUTO) 0.5 10^3/uL (0.1-1.4); ABSOLUTE NEUT (AUTO) 4.7 10^3/uL (1.7-8.2); BASOPHILS % (AUTO) 0.4 % (0-2); EOSINOPHILS % (AUTO) 0.2 % (0-6); HEMATOCRIT 42.7 % (36.0-47.0); HEMOGLOBIN 14.6 g/dL (12.0-15.5); MEAN CORPUSCULAR HEMOGLOBIN 31.1 pg (27.0-33.4); MEAN CORPUSCULAR HGB CONC 34.1 g/dL (32.0-36.0); MEAN CORPUSCULAR VOLUME 91 fl (80-97); MONOCYTES % (AUTO) 6.4 % (3-13); PLATELET COUNT 266 10^3/uL (150-450); RED BLOOD COUNT 4.69 10^6/uL (3.72-5.28); RED CELL DISTRIBUTION WIDTH 13.5 % (11.5-14.0); TOTAL CELLS COUNTED % (AUTO) 100 %; WHITE BLOOD COUNT 7.8 10^3/uL (4.0-10.5)
[2019-03-11] MEDS ORDERED: MORPHINE SULFATE 10 MG/ML INJ IV ONE (13:46)
[2019-03-11 13:55] LABS: ALBUMIN 4.7 g/dL (3.5-5.0); ALKALINE PHOSPHATASE 48 U/L (38-126); ANION GAP 10 (5-19); ASPARTATE AMINO TRANSFERASE 35 U/L (14-36); BILIRUBIN,DIRECT 0.3 mg/dL (0.0-0.4); BILIRUBIN,TOTAL 0.6 mg/dL (0.2-1.3); BLOOD UREA NITROGEN 14 mg/dL (7-20); CALCIUM 9.6 mg/dL (8.4-10.2); CARBON DIOXIDE 24 mmol/L (22-30); CHLORIDE 106 mmol/L (98-107); GLUCOSE 74 mg/dL (75-110); TOTAL PROTEIN 8.3 g/dL (6.3-8.2)
--- NOTE | 2019-03-11 14:02 | RADIOLOGY REPORT (SQ) ---
EXAM DESCRIPTION: U/S NON OB PEL TV W/DOPPLER COMPLETED DATE/TIME: 03/11/2019 1:13 pm REASON FOR STUDY: pelvic pain, recent PID history COMPARISON: 12/31/2018 TECHNIQUE: Dynamic and static grayscale images acquired of the pelvis via transvaginal approach and recorded on PACS. Additional selected color Doppler and spectral images recorded. LIMITATIONS: None. FINDINGS: UTERUS: Contour normal. No mass. ENDOMETRIAL STRIPE: No focal or generalized thickening. No masses. CERVIX: 2.3 cm. No nabothian cysts. RIGHT OVARY AND DOPPLER: Normal size. The 3.1 cm cystic area seen in the right ovary on the prior st udy is no longer evident. However, on the current study there is a questionable 2.9 x 2.1 x 1.8 cm e chogenic lesion. This has an appearance of normal ovarian tissue. LEFT OVARY AND DOPPLER: Normal size. No worrisome masses. Normal arterial vascular flow without evide nce for torsion. FREE FLUID: None noted. OTHER: No other significant finding. MEASUREMENTS: UTERUS: 8.8 x 5.9 x 5.1 cm. ENDOMETRIAL STRIPE: 1.3 cm. RIGHT OVARY: 5 x 2.9 x 2 cm. LEFT OVARY: 2.9 x 2.1 x 1.8 cm. IMPRESSION: Cystic area previously seen on the right ovary is no longer present. Questionable 2.9 x 2.1 x 1.8 cm echogenic lesion in the right ovary. The appearance of this has more of an appearance of normal ovarian tissue. Recommend additional follow-up ultrasound in 6 to 12 weeks. TECHNICAL DOCUMENTATION: JOB ID: [id number] [employer]- All Rights Reserved Rev-07/27 Reading location - IP/workstation name: [email or web address]
[2019-03-11 14:34] LABS: APPEARANCE,URINE SLIGHTLY-CLOUDY; BILIRUBIN,URINE NEGATIVE (NEGATIVE); COLOR,URINE YELLOW; GLUCOSE, URINE NEGATIVE (NEGATIVE); KETONES,URINE 20 mg/dL (NEGATIVE); PROTEIN,URINE NEGATIVE (NEGATIVE); URINE SPECIFIC GRAVITY 1.016; UROBILINOGEN,URINE NEGATIVE mg/dL (<2.0)
--- NOTE | 2019-03-11 14:41 | ER Document Report ---
ED GI/ - General Chief Complaint: Abdominal Pain Stated Complaint: ABDOMINAL PAIN Time Seen by Provider: 03/11/19 12:08 Primary Care Provider: [facility] [Provider Group] - 03/13/19 Notes: Patient is a 43-year-old female who presents to the emergency department with lower abdominal pain. She states that she has recently been treated for PID in another facility. She also states that she could possibly have "cancer" but has not seen FIRE CONTROL TECHNICIAN B in regards to this issue due to financial reasons. TRAVEL OUTSIDE OF THE [place] IN LAST 30 DAYS: No COUNTRY TRAVELED TO/FROM: [facility] - Related Data Allergies/Adverse Reactions: diphenhydramine [From Benadryl] Allergy (Verified 03/11/19 12:08) lithium Allergy (Verified 03/11/19 12:08) Past Medical History - Social History Smoking Status: Never Smoker Chew tobacco use (# tins/day): No Frequency of alcohol use: None Drug Abuse: Marijuana Family History: Reviewed & Not Pertinent Patient has suicidal ideation: No Patient has homicidal ideation: No - Past Medical History Cardiac Medical History: Reports: Hx Heart Attack - Recently diagnosed. Neurological Medical History: Reports: Hx Seizures Renal/ Medical History: Denies: Hx Peritoneal Dialysis GI Medical History: Reports: Hx Hepatitis Psychiatric Medical History: Reports: Hx Anxiety, Hx Bipolar Disorder, Hx Depression, Hx Schizophrenia Infectious Medical History: Reports: Hx Hepatitis Past Surgical History: Reports: Hx Appendectomy, Hx Tonsillectomy - and adenoids, Hx Tubal Ligation - Immunizations Hx Diphtheria, Pertussis, Tetanus Vaccination: Yes Review of Systems - Review of Systems Notes: REVIEW OF SYSTEMS: CONSTITUTIONAL : Denies recent illness. Denies recent unintentional weight loss. Denies fever, chills, or sweats. EENT: Denies eye, ear, throat, or mouth pain, discharge, or symptoms. Denies nasal or sinus congestion. CARDIOVASCULAR: Denies chest pain. RESPIRATORY: Denies shortness of breath, cough, congestion, difficulty breathing, or wheezing. GASTROINTESTINAL: Denies nausea, vomiting, and diarrhea. Denies abdominal pain. Denies constipation. GENITOURINARY: Denies difficulty urinating, burning, blood in urine, urgency or frequency. FEMALE GENITOURINARY: See HPI. MUSCULOSKELETAL: Denies neck and back pain. Denies joint pain or swelling. SKIN: Denies rash, itchiness, or lesions HEMATOLOGIC : Denies easy bruising or bleeding. LYMPHATIC: Denies swollen, painful, enlarged glands. NEUROLOGICAL: Denies no numbness or tingling denies weakness. Denies headache. Denies altered mental status. Denies alteration in speech. PSYCHIATRIC: Denies stress, anxiety, alteration in sleep patterns, or depression. All other systems reviewed and negative. Physical Exam - Vital signs Vitals: Temp Pulse Resp BP Pulse Ox 98.1 F 61 12 164/97 H 99 03/11/19 12:05 03/11/19 12:05 03/11/19 12:05 03/11/19 12:05 03/11/19 12:05 - Notes Notes: PHYSICAL EXAMINATION: GENERAL: Appears well, healthy, well-nourished, no acute distress. HEAD: Normocephalic, atraumatic. EYES: PERRL, conjunctiva normal, all extraocular movements intact, sclera nonicteric ENT: Moist mucous membranes. NECK: Supple, no noticeable swelling, redness, rash. Normal range of motion. LUNGS: Equal breath sounds bilaterally and clear to auscultation. No wheezes rales or rhonchi. CARDIOVASCULAR: S1-S2, regular rate, regular rhythm. Radial pulses 2+, normal. ABDOMEN: Normoactive bowel sounds. Soft, nontender, no guarding, no rebound tenderness, and no masses palpated. EXTREMITIES: Normal strength and range of motion, no pitting or edema. No cyanosis. NEUROLOGICAL: Moves all extremities upon command. Strength 5/5 in all extr emities. PSYCH: Normal mood, normal affect. SKIN: Warm, dry. No rash, lesions, ulcerations noted. Normal skin turgor. DESKTOP SUPPORT SPECIALIST: Cervical motion tenderness noted. Right adnexal tenderness noted. Small amount of white discharge noted. Course - Re-evaluation Re-evalutation: 03/11/19 14:50 Pelvic exam done with KODI Ruiz at bedside. Patient had cervical motion tenderness noted on physical exam. Right adenexal tenderness noted. No left adenexal tenderness noted. This is indicative of pelvic inflammatory disease. Transvaginal ultrasound showed that the patient no longer has her right ovarian cyst but there may be a lesion on her right ovary. They are recommending ultrasound in 6-12 weeks. 03/11/19 15:10 It was brought to my attention that the PCT did not label the wet mount and gonorrhea and chlamydia test with the right patient labels. The PCT informed the patient of this with myself at bedside. I offered the patient to have another swab done without an actual pelvic exam and she is in agreement to have this done. Pelvic swabs done by myself. 03/11/19 15:45 Patient's hematology is unremarkable. Chemistries show glucose being 74. Patient was given juice and crackers. Urinalysis shows a moderate amount of leukocytes, but she also has 4+ epithelial cells and 4+ bacteria noted on her wet mount. No yeast or trichomonas noted. She will be emperically treated for gonorrhea and chlamydia. I had a very lengthy conversation with the patient about using drugs to relieve her pain. I told her that drugs will not fix the problem. I told her that I am very concerned that she is not following up with FIRE CONTROL TECHNICIAN B. I told her that she needs to call them and make an appointment to have an official Pap smear done. She states that she will have this done. She will be treated for pelvic inflammatory disease with Flagyl and doxycycline. She states that she has these medications. I told her that she needs to make sure she finishes all of her antibiotics, because she states that she has some left. I told her that she should be done with her antibiotics at this time. If she is in agreement to follow-up with FIRE CONTROL TECHNICIAN B. Follow-up precautions were given. Verbal discharge instructions were given to the patient. They verbalized understanding. They are stable for discharge. - Vital Signs Vital signs: Temp Pulse Resp BP Pulse Ox 98.4 F 88 20 146/90 H 96 03/11/19 16:54 03/11/19 16:54 03/11/19 16:54 03/11/19 16:54 03/11/19 16:54 - Laboratory Result Diagrams: 03/11/19 13:25 03/11/19 13:25 Laboratory results interpreted by me: 03/11/19 03/11/19 13:25 14:18 Glucose 74 L Total Protein 8.3 H Urine Ketones 20 H Urine Blood SMALL H Leukocyte Esterase Rfl MODERATE H Discharge - Discharge Clinical Impression: Pelvic pain, Pelvic inflammatory disease, Drug abuse Condition: Stable Disposition: HOME, SELF-CARE Additional Instructions: Your are being treated for pelvic inflammatory disease. You are being started on 2 different antibiotics and you need to take these until you finish them. Please return if you have worsening pain, persistent vomiting, spike a fever greater than 101F, or have any other symptoms that are concerning to you. Please follow closely with you primary care physician or your FIRE CONTROL TECHNICIAN B at your earliest ability. Please make sure you follow-up with FIRE CONTROL TECHNICIAN B in regards to your ultrasound results. Please stop doing drugs. Prescriptions: Ketorolac Tromethamine [Toradol 10 mg Tablet] 10 mg PO Q6HP PRN #20 tablet PRN Reason: Doxycycline Hyclate 100 mg PO BID #14 capsule Metronidazole [Flagyl 500 mg Tablet] 500 mg PO Q6H #28 tablet Referrals: [facility] [Provider Group] - 03/13/19
[2019-03-11 14:55] LABS: URINE BARBITURATES SCREEN NEGATIVE; URINE BENZODIAZEPINES SCREEN NEGATIVE; URINE MARIJUANA (THC) SCREEN NEGATIVE; URINE METHADONE SCREEN NEGATIVE; URINE PHENCYCLIDINE SCREEN NEGATIVE
[2019-03-11 14:59] LABS: URINE AMPHETAMINES SCREEN UNCONFIRMED POSITIVE; URINE COCAINE SCREEN UNCONFIRMED POSITIVE
[2019-03-11 15:31] LABS: BACTERIA (WET MOUNT) 4+ BACTERIA SEEN; EPITHELIALS (WET MOUNT) 4+ EPITHELIALS SEEN; RBCS (WET MOUNT) NO RBCS SEEN; T.VAGINALIS (WET MOUNT) NO TRICHOMONAS SEEN; WBCS (WET MOUNT) FEW WBCS SEEN; YEAST (WET MOUNT) NO YEAST SEEN
[2019-03-11] MEDS ORDERED: CEFTRIAXONE INJ 250 MG VIAL IM ONE (15:56)
[2019-03-11] MEDS ORDERED: AZITHROMYCIN 250 MG TABLET PO ONE (15:56)
[2019-03-11] MEDS ORDERED: LIDOCAINE 1% INJ-PF (10 MG/ML) 30 ML SDV INJ ONE (15:56)
[2019-03-11 16:55] VITALS: BP 146/90
[2019-03-11 16:58] LABS: CHLAM PCR NOT DETECTED (NOT DETECT)
== END 2019-03-11 16:55 | disposition home or self-care (01) ==
LOC: ER 11:59
DX: N73.9 Female pelvic inflammatory disease, unspecified (principal); R10.2 Pelvic and perineal pain; F19.10 Other psychoactive substance abuse, uncomplicated; R10.30 Lower abdominal pain, unspecified; I25.2 Old myocardial infarction
CPT/HCPCS: 99284; 96372; 96361; 96374; 96375; 36415; 87210; 83690; 85025; 81025; 80053; 81001; 80307; 87491; 87591; 76830; 93976; J3490; J2270; J7030; J0696

== ENCOUNTER 2019-08-04 12:46 | Emergency (ER) | payer SELFPAY ==
[2019-08-04 12:51] VITALS: BP 162/105
--- NOTE | 2019-08-04 13:43 | ER Document Report ---
ED Medical Screen (RME) - General Chief Complaint: Abdominal Pain Stated Complaint: ABDOMINAL PAIN Time Seen by Provider: 08/04/19 13:41 Mode of Arrival: Ambulatory Information source: Patient Notes: 44-year-old female presents to ED for complaint of left lower abdominal pain. She states her partner recently tested positive for chlamydia. She states her vagina feels dry hard painful. She states she does not smoke she drinks weekly and she does smoke pot. Patient is alert oriented respirations regular and unlabored speaking in full sentences walks with even steady gait. Dates she lynette lly wants to be treated for the chlamydia because her partner was positive. I have greeted and performed a rapid initial assessment of this patient. A comprehensive ED assessment and evaluation of the patient, analysis of test results and completion of medical decision making process will be conducted by an additional ED providers. TRAVEL OUTSIDE OF THE [place] IN LAST 30 DAYS: No - Related Data Allergies/Adverse Reactions: diphenhydramine [From Benadryl] Allergy (Verified 03/11/19 12:08) lithium Allergy (Verified 03/11/19 12:08) Past Medical History - Social History Frequency of alcohol use: Social Drug Abuse: Marijuana - Past Medical History Cardiac Medical History: Reports: Hx Heart Attack - Recently diagnosed. Neurological Medical History: Reports: Hx Seizures Renal/ Medical History: Denies: Hx Peritoneal Dialysis GI Medical History: Reports: Hx Hepatitis Psychiatric Medical History: Reports: Hx Anxiety, Hx Bipolar Disorder, Hx Depression, Hx Schizophrenia Infectious Medical History: Reports: Hx Hepatitis Past Surgical History: Reports: Hx Appendectomy, Hx Tonsillectomy - and adenoids, Hx Tubal Ligation - Immunizations Hx Diphtheria, Pertussis, Tetanus Vaccination: Yes Physical Exam - Vital signs Vitals: Temp Pulse BP Pulse Ox 98.5 F 83 162/105 H 100 08/04/19 12:49 08/04/19 12:49 08/04/19 12:49 08/04/19 12:49 Course - Vital Signs Vital signs: Temp Pulse Resp BP Pulse Ox 98.5 F 83 162/105 H 100 08/04/19 13:36 08/04/19 12:49 08/04/19 12:49 08/04/19 12:49
[2019-08-04 14:02] LABS: APPEARANCE,URINE SLIGHTLY-CLOUDY; BILIRUBIN,URINE NEGATIVE (NEGATIVE); COLOR,URINE YELLOW; GLUCOSE, URINE NEGATIVE (NEGATIVE); KETONES,URINE NEGATIVE (NEGATIVE); LEUKOCYTE ESTERASE,URINE SMALL (NEGATIVE); NITRITE,URINE NEGATIVE (NEGATIVE); PROTEIN,URINE 100 mg/dL (NEGATIVE); URINE SPECIFIC GRAVITY 1.027
[2019-08-04 14:17] LABS: URINE AMPHETAMINES SCREEN NEGATIVE; URINE BARBITURATES SCREEN NEGATIVE; URINE BENZODIAZEPINES SCREEN NEGATIVE; URINE COCAINE SCREEN UNCONFIRMED POSITIVE; URINE MARIJUANA (THC) SCREEN NEGATIVE; URINE METHADONE SCREEN NEGATIVE; URINE PHENCYCLIDINE SCREEN NEGATIVE
[2019-08-04 14:35] LABS: ABSOLUTE LYMPHOCYTES (AUTO) 1.9 10^3/uL (0.5-4.7); ABSOLUTE MONOCYTES (AUTO) 0.5 10^3/uL (0.1-1.4); ABSOLUTE NEUT (AUTO) 5.9 10^3/uL (1.7-8.2); BASOPHILS % (AUTO) 0.5 % (0-2); EOSINOPHILS % (AUTO) 0.2 % (0-6); HEMATOCRIT 39.9 % (36.0-47.0); HEMOGLOBIN 13.9 g/dL (12.0-15.5); LYMPHOCYTES % (AUTO) 23.2 % (13-45); MEAN CORPUSCULAR HEMOGLOBIN 31.2 pg (27.0-33.4); MEAN CORPUSCULAR HGB CONC 34.8 g/dL (32.0-36.0); MEAN CORPUSCULAR VOLUME 90 fl (80-97); MONOCYTES % (AUTO) 5.4 % (3-13); PLATELET COUNT 319 10^3/uL (150-450); RED BLOOD COUNT 4.44 10^6/uL (3.72-5.28); RED CELL DISTRIBUTION WIDTH 14.1 % (11.5-14.0); SEGMENTED NEUTROPHILS % (AUTO) 70.7 % (42-78); TOTAL CELLS COUNTED % (AUTO) 100 %; WHITE BLOOD COUNT 8.4 10^3/uL (4.0-10.5)
[2019-08-04 14:50] LABS: ALBUMIN 3.7 g/dL (3.5-5.0); ALKALINE PHOSPHATASE 52 U/L (38-126); ANION GAP 6 (5-19); ASPARTATE AMINO TRANSFERASE 33 U/L (14-36); BILIRUBIN,TOTAL 0.2 mg/dL (0.2-1.3); BLOOD UREA NITROGEN 16 mg/dL (7-20); CALCIUM 8.9 mg/dL (8.4-10.2); CARBON DIOXIDE 26 mmol/L (22-30); CHLORIDE 106 mmol/L (98-107); GLUCOSE 101 mg/dL (75-110); POTASSIUM 3.7 mmol/L (3.6-5.0)
[2019-08-04] MEDS ORDERED: HYDROCODONE/ACETAMINOPHEN 5-325 MG TABLET PO ONE (15:22)
[2019-08-04 15:32] LABS: CHLAM PCR NOT DETECTED (NOT DETECT)
--- NOTE | 2019-08-04 15:38 | ER Document Report ---
ED General - General Chief Complaint: Abdominal Pain Stated Complaint: ABDOMINAL PAIN Time Seen by Provider: 08/04/19 13:41 Mode of Arrival: Ambulatory Information source: Patient TRAVEL OUTSIDE OF THE [place] IN LAST 30 DAYS: No - HPI Notes: Patient states she has left lower quadrant pain. She states that it started "several months ago". She states that today this became worse so she came to emergency room. She states intercourse is sometimes painful but not all the time. She states she does have pain in the left lower quadrant that radiates into the vaginal area. It is intermittent. She does not know of anything that makes it worse except occasionally intercourse and she states 1 time several months ago when she had a vaginal ultrasound it was painful. It is made better when the above things are not done. She has had no vomiting or diarrhea. No problems with urination. No fevers or rashes. She states she was told one time that she had an "abnormal cervix". However she never followed up for this. - Related Data Allergies/Adverse Reactions: diphenhydramine [From Benadryl] Allergy (Verified 03/11/19 12:08) lithium Allergy (Verified 03/11/19 12:08) Past Medical History - General Information source: Patient - Social History Smoking Status: Never Smoker Frequency of alcohol use: Social Drug Abuse: Marijuana Family History: Reviewed & Not Pertinent Patient has homicidal ideation: No - Past Medical History Cardiac Medical History: Reports: Hx Heart Attack - Recently diagnosed. Neurological Medical History: Reports: Hx Seizures Renal/ Medical History: Denies: Hx Peritoneal Dialysis GI Medical History: Reports: Hx Hepatitis Psychiatric Medical History: Reports: Hx Anxiety, Hx Bipolar Disorder, Hx Depression, Hx Schizophrenia Infectious Medical History: Reports: Hx Hepatitis Past Surgical History: Reports: Hx Appendectomy, Hx Tonsillectomy - and adenoids, Hx Tubal Ligation - Immunizations Hx Diphtheria, Pertussis, Tetanus Vaccination: Yes Review of Systems - Review of Systems Constitutional: denies: Chills, Fever Cardiovascular: denies: Chest pain, Palpitations Respiratory: denies: Cough, Short of breath -: Yes All other systems reviewed and negative Physical Exam - Vital signs Vitals: Temp Pulse BP Pulse Ox 98.5 F 83 162/105 H 100 08/04/19 12:49 08/04/19 12:49 08/04/19 12:49 08/04/19 12:49 Interpretation: Hypertensive - General General appearance: Appears well, Alert - HEENT Head: Normocephalic, Atraumatic Eyes: Normal Pupils: PERRL - Respiratory Respiratory status: No respiratory distress Chest status: Nontender Breath sounds: Normal Chest palpation: Normal - Cardiovascular Rhythm: Regular Heart sounds: Normal auscultation Murmur: No - Abdominal Inspection: Normal Distension: No distension Bowel sounds: Normal Tenderness: Nontender Organomegaly: No organomegaly - Genitourinary External exam: Normal Speculum exam: Cervix closed, Other - Cervix appears slightly larger than normal but with uniformity. She has tender on bimanual exam of the vaginal [place] as well as the adnexa and of the cervix. I cannot find any obvious abnormal masses or lesions. Vaginal bleeding: None Bimanuel exam: Cervical motion tender - Back Back: Normal, Nontender - Extremities General upper extremity: Normal inspection, Nontender, Normal color, Normal ROM, Normal temperature General lower extremity: Normal inspection, Nontender, Normal color, Normal ROM, Normal temperature, Normal weight bearing. No: Jose's sign - Neurological Neuro grossly intact: Yes Cognition: Normal Orientation: AAOx4 [place] Coma Scale Eye Opening: Spontaneous Carol Coma Scale Verbal: Oriented Carol Coma Scale Motor: Obeys Commands Carol Coma Scale Total: 15 Speech: Normal Motor strength normal: LUE, RUE, LLE, RLE Sensory: Normal - Psychological Associated symptoms: Normal affect, Normal mood - Skin Skin Temperature: Warm Skin Moisture: Dry Skin Color: Normal Course - Re-evaluation Re-evalutation: 08/04/19 18:21 Patient presents with complaints of vaginal pain lower abdominal pain and exposure to chlamydia. She is positive for gonorrhea. Need to follow-up with INSTALLER TECHNICIAN. I am also going to treat her with doxycycline and Rocephin. I also give her some pain medicine for home. Her vital signs are stable and she is nontoxic-appearing. - Vital Signs Vital signs: Temp Pulse Resp BP Pulse Ox 98.5 F 83 162/105 H 100 08/04/19 13:36 08/04/19 12:49 08/04/19 12:49 08/04/19 12:49 - Laboratory Result Diagrams: 08/04/19 14:12 08/04/19 14:12 Laboratory results interpreted by me: 08/04/19 08/04/19 08/04/19 13:46 13:46 14:12 RDW 14.1 H Urine Protein 100 H Urine Blood SMALL H Urine Urobilinogen 2.0 H Ur Leukocyte Esterase SMALL H Urine Ascorbic Acid 40 H N.gonorrhoeae DNA (PCR) DETECTED H - Diagnostic Test Radiology reviewed: Image reviewed, Reports reviewed Discharge - Discharge Clinical Impression: Gonorrhea UTI (urinary tract infection) Qualifiers: Urinary tract infection type: acute cystitis Hematuria presence: without hematuria Qualified Code(s): N30.00 - Acute cystitis without hematuria Condition: Stable Disposition: HOME, SELF-CARE Instructions: Gonorrhea ([facility]), Urinary Tract Infection ([facility]) Additional Instructions: Please call an INSTALLER TECHNICIAN doctor as soon as possible to arrange follow-up Prescriptions: Doxycycline Hyclate 100 mg PO BID 7 Days #14 tablet. Hydrocodone/Acetaminophen [[place] 5-325 mg Tablet] 1 tab PO Q6 PRN 3 Days #12 tablet PRN Reason: Forms: Return to Work Referrals: KAMERON BROWN MD [ACTIVE STAFF] - Follow up in 3-5 days
[2019-08-04 15:44] LABS: BACTERIA (WET MOUNT) 3+ BACTERIA SEEN; EPITHELIALS (WET MOUNT) 4+ EPITHELIALS SEEN; RBCS (WET MOUNT) NO RBCS SEEN; T.VAGINALIS (WET MOUNT) NO TRICHOMONAS SEEN; WBCS (WET MOUNT) 3+ WBCS SEEN; YEAST (WET MOUNT) NO YEAST SEEN
[2019-08-04] MEDS ORDERED: CEFTRIAXONE INJ 250 MG VIAL IM ONE (17:02)
[2019-08-04] MEDS ORDERED: LIDOCAINE 1% INJ-PF (10 MG/ML) 30 ML SDV NEB ONE (17:02)
[2019-08-04] MEDS ORDERED: DOXYCYCLINE HYCLATE 100 MG TABLET PO ONE (17:06)
--- NOTE | 2019-08-04 17:26 | RADIOLOGY REPORT (SQ) ---
EXAM DESCRIPTION: U/S NON OB PEL W/DOPPLER IMAGES COMPLETED DATE/TIME: 08/04/2019 4:04 pm REASON FOR STUDY: llq pain COMPARISON: None. TECHNIQUE: Dynamic and static grayscale images acquired of the pelvis via transabdominal approach an d recorded on PACS. Additional selected color Doppler and spectral images recorded. LIMITATIONS: None. FINDINGS: UTERUS: Contour normal. No mass. ENDOMETRIAL STRIPE: Prominent. CERVIX: 2.5 cm. RIGHT OVARY AND DOPPLER: Normal size. No worrisome masses. Normal arterial vascular flow without evid ence for torsion. 2.4 cm complex cyst. LEFT OVARY AND DOPPLER: Normal size. No worrisome masses. Normal arterial vascular flow without evide nce for torsion. FREE FLUID: None noted. OTHER: No other significant finding. MEASUREMENTS: UTERUS: 8 x 5.1 x 5.8 cm. ENDOMETRIAL STRIPE: 13.7 mm. RIGHT OVARY: 3 x 2.1 x 2.9 cm. LEFT OVARY: 3.1 x 2.5 x 2.6 cm. IMPRESSION: The endometrium is prominent, but if the patient is premenopausal this is probably withi n normal limits. There is a small complex cyst on the right ovary, almost certainly benign. No kris tional imaging is required for this. TECHNICAL DOCUMENTATION: JOB ID: [id number] 2010 [employer]- All Rights Reserved Reading location - IP/workstation name: [email or web address]
== END 2019-08-04 18:00 | disposition left against medical advice (07) ==
LOC: ER 12:46
DX: A54.9 Gonococcal infection, unspecified (principal); N30.00 Acute cystitis without hematuria; R10.32 Left lower quadrant pain; R10.2 Pelvic and perineal pain; F12.10 Cannabis abuse, uncomplicated; Z88.8 Allergy status to other drugs, medicaments and biological substances
CPT/HCPCS: 99284; 96372; 36415; 87210; 84703; 85025; 80053; 81001; 80307; 87491; 87591; 76856; 93976; J3490; J0696